=== PATIENT | male | born 1985 | race Caucasian/White ===

== ENCOUNTER 2024-05-16 11:41 | Outpatient (OUT) | payer MEDICAID, SELFPAY ==
[2024-05-16 12:18] LABS: Basophils Absolute Auto 0.1 10^3/uL (0.0-0.1); Basophils Percent Auto 1.1 % (0.2-2.0); Eosinophils Absolute Auto 0.3 10^3/uL (0.0-0.7); Eosinophils Percent Auto 4.7 % (0.9-7.0); Hematocrit 44.3 % (42.0-54.0); Immature Granulocytes Abs Auto 0.02 10^3/uL (0.00-0.03); Immature Granulocytes Pct Auto 0.4 % (0.0-0.5); Lymphocytes Absolute Auto 1.5 10^3/uL (1.2-3.8); Lymphocytes Percent Auto 28.5 % (20.5-60.0); Mean Corpuscular HGB Conc 33.9 g/dL (29.9-35.2); Mean Corpuscular Hemoglobin 31.4 pg (25.9-34.0); Mean Corpuscular Volume 92.9 fL (80.0-94.0); Mean Platelet Volume 10.1 fL (9.5-13.5); Monocytes Absolute Auto 0.6 10^3/uL (0.3-0.8); Monocytes Percent Auto 10.7 % (1.7-12.0); Neutrophils Absolute Auto 2.9 10^3/uL (1.4-6.5); Neutrophils Percent Auto 54.6 % (43.0-75.0); Platelet Count 230 10^3/uL (150-450); Red Blood Count 4.77 10^6/uL (4.70-6.10); Red Cell Distribution Width 12.6 % (11.0-15.0); White Blood Count 5.3 10^3/uL (4.0-11.0)
[2024-05-16 13:06] LABS: Alanine Aminotransferase 55 U/L (16-63); Albumin Globulin Ratio 1.1; Albumin Level 3.6 g/dL (3.4-5.0); Alkaline Phosphatase 95 U/L (46-116); Anion Gap 12.6; Aspartate Amino Transferase 19 U/L (15-37); BUN Creatinine Ratio 20.2; Bilirubin Total 0.3 mg/dL (0.2-1.0); Carbon Dioxide 26.8 mmol/L (21.0-32.0); Chloride 106 mmol/L (98-107); Cholesterol 201 mg/dL (<=200); Estimated GFR (African America >60 (>=60); Estimated GFR (Non-African Ame >60 (>=60); Globulin 3.2 g/dL; Glucose 107 mg/dL (74-106); HDL Cholesterol 50 mg/dL (40-60); Potassium 4.4 mmol/L (3.5-5.1); Sodium 141 mmol/L (136-145); Total Protein 6.8 g/dL (6.4-8.2); Triglycerides 104 mg/dL (<=150); VLDL CHOLESTEROL 20.8 mg/dL
== END 2024-05-16 11:42 | disposition home or self-care (01) ==
LOC: LAB 11:46
PROVIDERS: PCP Family Medicine; Visit Provider Family Medicine
DX: I10 Essential (primary) hypertension (principal)
CPT/HCPCS: 36415; 80053; 80061; 85025

== ENCOUNTER 2024-05-26 12:41 | Outpatient (OUT) | payer OTHER, SELFPAY ==
--- OUTSIDE RECORDS SUMMARY | 2024-05-26 12:48 | XMS_ITS | CCD ---
Author Organization [facility] Care Team Providers Care Tow Driver Name Role Phone COLEMAN LIU Admitting Unavailable COLEMAN LIU Attending Unavailable TISHA, DR IVY Oates Primary Care Unavailable COLEMAN LIU Consulting Unavailable AHDOOT, ANTHONY Consulting Unavailable TISHA, DR IVY Oates Primary Care Unavailable SCOTTY OLIVERA Admitting Unavailable SCOTTY OLIVERA Attending Unavailable JOAQUINA HOPE Consulting Unavailable AHDOOT, ANTHONY Consulting Unavailable TISHA, DR IVY Oates Primary Care Unavailable MARKER, DR VELARDE Admitting Unavailable MARKER, DR VELARDE Attending Unavailable JOAQUINA BONILLA Consulting Unavailable MAYIVAN WALKER Consulting Unavailable TISHA, DR IVY Oates Primary Care Unavailable YAROSH, OLGA Consulting Unavailable SCOTTY OLIVERA Admitting Unavailable SCOTTY OLIVERA Attending Unavailable GONZALEZCLIFTON Byers Consulting Unavailable Ivy Gomez Primary Care Provider [phone] IVY GOMEZ Primary Care Unavailable Luana Simons Unavailable DO Rory Moya Attending Provider [phone] MD Ivy Gomez Primary Care Provider Ivy Gomez Primary Care Unavailable Rory Moya Attending Unavailabl e Rory Moya Admitting Unavailabl e Allergies Allergy Classification Reported Allergen(s) Allergy Type Date of Onset Reaction(s) Facility (1 source) Amoxicillin / Clavulanate Drug Allergy [facility] Repository (1 source) Amoxicillin-Pot Clavulanate Propensity to adverse reactions to drug 2 [facility] (1 source) Amoxicillin / Clavulanate Drug Allergy throat swelling [place] Other (1 source) Unable to Assess Drug allergy (disorder) 2 [facility] Repository Medications Current Medications Medication Drug Class(es) Dates Sig (Normalized) Sig (Original) cephalexin 500 mg oral capsule (1 source) Cephalosporin Antibacterial Start: 09-01-2021 take 1 capsule by mouth every eight hours Cephalexin 500 MG 1 capsule Orally tid for 10 day(s) Aug, Active fluticasone (1 source) Corticosteroid Start: 09-01-2021 take 2 spray(s) nasal route once daily FLONASE 50 mcg 2 sprays nasally qd 2 sprays to each nostril daily until your symptoms improve Aug, Active hydrocortisone 10 mg/ml / neomycin 3.5 mg/ml / polymyxin b 23261 unt/ml otic suspension (1 source) Aminoglycoside Antibacterial, Polymyxin-class Antibacterial, Corticosteroid Start: 09-01-2021 Neomycin-Polymyx in-HC 3.5-39928-1 3 drops right ear Three times a day for 7 days Aug, Active lisinopril 10 mg oral tablet (2 sources) Angiotensin Converting Enzyme Inhibitor take 1 tablet by mouth once daily lisinopril (PRINIVIL;ZESTRI L) 10 MG tablet Take 10 mg by mouth daily 0 Active meclizine hydrochloride 25 mg oral tablet (1 source) Antiemetic take 1 tablet by mouth three times daily as needed for dizziness meclizine (ANTIVERT) 25 MG tablet Take 25 mg by mouth 3 times daily as needed for Dizziness 0 Active predniSONE 20 mg oral tablet (1 source) Start: 09-01-2021 take 1 tablet by mouth every twelve hours predniSONE 20 MG 1 tablet Orally bid for 5 day(s) Aug, Active Problems Active Problems Problem Classification Problem Date Documented Da te Episodic/Chronic Conditions associated with dizziness or vertigo (6 sources) Dizziness and giddiness; Translations: [Dizziness] Onset: 03-19-2022 Episodic Essential hypertension (1 source) Essential (primary) hypertension; Translations: [ESSENTIAL PRIMARY HYPERTENSION] Onset: 04-17-2022 Chronic Heart valve disorders (1 source) Nonrheumatic mitral (valve) prolapse; Translations: [NONRHEUMATIC MITRAL VALVE PROLAPSE] Onset: 09-16-2021 Chronic Nonspecific chest pain (6 sources) Chest pain, unspecified; Translations: [Other chest pain] Onset: 07-22-2021 Episodic Other aftercare (1 source) Other correction (current) drug therapy; 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] Onset: 04-17-2022 Episodic Other nervous system disorders (1 source) Ataxia, unspecified; Translations: [Ataxia, unspecified] Onset: 07-21-2022 Episodic Substance-related disorders (1 source) Nicotine dependence, cigarettes, uncomplicated; Translations: [NICOTINE DEPEND CIGARETTES UNCOMP] Onset: 09-16-2021 Chronic Unclassified (1 source) COUGH, UNSPECIFIED; Translations: [COUGH, UNSPECIFIED] Onset: 09-16-2021 Unclassified (1 source) PERSONAL HISTORY OF COVID-19; Translations: [PERSONAL HISTORY OF COVID-19] Onset: 07-22-2021 Past or Other Problems Problem Classification Problem Date Documented Da te Episodic/Chronic Other ear and sense organ disorders (1 source) Unspecified acute noninfective otitis externa, right ear Onset: 09-01-2021 Resolved: 09-01-2021 Episodic Other lower respiratory disease (1 source) Shortness of breath; Translations: [SHORTNESS OF BREATH] Onset: 09-16-2021 Episodic Other upper respiratory infections (1 source) Acute sinusitis, unspecified Onset: 09-01-2021 Resolved: 09-01-2021 Episodic Otitis media and related conditions (1 source) Otitis media, unspecified, right ear Onset: 09-01-2021 Resolved: 09-01-2021 Episodic Results Test Name Value Interpretation Reference Range Facility MR head/brain wo/w conon MR head/brain wo/w con [place] [address] MRI Report Signed Patient: Doroteo Sharif MR#: [id number] : 1985 Acct:[id number] Age/Sex: 37 / M ADM Date: 07/21/22 Loc: MR Room: Type: [facility] Attending Dr: Rory Moya DO Copies to: Hugh Moya DO Ordering Provider: Hugh Moya DO Date of Service: 07/21/22 MR/MR head/brain wo/w con: R27.0 MR head/brain wo/w con 07/21/2022 10:19 AM SIGN AND SYMPTOMS: Left-sided headaches, dizziness PROTOCOL: Multiplanar multisequence MR images of the brain were obtained with and without IV contrast CONTRAST: 17 mL of intravenous ProHance COMPARISON: None. FINDINGS: Extra axial spaces: Age appropriate. Hemorrhage: None. Ventricular system: Within normal limits. Basal cisterns: Within normal limits and not effaced. Cerebral parenchyma: Normal in signal. There is no abnormal postcontrast enhancement. Midline shift: None.. Cerebellum: Within normal limits. Brainstem: Within normal limits. OTHER: Calvarium: Normal marrow signal. Vascular system: Satisfactory flow voids within the anterior and posterior circulation. Visualized Paranasal sinuses: Within normal limits. Visualized Orbits: Within normal limits. Visualized upper cervical spine: Within normal limits. Sella and skull base: Within normal limits. MR/MR head/brain wo/w con IMPRESSION: No acute intracranial pathology. No abnormal postcontrast enhancement. Impression dictated by: Cornelius Bernal M.D.07/21/2022 1:58 PM Dictation Location: [place] [address] Transcribed By: [facility] 07/21/22 1358 Dictated By: Cornelius Bernal II, MD 07/21/22 1351 Signed By: 07/21/22 1358 [facility] Troponinon 04-19-2022 Troponin, High Sens <6 Normal 0-22 [facility] Comment on above: Result Comment: High Sensitivity Troponin values cannot be compared with other Troponin methodologies. Patients with high levels of Biotin oral intake (i.e >5mg/day) may have falsely decreased Troponin levels. Samples collected within 8 hours of biotin intake may require additional information for diagnosis. Performed By: #### T MICHELL #### [facility] [address] [place] [address] Coil Winder Strap: Bonilla Wilson MD Troponin, High Sensitivity <6 0 - 22 ng/L [facility] Comment on above: High Sensitivity Troponin values cannot be compared with other Troponin methodologies. Patients with high levels of Biotin oral intake (i.e >5mg/day) may have falsely decreased Troponin levels. Samples collected within 8 hours of biotin intake may require additional information for diagnosis. [facility] XR CHEST PORTABLEon 04-19-20 XR CHEST PORTABLE EXAMINATION: ONE XRAY VIEW OF THE CHEST 04/19/2022 4:25 pm COMPARISON: None. HISTORY: ORDERING SYSTEM PROVIDED HISTORY: Intermittent chest pain TECHNOLOGIST PROVIDED HISTORY: Intermittent chest pain FINDINGS: The lungs are without acute focal process. There is no effusion or pneumothorax. The cardiomediastinal silhouette is without acute process. The osseous structures are without acute process. IMPRESSION: No acute process. Interpreted by: Eduardo Mcclure MD Signed by: Eduardo Mcclure MD 04/19/[address] [facility] No acute process. [facility] EXAMINATION: ONE XRAY VIEW OF THE CHEST 04/19/2022 4:25 pm COMPARISON: None. HISTORY: ORDERING SYSTEM PROVIDED HISTORY: Intermittent chest pain TECHNOLOGIST PROVIDED HISTORY: Intermittent chest pain FINDINGS: The lungs are without acute focal process. There is no effusion or pneumothorax. The cardiomediastinal silhouette is without acute process. The osseous structures are without acute process. [facility] Eduardo Mcclure MD - 04/19/2022 EXAMINATION: ONE XRAY VIEW OF THE CHEST 04/19/2022 4:25 pm COMPARISON: None. HISTORY: ORDERING SYSTEM PROVIDED HISTORY: Intermittent chest pain TECHNOLOGIST PROVIDED HISTORY: Intermittent chest pain FINDINGS: The lungs are without acute focal process. There is no effusion or pneumothorax. The cardiomediastinal silhouette is without acute process. The osseous structures are without acute process. IMPRESSION: No acute process. [facility] Phone: Radiology Study observation (narrative) [facility] [employer] Phone: XR CHEST PORTABLEOrdered By: Eduardo Mcclure on 04-19-2022 [facility] [employer] [facility] Phone: CBC AUTO DIFFon 04-15-2022 BASO # 0.1 103/ul Normal 0.0-0.1 [facility] Comment on above: Performed By: #### C BC ####[facility] [address] [place], [place] [address]FgAlicia Agosto Basophils/100 WBC (Bld) 0.7 % Normal 0.2-2.0 [facility] Comment on above: Performed By: #### C BC ####[facility] [address] [place] [id number]. Chioma Agosto EO # 0.2 103/ul Normal 0.0-0.7 [facility] Comment on above: Performed By: #### C BC ####[facility] [address] [place] [id number]. Chioma Agosto Eosinophils/100 WBC (Bld) 1.8 % Normal 0.9-7.0 [facility] Comment on above: Performed By: #### C BC ####[facility] [address] [place], [place] [address]Dr. Chioma Agosto Erythrocyte distribution width (RBC) [Ratio] 13.0 % Normal 11.0-15.0 [facility] Comment on above: Performed By: #### C BC ####[facility] Ph[address] [place], [place] [address]Dr. Chioma Agosto Hematocrit (Bld) [Volume fraction] 44.9 % Normal 42.0-54.0 [facility] Comment on above: Performed By: #### C BC ####[facility] [address] [place], [place] [address]Dr. Chioma Agosto Hemoglobin (Bld) [Mass/Vol] 14.9 g/dL Normal 14.0-18.0 [facility] Comment on above: Performed By: #### C BC ####[facility] [address] [place], [place] [address]Dr. Chioma Agosto IG # 0.03 10e3/ul Normal 0.00-0.03 [facility] Comment on above: Performed By: #### C BC ####[facility] [address] [place], [place] [address]Dr. Chioma Agosto IG % 0.4 % Normal 0.0-0.5 [facility] Comment on above: Performed By: #### C BC ####[facility] [address] [place], [place] [address]Dr. Chioma Agosto LYMPH # 2.6 103/ul Normal 1.2-3.8 [facility] Comment on above: Performed By: #### C BC ####[facility] [address] [place] [id number]. Chioma Agosto Lymphocytes/100 WBC (Bld) 31.8 % Normal 20.5-60.0 [facility] Comment on above: Performed By: #### C BC ####[facility] [address]th[address] [place] [id number]. Chioma Agosto MANUAL DIFF REQ NO Normal [facility] Comment on above: Performed By: #### C BC ####[facility] [address] [place] [id number]. Chioma Agosto MCH (RBC) [Entitic mass] 31.8 pg Normal 25.9-34.0 [facility] Comment on above: Performed By: #### C BC ####[facility] [address] [place], [place] [id number]. Chioma Surendra MCHC (RBC) [Mass/Vol] 33.2 g/dL Normal 29.9-35.2 [facility] Comment on above: Performed By: #### C BC ####[facility] [address] [place] [id number]. Chioma Agosto MCV (RBC) [Entitic vol] 95.7 fL Critically high 80.0-94.0 [facility] Comment on above: Performed By: #### C BC ####[facility] [address] [place], [place] [address]Dr. Chioma Surendra MONO # 0.6 103/ul Normal 0.3-0.8 [facility] Comment on above: Performed By: #### C BC ####[facility] [address] [place], [place] [id number]. Chioma Surendra Monocytes/100 WBC (Bld) 7.3 % Normal 1.7-12.0 [facility] Comment on above: Performed By: #### C BC ####[facility] [address] [place], [place] [id number]. Chioma Agosto NEUT # 4.8 103/ul Normal 1.4-6.5 [facility] Comment on above: Performed By: #### C BC ####[facility] [address] [place] [id number]. Chioma Agosto Neutrophils/100 WBC (Bld) 58.0 % Normal 43.0-75.0 [facility] Comment on above: Performed By: #### C BC ####[facility] [address] [place] [id number]. Chioma Agosto Platelet mean volume (Bld) [Entitic vol] 10.7 fL Normal 9.5-13.5 [facility] Comment on above: Performed By: #### C BC ####[facility] [address] [place] [id number]. Chioma Agosto PLT 213 103/ul Normal 150-450 [facility] Comment on above: Performed By: #### C BC ####[facility] [address] [place] [address]Dr. Chioma Agosto RBC 4.69 106/ul Critically low 4.70-6.10 [facility] Comment on above: Performed By: #### C BC ####[facility] [address] [place] [id number]. Chioma Agosot WBC 8.2 103/ul Normal 4.0-11.0 [facility] Comment on above: Performed By: #### C BC ####[facility] [address] [place] [address]Dr. Chioma Agosto LIPASEon 04-15-2022 Lipase [Catalytic activity/Vol] 47.0 U/L Critically low 73.0-393.0 [facility] Comment on above: Performed By: #### C MP, HSTROPN, LIPA, MG #### [facility] [address] [place] [address] [address] Chioma Agosto MAGNESIUMon 04-15-2022 Magnesium [Mass/Vol] 2.0 mg/dL Normal 1.8-2.4 [facility] Comment on above: Performed By: #### C MP, HSTROPN, LIPA, MG #### [facility] [address] [place] [address] [address] Chioma Agosto PROF 14(COMP METB)on 022 Albumin [Mass/Vol] 4.2 g/dL Normal 3.4-5.0 [facility] Comment on above: Performed By: #### C MP, HSTROPN, LIPA, MG #### [facility] [address] [place] [address] Dr. Chioma Agosto Albumin/Globulin [Mass ratio] 1.4 {ratio} Normal [facility] Comment on above: Performed By: #### C MP, HSTROPN, LIPA, MG #### [facility] [address] [place] [address] Dr. Chioma Agosto ALP [Catalytic activity/Vol] 82 U/L Normal 46-116 [facility] Comment on above: Performed By: #### C MP, HSTROPN, LIPA, MG #### [facility] [address] [place] [address] Dr. Chioma Agosto ALT [Catalytic activity/Vol] 31 U/L Normal 16-63 [facility] Comment on above: Performed By: #### C MP, HSTROPN, LIPA, MG #### [facility] [address] [place] [address] Dr. Chioma Agosto Anion gap [Moles/Vol] 14.1 mmol/L Normal [facility] Comment on above: Performed By: #### C MP, HSTROPN, LIPA, MG #### [facility] [address] [place] [address] Dr. Chioma Agosto AST [Catalytic activity/Vol] 20 U/L Normal 15-37 [facility] Comment on above: Performed By: #### C MP, HSTROPN, LIPA, MG #### [facility] [address] [place] [address] Dr. Chioma Agosto Bilirubin [Mass/Vol] 0.6 mg/dL Normal 0.2-1.0 [facility] Comment on above: Performed By: #### C MP, HSTROPN, LIPA, MG #### [facility] [address] [place] [address] Dr. Chioma Agosto Calcium [Mass/Vol] 9.3 mg/dL Normal 8.5-10.1 [facility] Comment on above: Performed By: #### C MP, HSTROPN, LIPA, MG #### [facility] [address] [place] [address] [address] Chioma Agosto Chloride [Moles/Vol] 105 mmol/L Normal 98-107 [facility] Comment on above: Performed By: #### C MP, HSTROPN, LIPA, MG #### [facility] [address] [place] [address] [address] Chioma Agosto CO2 [Moles/Vol] 25.6 mmol/L Normal 21.0-32.0 [facility] Comment on above: Performed By: #### C MP, HSTROPN, LIPA, MG #### [facility] [address] [place] [address] [address] Chioma Agosto Creatinine [Mass/Vol] 0.87 mg/dL Normal 0.70-1.30 [facility] Comment on above: Performed By: #### C MP, HSTROPN, LIPA, MG #### [facility] [address] [place] [address] [address] Chioma Agosto EGFR-AF NIGERIEN >60 Normal >=60 [facility] Comment on above: Performed By: #### C MP, HSTROPN, LIPA, MG #### [facility] [address] [place] [address] Dr. Chioma Agosto EGFR-NON AF NIGERIEN >60 Normal >=60 [facility] Comment on above: Performed By: #### C MP, HSTROPN, LIPA, MG #### [facility] [address] [place] [address] [address] Chioma Agosto Globulin (S) [Mass/Vol] 2.9 g/dL Normal [facility] Comment on above: Performed By: #### C MP, HSTROPN, LIPA, MG #### [facility] [address] [place] [address] [address] Chioma Agosto Glucose [Mass/Vol] 123 mg/dL Critically high 74-106 [facility] Comment on above: Performed By: #### C MP, HSTROPN, LIPA, MG #### [facility] [address] [place] [address] Dr. Chioma Agosto Potassium [Moles/Vol] 3.7 mmol/L Normal 3.5-5.1 [facility] Comment on above: Performed By: #### C MP, HSTROPN, LIPA, MG #### [facility] [address] [place] [address] Dr. Chioma Agosto Protein [Mass/Vol] 7.1 g/dL Normal 6.4-8.2 [facility] Comment on above: Performed By: #### C MP, HSTROPN, LIPA, MG #### [facility] [address] [place] [address] Dr. Chioma Agosto Sodium [Moles/Vol] 141 mmol/L Normal 136-145 [facility] Comment on above: Performed By: #### C MP, HSTROPN, LIPA, MG #### [facility] [address] [place] [address] Dr. Chioma Agosto Urea nitrogen [Mass/Vol] 14.0 mg/dL Normal 7.0-18.0 [facility] Comment on above: Performed By: #### C MP, HSTROPN, LIPA, MG #### [facility] [address] [place] [address] Dr. Chioma Agosto Urea nitrogen/Creatinine [Mass ratio] 16.1 mg/mg Normal [facility] Comment on above: Performed By: #### C MP, HSTROPN, LIPA, MG #### [facility] [address] [place] [address] Dr. Chioma Agosto TROPONIN, HIGH SENSITIVITYon 04-15-2022 HSTROP 4.6 pg/mL Normal 4.0-76.1 [facility] Comment on above: Result Comment: CUT- OFF POINTS HAVE BEEN ESTABLISHED BASED ON THE FOURTH UNIVERSAL DEFINITIONS OF MYOCARDIAL INFARCTION. THE UPPER REFERENCE LIMIT (URL) OF TROPONIN, DEFINED THE 99TH PERCENTILE OF cTnI DISTRIBUTION IN A REFERENCE POPULATION, HAS BEEN CONFIRMED THE DECISION THRESHOLD FOR NE DIAGNOSIS. Performed By: #### H STROPN #### [facility] [address] [place] [address] [address] Chioma Agosto HSTROP 4.8 pg/mL Normal 4.0-76.1 [facility] Comment on above: Result Comment: CUT- OFF POINTS HAVE BEEN ESTABLISHED BASED ON THE FOURTH UNIVERSAL DEFINITIONS OF MYOCARDIAL INFARCTION. THE UPPER REFERENCE LIMIT (URL) OF TROPONIN, DEFINED THE 99TH PERCENTILE OF cTnI DISTRIBUTION IN A REFERENCE POPULATION, HAS BEEN CONFIRMED THE DECISION THRESHOLD FOR NE DIAGNOSIS. Performed By: #### C MP, HSTROPN, LIPA, MG #### [facility] [address] [place] [address] [address] Chioma Agosto XR CHEST 1 Von 04-15-2022 XR CHEST 1 V EXAM: XR CHEST 1 V HISTORY: CHEST PAIN, UNSPECIFIED EXAM: XR CHEST 1 V INDICATION: 37 years old Male CHEST PAIN, UNSPECIFIED COMPARISON: March 19, 2022 FINDINGS: The cardiac silhouette is normal. There is no pulmonary edema. The lungs are clear. There is no pneumonia. There is no pneumothorax. There is no abnormal foreign body. IMPRESSION: There is no acute abnormality. Electronically authenticated by: CLIFTON GONZALEZ Date: 2022-04-15 19:29 Normal [facility] CBC AUTO DIFFon 03-19-2022 BASO # 0.1 103/ul Normal 0.0-0.1 [facility] Comment on above: Performed By: #### C BC #### [facility] [address] [place] [address] [address] Chioma Agosto Basophils/100 WBC (Bld) 0.9 % Normal 0.2-2.0 [facility] Comment on above: Performed By: #### C BC #### [facility] [address] [place] [address] [address] Chioma Agosto EO # 0.2 103/ul Normal 0.0-0.7 [facility] Comment on above: Performed By: #### C BC #### [facility] [address] [place] [address] [address] Chioma Agosto Eosinophils/100 WBC (Bld) 4.1 % Normal 0.9-7.0 [facility] Comment on above: Performed By: #### C BC #### [facility] [address] [place] [address] Dr. Chioma Agosto Erythrocyte distribution width (RBC) [Ratio] 13.1 % Normal 11.0-15.0 [facility] Comment on above: Performed By: #### C BC #### [facility] [address] [place] [address] Dr. Chioma Agosto Hematocrit (Bld) [Volume fraction] 42.7 % Normal 42.0-54.0 [facility] Comment on above: Performed By: #### C BC #### [facility] [address] [place] [address] Dr. Chioma Agosto Hemoglobin (Bld) [Mass/Vol] 14.6 g/dL Normal 14.0-18.0 [facility] Comment on above: Performed By: #### C BC #### [facility] [address] [place] [address] Dr. Chioma Agosto IG # 0.01 10e3/ul Normal 0.00-0.03 [facility] Comment on above: Performed By: #### C BC #### [facility] [address] [place] [address] Dr. Chioma Agosto IG % 0.2 % Normal 0.0-0.5 [facility] Comment on above: Performed By: #### C BC #### [facility] [address] [place] [address] Dr. Chioma Agosto LYMPH # 2.0 103/ul Normal 1.2-3.8 [facility] Comment on above: Performed By: #### C BC #### [facility] [address] [place] [address] Dr. Chioma Agosto Lymphocytes/100 WBC (Bld) 34.5 % Normal 20.5-60.0 [facility] Comment on above: Performed By: #### C BC #### [facility] [facility] [address] [place] [address] Dr. Chioma Agosto MANUAL DIFF REQ NO Normal [facility] Comment on above: Performed By: #### C BC #### [facility] [address] [place] [address] Dr. Chioma Agosto MCH (RBC) [Entitic mass] 31.9 pg Normal 25.9-34.0 [facility] Comment on above: Performed By: #### C BC #### [facility] [address] [place] [address] Dr. Chioma Agosto MCHC (RBC) [Mass/Vol] 34.2 g/dL Normal 29.9-35.2 [facility] Comment on above: Performed By: #### C BC #### [facility] [address] [place] [address] Dr. Chioma Agosto MCV (RBC) [Entitic vol] 93.2 fL Normal 80.0-94.0 [facility] Comment on above: Performed By: #### C BC #### [facility] [address] [place] [address] Dr. Chioma Agosto MONO # 0.5 103/ul Normal 0.3-0.8 [facility] Comment on above: Performed By: #### C BC #### [facility] [address] [place] [address] Dr. Chioma Agosto Monocytes/100 WBC (Bld) 8.9 % Normal 1.7-12.0 [facility] Comment on above: Performed By: #### C BC #### [facility] [address] [place] [address] Dr. Chioma Agosto NEUT # 3.0 103/ul Normal 1.4-6.5 [facility] Comment on above: Performed By: #### C BC #### [facility] [address] [place] [address] Dr. Chioma Agosto Neutrophils/100 WBC (Bld) 51.4 % Normal 43.0-75.0 [facility] Comment on above: Performed By: #### C BC #### [facility] [address] [place] [address] Dr. Chioma Agosto Platelet mean volume (Bld) [Entitic vol] 10.2 fL Normal 9.5-13.5 [facility] Comment on above: Performed By: #### C BC #### [facility] [address] [address] [address] Chioma Agosto PLT 191 103/ul Normal 150-450 [facility] Comment on above: Performed By: #### C BC #### [facility] [address] [place], [place] [address] Dr. Chioma Agosto RBC 4.58 106/ul Critically low 4.70-6.10 [facility] Comment on above: Performed By: #### C BC #### [facility] [address] [address] [address] Chioma Agosto WBC 5.8 103/ul Normal 4.0-11.0 [facility] Comment on above: Performed By: #### C BC #### [facility] [address] [address] [address] Chioma Agosto PROF 14(COMP METB)on 022 Albumin [Mass/Vol] 3.9 g/dL Normal 3.4-5.0 [facility] Comment on above: Performed By: #### H ANNAMARIA, CMP ####[facility] [address] [address]DrAlicia Agosto Albumin/Globulin [Mass ratio] 1.3 {ratio} Normal [facility] Comment on above: Performed By: #### H ANNAMARIA, CMP ####[facility] [address] [address]Dr. Chioma Agosto ALP [Catalytic activity/Vol] 101 U/L Normal 46-116 [facility] Comment on above: Performed By: #### H FLORENTINOPN, CMP ####[facility] [address] [address]Dr. Chioma Agosto ALT [Catalytic activity/Vol] 38 U/L Normal 16-63 [facility] Comment on above: Performed By: #### H ANNAMARIA, CMP ####[facility] [address] [address]DrAlicia Agosto Anion gap [Moles/Vol] 11.4 mmol/L Normal [facility] Comment on above: Performed By: #### H FLORENTINOPN, CMP ####[facility] [address] [address]Dr. Chioma Agosto AST [Catalytic activity/Vol] 17 U/L Normal 15-37 [facility] Comment on above: Performed By: #### H STROPN, CMP ####[facility] [address] [address]Dr. Chioma Agosto Bilirubin [Mass/Vol] 0.2 mg/dL Normal 0.2-1.0 [facility] Comment on above: Performed By: #### H STROPN, CMP ####[facility] [address] [address]Dr. Chioma Agosto Calcium [Mass/Vol] 8.9 mg/dL Normal 8.5-10.1 [facility] Comment on above: Performed By: #### H STROPN, CMP ####[facility] [address] [place], [place] [address]Dr. Chioma Agosto Chloride [Moles/Vol] 108 mmol/L Critically high 98-107 [facility] Comment on above: Performed By: #### H STROPN, CMP ####[facility] Ir[address] [place], [place] [address]Dr. Chioma Agosto CO2 [Moles/Vol] 25.6 mmol/L Normal 21.0-32.0 [facility] Comment on above: Performed By: #### H STROPN, CMP ####[facility] [address] [place], [place] [address]Dr. Chioma Agosto Creatinine [Mass/Vol] 0.77 mg/dL Normal 0.70-1.30 [facility] Comment on above: Performed By: #### H STROPN, CMP ####[facility] [address] [address]Dr. Chioma Agosto EGFR-AF NIGERIEN >60 Normal >=60 [facility] Comment on above: Performed By: #### H STROPN, CMP ####[facility] [address] [place], [place] [address]Dr. Chioma Agosto EGFR-NON AF NIGERIEN >60 Normal >=60 [facility] Comment on above: Performed By: #### H STROPN, CMP ####[facility] [address] [address]Dr. Chioma Agosto Globulin (S) [Mass/Vol] 2.9 g/dL Normal [facility] Comment on above: Performed By: #### H STROPN, CMP ####[facility] [address] [address]Dr. Chioma Agosto Glucose [Mass/Vol] 98 mg/dL Normal 74-106 [facility] Comment on above: Performed By: #### H STROPN, CMP ####[facility] [address] [place], [place] [address]Dr. Chioma Agosto Potassium [Moles/Vol] 4.0 mmol/L Normal 3.5-5.1 [facility] Comment on above: Performed By: #### H STROPN, CMP ####[facility] Q[address]wtczq[address] [place], [place] [address]Dr. Chioma Agosto Protein [Mass/Vol] 6.8 g/dL Normal 6.4-8.2 [facility] Comment on above: Performed By: #### H STROPN, CMP ####[facility] [address] [place], [place] [address]Dr. Chioma Agosto Sodium [Moles/Vol] 141 mmol/L Normal 136-145 [facility] Comment on above: Performed By: #### H STROPN, CMP ####[facility] [address] [place], [place] [address]Dr. Chioma Agosto Urea nitrogen [Mass/Vol] 16.0 mg/dL Normal 7.0-18.0 [facility] Comment on above: Performed By: #### H STROPN, CMP ####[facility] [address] [place], [place] [address]Dr. Chioma Agosto Urea nitrogen/Creatinine [Mass ratio] 20.8 mg/mg Normal [facility] Comment on above: Performed By: #### H STROPN, CMP ####[facility] [address]rg[address] [place], [place] [address]Dr. Chioma Surendra TROPONIN, HIGH SENSITIVITYon 03-19-2022 HSTROP <4.0 Normal 4.0-76.1 [facility] Comment on above: Result Comment: CUT- OFF POINTS HAVE BEEN ESTABLISHED BASED ON THE FOURTH UNIVERSAL DEFINITIONS OF MYOCARDIAL INFARCTION. THE UPPER REFERENCE LIMIT (URL) OF TROPONIN, DEFINED THE 99TH PERCENTILE OF cTnI DISTRIBUTION IN A REFERENCE POPULATION, HAS BEEN CONFIRMED THE DECISION THRESHOLD FOR NE DIAGNOSIS. Performed By: #### H STROPN, CMP #### [facility] [address] [address] [address] Chioma Agosto XR CHEST 1 Von 03-19-2022 XR CHEST 1 V CXR HISTORY: Shortness of breath COMPARISON: 09/12/2021 TECHNIQUE: 1 view chest submitted for review. FINDINGS: The lungs are adequately expanded without evidence of acute infiltrate or effusion. The cardiac silhouette measures within normal. Pulmonary vascularity is unremarkable. Osseous structures are within normal limits for age. IMPRESSION: No plain film evidence for acute cardiopulmonary disease. Electronically authenticated by: IVAN MAY Date: 2022-03-19 21:07 Normal [facility] BNPon 09-12-2021 Natriuretic peptide B (Bld) [Mass/Vol] 10.0 pg/mL Normal <=450.0 [facility] Comment on above: Performed By: #### C MP, BNP, HSTROPN ####[facility] [address] [id number]. Chioma Agosto CBC AUTO DIFFon 09-12-2021 BASO # 0.1 103/ul Normal 0.0-0.1 [facility] Comment on above: Performed By: #### C BC ####[facility] [address] [address]DrAlicia Agosto Basophils/100 WBC (Bld) 0.7 % Normal 0.2-2.0 [facility] Comment on above: Performed By: #### C BC ####[facility] [address] [id number] Agosto EO # 0.3 103/ul Normal 0.0-0.7 [facility] Comment on above: Performed By: #### C BC ####[facility] [address] [address]Dr. Chioma Agosto Eosinophils/100 WBC (Bld) 3.4 % Normal 0.9-7.0 [facility] Comment on above: Performed By: #### C BC ####[facility] [address] [place], [place] [address]Dr. Chioma Agosto Erythrocyte distribution width (RBC) [Ratio] 13.7 % Normal 11.0-15.0 [facility] Comment on above: Performed By: #### C BC ####[facility] [address] [place], [place] [address]Dr. Chioma Agosto Hematocrit (Bld) [Volume fraction] 48.9 % Normal 42.0-54.0 [facility] Comment on above: Performed By: #### C BC ####[facility] [address] [place], [place] [address]Dr. Chioma Agosto Hemoglobin (Bld) [Mass/Vol] 16.1 g/dL Normal 14.0-18.0 [facility] Comment on above: Performed By: #### C BC ####[facility] [address] [place], [place] [address]Dr. Chioma Agosto IG # 0.02 10e3/ul Normal 0.00-0.03 [facility] Comment on above: Performed By: #### C BC ####[facility] [address] [place], [place] [address]Dr. Chioma Agosto IG % 0.2 % Normal 0.0-0.5 [facility] Comment on above: Performed By: #### C BC ####[facility] [address] [place], [place] [address]Dr. Chioma Agosto LYMPH # 2.6 103/ul Normal 1.2-3.8 [facility] Comment on above: Performed By: #### C BC ####[facility] [address] [place], [place] [address]Dr. Chioma Agosto Lymphocytes/100 WBC (Bld) 30.7 % Normal 20.5-60.0 [facility] Comment on above: Performed By: #### C BC ####[facility] [address] [id number]. Chioma Agosto MANUAL DIFF REQ NO Normal [facility] Comment on above: Performed By: #### C BC ####[facility] [address] [id number]. Chioma Agosto MCH (RBC) [Entitic mass] 31.8 pg Normal 25.9-34.0 [facility] Comment on above: Performed By: #### C BC ####[facility] [address] [address]Dr. Chioma Agosto MCHC (RBC) [Mass/Vol] 32.9 g/dL Normal 29.9-35.2 [facility] Comment on above: Performed By: #### C BC ####[facility] [address] [address]Dr. Chioma Surendra MCV (RBC) [Entitic vol] 96.4 fL Critically high 80.0-94.0 [facility] Comment on above: Performed By: #### C BC ####[facility] [address] [address]Dr. Chioma Surendra MONO # 1.0 103/ul Critically high 0.3-0.8 [facility] Comment on above: Performed By: #### C BC ####[facility] [address] [address]Dr. Chioma Agosto Monocytes/100 WBC (Bld) 11.2 % Normal 1.7-12.0 [facility] Comment on above: Performed By: #### C BC ####[facility] [address] [address]Dr. Jeaniejason Agosto NEUT # 4.6 103/ul Normal 1.4-6.5 [facility] Comment on above: Performed By: #### C BC ####[facility] [address] [address]Dr. Chioma Agosto Neutrophils/100 WBC (Bld) 53.8 % Normal 43.0-75.0 [facility] Comment on above: Performed By: #### C BC ####[facility] [address] [place], [place] [address]Ha. Chioma Agosto Platelet mean volume (Bld) [Entitic vol] 10.5 fL Normal 9.5-13.5 [facility] Comment on above: Performed By: #### C BC ####[facility] [address] [place], [place] [address]Oc. Chioma Agosto PLT 247 103/ul Normal 150-450 [facility] Comment on above: Performed By: #### C BC ####[facility] [address] [place], [place] [address]At. Chioma Agosto RBC 5.07 106/ul Normal 4.70-6.10 [facility] Comment on above: Performed By: #### C BC ####[facility] [address] [place], [place] [address]Am. Chioma Agosto WBC 8.6 103/ul Normal 4.0-11.0 [facility] Comment on above: Performed By: #### C BC ####[facility] [address] [id number]. Chioma Agosto D-DIMERon 09-12-2021 D-DIMER 0.28 mg/L FEU Normal 0.19-0.50 [facility] Comment on above: Performed By: #### D DIM ####[facility] [address] [place], [place] [address]Ua. Chioma Agosto D-DIMER COMMENTS SEE BELOW Normal [facility] Comment on above: Result Comment: Incr eases in D-Dimer concentration observed with thromboembolic events can be variable due to localization, size, and age of the thrombus. Therefore, a thromboembolic event cannot be diagnosed with certainty on the basis of the reference range. D-Dimers may also be elevated for a variety of disorders including: advanced age, , coronary disease, cancer, liver disease, infection, inflammation, hematoma, DIC, trauma, post-surgery, diabetes, thrombolytic or anticoagulant therapy, stress, and generalized hospitalization. Performed By: #### D DIM ####[facility] [address] [id number]. Chioma Agosto PROF 14(COMP METB)on 021 Albumin [Mass/Vol] 4.3 g/dL Normal 3.5-5.0 [facility] Comment on above: Performed By: #### C MP, BNP, HSTROPN ####[facility] [address] [address]Dr. Chioma Agosto Albumin/Globulin [Mass ratio] 1.2 {ratio} Normal [facility] Comment on above: Performed By: #### C MP, BNP, HSTROPN ####[facility] [address] [place], [place] [address]Dr. Chioma Agosto ALP [Catalytic activity/Vol] 118 U/L Normal 38-126 [facility] Comment on above: Performed By: #### C MP, BNP, HSTROPN ####[facility] [address] [place], [place] [address]Dr. Chioma Agosto ALT [Catalytic activity/Vol] 48 U/L Normal 21-72 [facility] Comment on above: Performed By: #### C MP, BNP, HSTROPN ####[facility] [address]cc[address] [place], [place] [address]Dr. Chioma Agosto Anion gap [Moles/Vol] 10.3 mmol/L Normal [facility] Comment on above: Performed By: #### C MP, BNP, HSTROPN ####[facility] [address]cas[address]htx[address] [place], [place] [address]Dr. Chioma Agosto AST [Catalytic activity/Vol] 17 U/L Normal 17-59 [facility] Comment on above: Performed By: #### C MP, BNP, HSTROPN ####[facility] [address]zjpcuk[address] [place], [place] [address]Dr. Chioma Agosto Bilirubin [Mass/Vol] 0.3 mg/dL Normal 0.2-1.3 [facility] Comment on above: Performed By: #### C MP, BNP, HSTROPN ####[facility] Dupyneqjac[address] [place], [place] [address]Dr. Chioma Agosto Calcium [Mass/Vol] 9.7 mg/dL Normal 8.4-10.2 [facility] Comment on above: Performed By: #### C MP, BNP, HSTROPN ####[facility] [address] [address]Dr. Chioma Agosto Chloride [Moles/Vol] 100 mmol/L Normal 98-107 [facility] Comment on above: Performed By: #### C MP, BNP, HSTROPN ####[facility] [address] [address]Dr. Chioma Agosto CO2 [Moles/Vol] 29.0 mmol/L Normal 22.0-30.0 [facility] Comment on above: Performed By: #### C MP, BNP, HSTROPN ####[facility] [address]xup[address] [place], [place] [address]Dr. Chioma Agosto Creatinine [Mass/Vol] 0.86 mg/dL Normal 0.66-1.25 [facility] Comment on above: Performed By: #### C MP, BNP, HSTROPN ####[facility] [address] [place], [place] [address]Dr. Chioma Agosto EGFR-AF NIGERIEN >60 Normal >=60 [facility] Comment on above: Performed By: #### C MP, BNP, HSTROPN ####[facility] [address] [place], [place] [address]Dr. Chioma Agosto EGFR-NON AF NIGERIEN >60 Normal >=60 [facility] Comment on above: Performed By: #### C MP, BNP, HSTROPN ####[facility] [address] [address]Dr. Chioma Agosto Globulin (S) [Mass/Vol] 3.6 g/dL Normal [facility] Comment on above: Performed By: #### C MP, BNP, HSTROPN ####[facility] [address] [address]Dr. Chioma Agosto Glucose [Mass/Vol] 79 mg/dL Normal 74-106 [facility] Comment on above: Performed By: #### C MP, BNP, HSTROPN ####[facility] [address] [address]Dr. Chioma Agosto Potassium [Moles/Vol] 4.3 mmol/L Normal 3.4-5.0 [facility] Comment on above: Performed By: #### C MP, BNP, HSTROPN ####[facility] [address] [address]Dr. Chioma Agosto Protein [Mass/Vol] 7.9 g/dL Normal 6.1-8.2 [facility] Comment on above: Performed By: #### C MP, BNP, HSTROPN ####[facility] [address] [place], [place] [address]Dr. Chioma Agosto Sodium [Moles/Vol] 135 mmol/L Critically low 137-145 [facility] Comment on above: Performed By: #### C MP, BNP, HSTROPN ####[facility] [address]aws[address] [place], [place] [address]Dr. Chioma Agosto Urea nitrogen [Mass/Vol] 21.0 mg/dL Critically high 9.0-20.0 [facility] Comment on above: Performed By: #### C MP, BNP, HSTROPN ####[facility] [address] [place], [place] [address]Dr. Chioma Agosto Urea nitrogen/Creatinine [Mass ratio] 24.4 mg/mg Normal [facility] Comment on above: Performed By: #### C MP, BNP, HSTROPN ####[facility] [address] [place], [place] [address]Dr. Chioma Surendra TROPONIN, HIGH SENSITIVITYon 09-12-2021 HSTROP 5.2 pg/mL Normal 4.0-42.2 [facility] Comment on above: Result Comment: CUT- OFF POINTS HAVE BEEN ESTABLISHED BASED ON THE FOURTH UNIVERSAL DEFINITIONS OF MYOCARDIAL INFARCTION. THE UPPER REFERENCE LIMIT (URL) OF TROPONIN, DEFINED THE 99TH PERCENTILE OF cTnI DISTRIBUTION IN A REFERENCE POPULATION, HAS BEEN CONFIRMED THE DECISION THRESHOLD FOR NE DIAGNOSIS. Performed By: #### C MP, BNP, HSTROPN ####[facility] [address] [place], [place] [address]Dr. Chioma Agosto XR CHEST 1 Von 09-12-2021 XR CHEST 1 V EXAMINATION: XR CHES T 1 V, , 09/12/2021 4:58 PM EST INDICATION: CHEST PAIN, UNSPECIFIED HISTORY: Ordering Provider Reason for Exam: Technologist Note: Additional: COMPARISON: Chest 07/18/2021. TECHNIQUE: Chest x-ray: One view. FINDINGS: No pneumothorax, pleural effusion or focal airspace consolidation. Heart is normal in size. Bony thorax is unremarkable. IMPRESSION: No acute cardiopulmonary process. Electronically authenticated by: ANTHONY SOMMER Date: 2021-09-12 17:53 Normal [facility] D-DIMERon 07-18-2021 D-DIMER 0.49 mg/L FEU Normal 0.19-0.50 [facility] Comment on above: Performed By: #### D DIM ####[facility] [address] [place], [place] [address]UpAlicia Chioma [facility] D-DIMER COMMENTS SEE BELOW Normal [facility] Comment on above: Result Comment: Incr eases in D-Dimer concentration observed with thromboembolic events can be variable due to localization, size, and age of the thrombus. Therefore, a thromboembolic event cannot be diagnosed with certainty on the basis of the reference range. D-Dimers may also be elevated for a variety of disorders including: advanced age, , coronary disease, cancer, liver disease, infection, inflammation, hematoma, DIC, trauma, post-surgery, diabetes, thrombolytic or anticoagulant therapy, stress, and generalized hospitalization. Performed By: #### D DIM ####[facility] [address] [place], [place] [address]Cu. Chioma Agosto XR CHEST 1 Von 07-18-2021 XR CHEST 1 V EXAM: XR CHEST 1 V CLINICAL HISTORY: 36 years old Male presenting with chest pain. TECHNIQUE: 1 view chest x-ray. COMPARISON: None. FINDINGS: No pneumothorax, pleural effusion or focal airspace consolidation. Heart is normal in size. Bony thorax is unremarkable. IMPRESSION: No acute cardiopulmonary process. Electronically authenticated by: ANTHONY SOMMER Date: 2021-07-18 19:13 Normal [facility] Vital Signs Date Time Vital Sign Value Performing Clinician Facility 07-21-2022 06:44-0400 Body height 175.26 cm DO Rory Moya Work Phone: [facility] 07-21-2022 06:44-0400 Body weight 86.18 kg DO Rory Moya Work Phone: [facility] 04-19-2022 16:44-0400 Diastolic blood pressure 81 mm[Hg] Ivy Gomez Work Phone: [employer] 04-19-2022 16:44-0400 Heart rate 88 /min Ivy Gomez Work Phone: [employer] 04-19-2022 16:44-0400 Respiratory rate 24 /min Ivy Goemz Work Phone: [employer] 04-19-2022 16:44-0400 SaO2% (BldA) [Mass fraction] 97 % Ivy Gomez Work Phone: [employer] 04-19-2022 16:44-0400 Systolic blood pressure 124 mm[Hg] Ivy Gomez Work Phone: [employer] 04-19-2022 15:58-0400 Body temperature 98.8 [degF] Ivy oGmez Work Phone: [employer] 09-01-2021 13:30-0400 Body height 175.26 cm Luana Simons Other [facility] Other 09-01-2021 13:30-0400 Body mass index (BMI) [Ratio] 27.32 kg/m2 Luana Simons Other [facility] Other 09-01-2021 13:30-0400 Body temperature 100.1 [degF] Luana Simons Other [facility] Other 09-01-2021 13:30-0400 Body weight 83.92 kg Luana Simons Other [facility] Other 09-01-2021 13:30-0400 Respiratory rate 18 /min Luana Simons Other [facility] Other 09-01-2021 13:30-0400 SaO2% (BldA) [Mass fraction] 97 % Luana Simons Other [facility] Other Encounters Encounter Date Encounter Type Care Provider Facility Start: 07-21-2022 End: 07-21-2022 ambulatory Ivy Gomez Facility:[facility] Start: 07-21-2022 End: 07-21-2022 Patient encounter procedure DO Rory Moya Work Phone: [facility] [place] Start: 04-19-2022 [facility] Start: 04-19-2022 End: 04-19-2022 Emergency department patient visit Ivyher Gomez Work Phone: [facility] ED Comment on above: Atypical chest pain (Primary Dx); Dizziness Start: 04-15-2022 End: 04-16-[address] IVY GOMEZ Facility:[facility] Start: 03-19-2022 End: 03-20-[address] IVY GOMEZ Facility:[facility] Start: 09-12-2021 End: 09-12-[address] IVY GOMEZ Facility:[facility] Start: 09-01-2021 End: 09-01-2021 ambulatory Luana Simons Other [facility] Start: 09-01-2021 Office outpatient ne w 20 minutes Luana Simons [facility] Start: 07-18-2021 End: 07-18-2021 ambulatory [facility] Facility:[facility]1 Procedures Date Procedure Procedure Detail Performing Clinician Start: 07-21-2022 MRI of head DO Esdras Moya Work Phone: Start: 04-19-2022 Radiologic exam ches t single view Erik Mora PA-C Work Phone: Start: 04-19-2022 Assay of troponin quantitative Erik Mora PA-C Work Phone: Start: 04-19-2022 Ecg routine ecg w/le ast 12 lds w/i&r Erik Mora PA-C Work Phone: Plan of Treatment Date Care Activity Detail Author Start: 07-03-2022 Influenza vaccination Flu vacc ine (Season Ended) [facility] Start: 2002 DTaP/Tdap/Td vaccine (1 - Tdap) DTaP/Tdap/Td vaccine (1 - Tdap) [facility] Start: 2001 Hepatitis C screening Hepatitis C sc reen [facility] Start: 1998 HIV screening HIV screen [facility] Start: 1995 Depression Screen Depression Screen [facility] Start: 1989 Pneumococcal 0-64 ye ars Vaccine (1 - PCV) Pneumococcal 0-64 years Vaccine (1 - PCV) [facility] Start: 1988 COVID-19 Vaccine (1) COVID-19 Vaccin e (1) [facility] Start: 1984 Varicella vaccine (1 of 2 - 2-dose childhood series) Varicella vaccine (1 of 2 - 2-dose childhood series) [facility] EKG 12 Lead EKG 12 Lead ECG Routine 04/19/2022 4:18 PM EDT [facility] Work Phone: Payers Date Payer Category Payer Self-pay 1985 Unknown [id number] 1983 Unknown [id number] 1983 Unknown [id number] 2.16.84 [id number] 1983 Unknown [id number] [id number] [id number] 1983 Unknown [id number] 2.16.8 [id number] 1959 Unknown [id number] Unknown [id number] 2.16.8 [id number] Social History Date Type Detail Facility Start: 04-19-2022 [facility] History of tobacco use Cigarette Smoker [employer] Phone: Start: 04-19-2022 Cigarettes smoked current (pack per day) - Reported 1 [employer] Phone: Start: 04-19-2022 Tobacco use and exposure Smokeless tobacco non-user [employer] Phone: Start: 04-19-2022 Alcohol intake Ex-drinker (finding) [employer] Phone: Start: 1985 Sex Assigned At Not on file [employer] Phone: Start: 04-09-2022 End: 04-19-2022 Exposure to SARS-CoV-2 (event) Not sure [employer] Phone: Sex Assigned At Sex Assigned At Bir th [facility] Start: 1985 Sex Assigned At Male F [facility] Discharge instructions 04-19-2022 InstructionsAttachments Note Date & Type Note Facility 04-19-2022 Hospital Discharg e instructions Erik Mora PA-C - 04/19/2022 Follow-up with primary care doctor 3 days for reevaluation. Continue home medications as prescribed. Avoid known causes that provoke your symptoms. Promptly return to emergency department for new, changing, worsening of symptoms or other concerns. The following attachments cannot be sent through Care Everywhere.Dizziness (Kenyan)Lightheadedness or Faintness ([place]yan)documented in this encounter [employer] Phone: Evaluation note 09-01-2021 Note Date & Type Note Facility 09-01-2021 Evaluation note Encounter Date Diagnosis Assessment Notes Aug, Acute non-recurrent sinusitis, unspecified location (ICD-10 - J01.90) Aug, Right otitis media, unspecified otitis media type (ICD-10 - H66.91) Aug, Acute otitis externa of right ear, unspecified type (ICD-10 - H60.501) [facility] Other Evaluation note Note Date & Type Note Facility Evaluation note Diagnosis Atypical chest pain- Primary Other chest pain Dizziness Dizziness and giddiness documented in this encounter [employer] Phone: Evaluation note Note Date & Type Note Facility Evaluation note No assessment information availa [facility] Work Phone: History general Narrative - Reported Note Date & Type Note Facility History general Narrative - Reported Type Medical History HTN (hypertension) Surgical History fracture repair right arm [facility] Other Summary Purpose Family History No Family History Records FoundNo Family History Records FoundNo Family History Records Found Advance Directives No Advanced Directives Records Found Advance Directive Response Recorded Date/ Time Advance Directives No July 10:26am Chief Complaint and Reason for Visit Chief Complaint r27.0 Additional Source Comments (unrecognized sect ion and content) No Status Records FoundNo Status Records FoundNo Status Records Found INFORMATION SOURCE (unrecogn ized section and content) DATE CREATED AUTHOR 04/18/2022 [facility] DATE CREATED AUTHOR AUTHOR'S ORGANIZ ATION [facility] DATE CREATED AUTHOR AUTHOR'S ORGANIZ ATION 08/02/2022 [facility] Reason for Visit (unrecogniz ed section and content) Reason Comments Dizziness started yesterday Chest Pain at times Shortness of Breath off and on Care Teams (unrecognized sec tion and content) Tow Driver Relationship Specialty Start Date End Date Ivy Gomez [address] [place] [id number] PCP - General Family Medicine 04/19/22 Team Status: Inactive Member Role Status Dates Rory Moya DO Attending Provider Active Ivy Gomez MD Primary Care Provider Active Team Status: Active Member Role Status Dates Ivy Gomez MD Primary Care Provider Active Goals (unrecognized section and content) Goals may be documented in a n alternate section FOR RECORDS PERTAINING TO PATIENTS WHO ARE OR HAVE BEEN ENROLLED IN A CHEMICAL DEPENDENCY/SUBSTANCEABUSE PROGRAM, SOME INFORMATION MAY BE OMITTED. This clinical summary was aggregated from multiple sources. Caution should be exercised in using it in the provision of clinical care. This summary normalizes information from multiple sources, and as a consequence, information in this document may materially change the coding, format and clinical context of patient data. In addition, data may be omitted in some cases. CLINICAL DECISIONS SHOULD BE BASED ON THE PRIMARY CLINICAL RECORDS. [facility] [employer] [facility]. provides no warranty or guarantee of the accuracy or completeness of information in this document.
[2024-05-26] MEDS: ALBUTEROL SULFATE 2.5 MG/3 ML VIAL NEB IH (13:31)
== END 2024-05-26 12:42 | disposition home or self-care (01) ==
LOC: CARD 12:42
PROVIDERS: PCP Family Medicine; Visit Provider Family Medicine
DX: R05.3 Chronic cough (principal)
CPT/HCPCS: 94060

== ENCOUNTER 2024-06-19 16:44 | Emergency (ER) | payer MEDICAID, SELFPAY ==
[2024-06-19] VITALS (10 sets, daily range): BP systolic 135–140; BP diastolic 93–94; PULSE 90; TEMP 36.8; O2SAT 96–98; BMI 34.0
--- OUTSIDE RECORDS SUMMARY | 2024-06-19 16:53 | XMS_ITS | CCD ---
Author Organization [facility] Inform ion Partnership [facility] Care Team Providers Care Panel Lay Up Worker Name Role Phone COLEMAN LIU Admitting Unavailable COLEMAN LIU Attending Unavailable TISHA, DR IVY Oates Primary Care Unavailable COLMEAN LIU Consulting Unavailable AHDOOT, ANTHONY Consulting Unavailable [...] Consulting Unavailable Ivy Gomez Primary Care Provider IVY GOMEZ Primary Care Unavailable Luana Simons Unavailable DO Rory Moya Attending Provider MD Ivy Gomez Primary Care Provider Ivy Gomez Primary Care Unavailable Rory Moya Attending UnavailRory Greenfield Admitting UnavailKRISTY Blanca Attending Unavailable Allergies Allergy Classification Reported Allergen(s) Allergy Type Date of Onset Reaction(s) Facility (1 source) Amoxicillin / Clavulanate Drug Allergy [facility] Repository (1 source) Amoxicillin-Pot Clavulanate Propensity to adverse reactions to drug 2 [facility]aphylaxis [facility] (1 source) Amoxicillin / Clavulanate Drug Allergy throat swelling [employer] Other (1 source) Unable to Assess Drug allergy (disorder) 2 [facility] Repository Medications Current Medications Medication Drug Class(es) [...] / neomycin 3.5 mg/ml / polymyxin b 60868 unt/ml otic suspension (1 source) Aminoglycoside Antibacterial, Polymyxin-class Antibacterial, Corticosteroid Start: 09-01-2021 Neomycin-Polymyx in-HC [id number] 3 drops right ear Three times a [...] 07-22-2021 Episodic Other aftercare (1 source) Other senior living (current) drug therapy; Translations: [[employer] CURRENT DRUG THERAPY] Onset: 04-17-2022 Episodic Other [...] head/brain wo/w conon MR head/brain wo/w con [facility] [place] [address] MRI Report Signed Patient: Doroteo Sharif MR#: [id number] : 1985 Acct:[id number] Age/Sex: 37 / M ADM Date: 07/21/22 Loc: MR Room: Type: [facility] Attending Dr: Rory Moya DO Copies to: [...] Cornelius Bernal M.D.07/21/2022 1:58 PM Dictation Location: [place] [address] Transcribed By: [facility] 07/21/22 1358 Dictated By: Cornelius Bernal II, MD 07/21/22 1351 Signed By: 07/21/22 1358 [facility] Troponinon 04-19-2022 Troponin, High Sens <6 Normal 0-22 [facility] Comment on above: Result Comment: High Sensitivity Troponin values cannot be compared with other Troponin methodologies. Patients with high levels of Biotin oral intake (i.e >5mg/day) may have falsely decreased Troponin levels. Samples collected within 8 hours of biotin intake may require additional information for diagnosis. Performed By: #### T MICHELL #### [facility] [address] [place] [address] Supervisor [employer]: Bonilla Wilson MD Troponin, High Sensitivity <6 0 - 22 ng/L [facility] Comment on above: High Sensitivity Troponin values cannot be compared with other Troponin methodologies. Patients with high levels of Biotin oral intake (i.e >5mg/day) may have falsely decreased Troponin levels. Samples collected within 8 hours of biotin intake may require additional information for diagnosis. [facility] XR CHEST PORTABLEon 04-19-20 XR CHEST [...] Eduardo Mcclure MD 04/19/22 Final result Normal [facility] No acute process. [facility] EXAMINATION: ONE XRAY VIEW OF THE CHEST 04/19/2022 4:25 pm COMPARISON: None. HISTORY: ORDERING SYSTEM PROVIDED HISTORY: Intermittent chest pain TECHNOLOGIST PROVIDED HISTORY: Intermittent chest pain FINDINGS: The lungs are without acute focal process. There is no effusion or pneumothorax. The cardiomediastinal silhouette is without acute process. The osseous structures are without acute process. [facility] Eduardo Mcclure MD - 04/19/2022 EXAMINATION: [...] without acute process. IMPRESSION: No acute process. [facility] Phone: Radiology Study observation (narrative) [facility] Phone: XR CHEST PORTABLEOrdered By: Eduardo Mcclure on 04-19-2022 [facility] jslyhl Phone: CBC AUTO DIFFon 04-15-2022 BASO # 0.1 103/ul Normal 0.0-0.1 [facility] Comment on above: Performed By: #### C BC ####[facility] [address] [place], [place] [address]UhAlicia Chioma Agosto Basophils/100 WBC (Bld) 0.7 % Normal 0.2-2.0 [facility] Comment on above: Performed By: #### C BC ####[facility] [address] [place] [address]Dr. Chioma Agosto EO # 0.2 103/ul Normal 0.0-0.7 [facility] Comment on above: Performed By: #### C BC ####[facility] [address] [place], [place] [address]Dr. Chioma Agosto Eosinophils/100 WBC (Bld) 1.8 % Normal 0.9-7.0 [facility] Comment on above: Performed By: #### C BC ####[facility] [address] [place], [place] [address]Dr. Chioma Agosto Erythrocyte distribution width (RBC) [Ratio] 13.0 % Normal 11.0-15.0 [facility] Comment on above: Performed By: #### C BC ####[facility] [address] [place], [place] [address]Dr. Chioma Agosto Hematocrit (Bld) [Volume fraction] 44.9 % Normal 42.0-54.0 [facility] Comment on above: Performed By: #### C BC ####[facility] [address] [place], [place] [address]Dr. Chioma Agosto Hemoglobin (Bld) [Mass/Vol] 14.9 g/dL Normal 14.0-18.0 [facility] Comment on above: Performed By: #### C BC ####[facility] [address] [place], [place] [address]Dr. Chioma Agosto IG # 0.03 10e3/ul Normal 0.00-0.03 [facility] Comment on above: Performed By: #### C BC ####[facility] [address] [place], [place] [address]Dr. Chioma Agosto IG % 0.4 % Normal 0.0-0.5 [facility] Comment on above: Performed By: #### C BC ####[facility] [address] [place], [place] [address]Dr. Jeaniejason Agosto LYMPH # 2.6 103/ul Normal 1.2-3.8 [facility] Comment on above: Performed By: #### C BC ####[facility] [address] [place] [address]Dr. Chioma Surendra Lymphocytes/100 WBC (Bld) 31.8 % Normal 20.5-60.0 [facility] Comment on above: Performed By: #### C BC ####[facility] [address] [place] [address]Dr. Chioma Agosto MANUAL DIFF REQ NO Normal [facility] Comment on above: Performed By: #### C BC ####[facility] [address] [place] [address]Dr. Jeaniejason Agosto MCH (RBC) [Entitic mass] 31.8 pg Normal 25.9-34.0 [facility] Comment on above: Performed By: #### C BC ####[facility] [address] [place] [address]Dr. Chioma Agosto MCHC (RBC) [Mass/Vol] 33.2 g/dL Normal 29.9-35.2 [facility] Comment on above: Performed By: #### C BC ####[facility] [address] [place] [address]Dr. Jeaniejason Agosto MCV (RBC) [Entitic vol] 95.7 fL Critically high 80.0-94.0 [facility] Comment on above: Performed By: #### C BC ####[facility] [address] [place], [place] [address]Dr. Chioma Agosto MONO # 0.6 103/ul Normal 0.3-0.8 [facility] Comment on above: Performed By: #### C BC ####[facility] [address] [place] [address]Dr. Chioma Agosto Monocytes/100 WBC (Bld) 7.3 % Normal 1.7-12.0 [facility] Comment on above: Performed By: #### C BC ####[facility] [address] [place], [place] [address]Dr. Chioma Agosto NEUT # 4.8 103/ul Normal 1.4-6.5 [facility] Comment on above: Performed By: #### C BC ####[facility] [address] [place] [address]Dr. Chioma Agosto Neutrophils/100 WBC (Bld) 58.0 % Normal 43.0-75.0 [facility] Comment on above: Performed By: #### C BC ####[facility] [address] [place] [address]Dr. Chioma Agosto Platelet mean volume (Bld) [Entitic vol] 10.7 fL Normal 9.5-13.5 [facility] Comment on above: Performed By: #### C BC ####[facility] [address] [place] [address]Dr. Chioma Agosto PLT 213 103/ul Normal 150-450 [facility] Comment on above: Performed By: #### C BC ####[facility] [address] [place] [address]Dr. Chioma Agosto RBC 4.69 106/ul Critically low 4.70-6.10 [facility] Comment on above: Performed By: #### C BC ####[facility] [address] [place] [address]Dr. Chioma Agosto WBC 8.2 103/ul Normal 4.0-11.0 [facility] Comment on above: Performed By: #### C BC ####[facility] [address] [place] [address]DrAlicia Agosto LIPASEon 04-15-2022 Lipase [Catalytic activity/Vol] 47.0 U/L Critically low 73.0-393.0 [facility] Comment on above: Performed By: #### C MP, HSTROPN, LIPA, MG #### [facility] [address] [place] [address] [address] Chioma Agosto MAGNESIUMon 04-15-2022 Magnesium [Mass/Vol] 2.0 mg/dL Normal 1.8-2.4 [facility] Comment on above: Performed By: #### C MP, HSTROPN, LIPA, MG #### [facility] [address] [place] [address] [address] Chioma Agosto PROF 14(COMP METB)on 022 Albumin [Mass/Vol] 4.2 g/dL Normal 3.4-5.0 [facility] Comment on above: Performed By: #### C MP, HSTROPN, LIPA, MG #### [facility] [address] [place] [address] Dr. Chioma Agosto Albumin/Globulin [Mass ratio] 1.4 {ratio} Normal [facility] Comment on above: Performed By: #### C MP, HSTROPN, LIPA, MG #### [facility] [address] [place] [address] Dr. Chioma Agosto ALP [Catalytic activity/Vol] 82 U/L Normal 46-116 [facility] Comment on above: Performed By: #### C MP, HSTROPN, LIPA, MG #### [facility] [address] [place] [address] Dr. Chioma Agosto ALT [Catalytic activity/Vol] 31 U/L Normal 16-63 [facility] Comment on above: Performed By: #### C MP, HSTROPN, LIPA, MG #### [facility] [address] [place] [address] Dr. Chioma Agosto Anion gap [Moles/Vol] 14.1 mmol/L Normal [facility] Comment on above: Performed By: #### C MP, HSTROPN, LIPA, MG #### [facility] [address] [place] [address] Dr. Chioma Agosto AST [Catalytic activity/Vol] 20 U/L Normal 15-37 [facility] Comment on above: Performed By: #### C MP, HSTROPN, LIPA, MG #### [facility] [address] [place] [address] Dr. Chioma Agosto Bilirubin [Mass/Vol] 0.6 mg/dL Normal 0.2-1.0 [facility] Comment on above: Performed By: #### C MP, HSTROPN, LIPA, MG #### [facility] [address] [place] [address] Dr. Chioma Agosto Calcium [Mass/Vol] 9.3 mg/dL Normal 8.5-10.1 [facility] Comment on above: Performed By: #### C MP, HSTROPN, LIPA, MG #### [facility] [address] [place] [address] [address] Chioma Agosto Chloride [Moles/Vol] 105 mmol/L Normal 98-107 [facility] Comment on above: Performed By: #### C MP, HSTROPN, LIPA, MG #### [facility] [address] [place] [address] [address] Chioma Agosto CO2 [Moles/Vol] 25.6 mmol/L Normal 21.0-32.0 [facility] Comment on above: Performed By: #### C MP, HSTROPN, LIPA, MG #### [facility] [address] [place] [address] Dr. Chioma Agosto Creatinine [Mass/Vol] 0.87 mg/dL Normal 0.70-1.30 [facility] Comment on above: Performed By: #### C MP, HSTROPN, LIPA, MG #### [facility] [address] [place] [address] [address] Chioma Agosto EGFR-AF CAMBODIAN >60 Normal >=60 [facility] Comment on above: Performed By: #### C MP, HSTROPN, LIPA, MG #### [facility] [address] [place] [address] [address] Chioma Agosto EGFR-NON AF CAMBODIAN >60 Normal >=60 [facility] Comment on above: Performed By: #### C MP, HSTROPN, LIPA, MG #### [facility] [address] [place] [address] [address] Chioma Agosto Globulin (S) [Mass/Vol] 2.9 g/dL Normal [facility] Comment on above: Performed By: #### C MP, HSTROPN, LIPA, MG #### [facility] [address] [place] [address] [address] Chioma Agosto Glucose [Mass/Vol] 123 mg/dL Critically high 74-106 [facility] Comment on above: Performed By: #### C MP, HSTROPN, LIPA, MG #### [facility] [address] [place] [address] Dr. Chioma Agosto Potassium [Moles/Vol] 3.7 mmol/L Normal 3.5-5.1 [facility] Comment on above: Performed By: #### C MP, HSTROPN, LIPA, MG #### [facility] [address] [place] [address] [address] Chioma Agosto Protein [Mass/Vol] 7.1 g/dL Normal 6.4-8.2 [facility] Comment on above: Performed By: #### C MP, HSTROPN, LIPA, MG #### [facility] [address] [place] [address] Dr. Chioma Agosto Sodium [Moles/Vol] 141 mmol/L Normal 136-145 [facility] Comment on above: Performed By: #### C MP, HSTROPN, LIPA, MG #### [facility] [address] [place] [address] [address] Chioma Agosto Urea nitrogen [Mass/Vol] 14.0 mg/dL Normal 7.0-18.0 [facility] Comment on above: Performed By: #### C MP, HSTROPN, LIPA, MG #### [facility] [address] [place] [address] Dr. Chioma Agosto Urea nitrogen/Creatinine [Mass ratio] 16.1 mg/mg Normal [facility] Comment on above: Performed By: #### C MP, HSTROPN, LIPA, MG #### [facility] [address] [place] [address] Dr. Chioma Agosto TROPONIN, HIGH SENSITIVITYon 04-15-2022 HSTROP 4.6 pg/mL Normal 4.0-76.1 [facility] Comment on above: Result Comment: CUT- OFF POINTS HAVE BEEN ESTABLISHED BASED ON THE FOURTH UNIVERSAL DEFINITIONS OF MYOCARDIAL INFARCTION. THE UPPER REFERENCE LIMIT (URL) OF TROPONIN, DEFINED THE 99TH PERCENTILE OF cTnI DISTRIBUTION IN A REFERENCE POPULATION, HAS BEEN CONFIRMED THE DECISION THRESHOLD FOR [place] DIAGNOSIS. Performed By: #### H STROPN #### [facility] [address] [place] [address] [address] Chioma Agosto HSTROP 4.8 pg/mL Normal 4.0-76.1 [facility] Comment on above: Result Comment: CUT- OFF POINTS HAVE BEEN ESTABLISHED BASED ON THE FOURTH UNIVERSAL DEFINITIONS OF MYOCARDIAL INFARCTION. THE UPPER REFERENCE LIMIT (URL) OF TROPONIN, DEFINED THE 99TH PERCENTILE OF cTnI DISTRIBUTION IN A REFERENCE POPULATION, HAS BEEN CONFIRMED THE DECISION THRESHOLD FOR [place] DIAGNOSIS. Performed By: #### C MP, HSTROPN, LIPA, MG #### [facility] [address] [place] [address] [address] Chioma Agosto XR CHEST 1 Von [...] CLIFTON GONZALEZ Date: 2022-04-15 19:29 Normal [facility] CBC AUTO DIFFon 03-19-2022 BASO # 0.1 103/ul Normal 0.0-0.1 [facility] Comment on above: Performed By: #### C BC #### [facility] [address] [place] [address] Dr. Chioma Agosto Basophils/100 WBC (Bld) 0.9 % Normal 0.2-2.0 [facility] Comment on above: Performed By: #### C BC #### [facility] [address] [place] [address] [address] Chioma Agosto EO # 0.2 103/ul Normal 0.0-0.7 [facility] Comment on above: Performed By: #### C BC #### [facility] [address] [place] [address] [address] Chioma Agosto Eosinophils/100 WBC (Bld) 4.1 % Normal 0.9-7.0 [facility] Comment on above: Performed By: #### C BC #### [facility] [address] [place] [address] Dr. Chioma Agosto Erythrocyte distribution width (RBC) [Ratio] 13.1 % Normal 11.0-15.0 [facility] Comment on above: Performed By: #### C BC #### [facility] [address] [place] [address] Dr. Chioma Agosto Hematocrit (Bld) [Volume fraction] 42.7 % Normal 42.0-54.0 [facility] Comment on above: Performed By: #### C BC #### [facility] [address] [place] [address] Dr. Chioma Agosto Hemoglobin (Bld) [Mass/Vol] 14.6 g/dL Normal 14.0-18.0 [facility] Comment on above: Performed By: #### C BC #### [facility] [address] [place] [address] Dr. Chioma Agosto IG # 0.01 10e3/ul Normal 0.00-0.03 [facility] Comment on above: Performed By: #### C BC #### [facility] [address] [place] [address] Dr. Chioma Agosto IG % 0.2 % Normal 0.0-0.5 [facility] Comment on above: Performed By: #### C BC #### [facility] [address] [place] [address] Dr. Chioma Agosto LYMPH # 2.0 103/ul Normal 1.2-3.8 [facility] Comment on above: Performed By: #### C BC #### [facility] [address] [place] [address] Dr. Chioma Agosto Lymphocytes/100 WBC (Bld) 34.5 % Normal 20.5-60.0 [facility] Comment on above: Performed By: #### C BC #### [facility] [address] [place] [address] Dr. Chioma Agosto MANUAL DIFF REQ NO Normal [facility] Comment on above: Performed By: #### C BC #### [facility] [address] [place] [address] [address] Chioma Agosto MCH (RBC) [Entitic mass] 31.9 pg Normal 25.9-34.0 [facility] Comment on above: Performed By: #### C BC #### [facility] [address] [place] [address] Dr. Chioma Agosto MCHC (RBC) [Mass/Vol] 34.2 g/dL Normal 29.9-35.2 [facility] Comment on above: Performed By: #### C BC #### [facility] [address] [place] [address] Dr. Chioma Agosto MCV (RBC) [Entitic vol] 93.2 fL Normal 80.0-94.0 [facility] Comment on above: Performed By: #### C BC #### [facility] [address] [place] [address] Dr. Chioma Agosto MONO # 0.5 103/ul Normal 0.3-0.8 [facility] Comment on above: Performed By: #### C BC #### [facility] [address] [place] [address] Dr. Chioma Agosto Monocytes/100 WBC (Bld) 8.9 % Normal 1.7-12.0 [facility] Comment on above: Performed By: #### C BC #### [facility] [address] [place] [address] Dr. Chioma Agosto NEUT # 3.0 103/ul Normal 1.4-6.5 [facility] Comment on above: Performed By: #### C BC #### [facility] [address] [place] [address] Dr. Chioma Agosto Neutrophils/100 WBC (Bld) 51.4 % Normal 43.0-75.0 [facility] Comment on above: Performed By: #### C BC #### [facility] [address] [place] [address] Dr. Chioma Agosto Platelet mean volume (Bld) [Entitic vol] 10.2 fL Normal 9.5-13.5 [facility] Comment on above: Performed By: #### C BC #### [facility] [address] [place] [address] [address] Chioma Agosto PLT 191 103/ul Normal 150-450 [facility] Comment on above: Performed By: #### C BC #### [facility] [address] [place] [address] [address] Chioma Agosto RBC 4.58 106/ul Critically low 4.70-6.10 [facility] Comment on above: Performed By: #### C BC #### [facility] [address] [place] [address] [address] Chioma Agosto WBC 5.8 103/ul Normal 4.0-11.0 [facility] Comment on above: Performed By: #### C BC #### [facility] [address] [place] [address] [address] Chioma Agosto PROF 14(COMP METB)on 022 Albumin [Mass/Vol] 3.9 g/dL Normal 3.4-5.0 [facility] Comment on above: Performed By: #### H ANNAMARIA, CMP ####[facility] [address] [place] [address]DrAlicia Agosto Albumin/Globulin [Mass ratio] 1.3 {ratio} [facility] Comment on above: Performed By: #### H FLORENTINOPN, CMP ####[facility] [address] [place] [address]DrAlicia Agosto ALP [Catalytic activity/Vol] 101 U/L Normal 46-116 [facility] Comment on above: Performed By: #### H FLORENTINOPN, CMP ####[facility] [address] [place] [address]DrAlicia Agosto ALT [Catalytic activity/Vol] 38 U/L Normal 16-63 [facility] Comment on above: Performed By: #### H STROPN, CMP ####[facility] [address] [place] [address]DrAlicia Agosto Anion gap [Moles/Vol] 11.4 mmol/L Normal [facility] Comment on above: Performed By: #### H STROPN, CMP ####[facility] [address] [place] [address]Dr. Chioma Agosto AST [Catalytic activity/Vol] 17 U/L Normal 15-37 [facility] Comment on above: Performed By: #### H STROPN, CMP ####[facility] [address] [place] [address]Dr. Chioma Agosto Bilirubin [Mass/Vol] 0.2 mg/dL Normal 0.2-1.0 [facility] Comment on above: Performed By: #### H STROPN, CMP ####[facility] [address] [place], [place] [address]Dr. Chioma Agosto Calcium [Mass/Vol] 8.9 mg/dL Normal 8.5-10.1 [facility] Comment on above: Performed By: #### H STROPN, CMP ####[facility] [address] [place], [place] [address]Dr. Chioma Agosto Chloride [Moles/Vol] 108 mmol/L Critically high 98-107 [facility] Comment on above: Performed By: #### H STROPN, CMP ####[facility] [address] [place], [place] [address]Dr. Chioma Agosto CO2 [Moles/Vol] 25.6 mmol/L Normal 21.0-32.[address] [facility] Comment on above: Performed By: #### H STROPN, CMP ####[facility] [address] [place], [place] [address]Dr. Chioma Agosto Creatinine [Mass/Vol] 0.77 mg/dL Normal 0.70-1.30 [facility] Comment on above: Performed By: #### H STROPN, CMP ####[facility] [address] [place], [place] [address]Dr. Chioma Agosto EGFR-AF CAMBODIAN >60 Normal >=[address] [facility] [facility] Comment on above: Performed By: #### H STROPN, CMP ####[facility] Dnqog[address] [place], [place] [address]Dr. Chioma Agosto EGFR-NON AF CAMBODIAN >60 Normal >=60 [facility] Comment on above: Performed By: #### H STROPN, CMP ####[facility] [address] [address]Dr. Chioma Agosto Globulin (S) [Mass/Vol] 2.9 g/dL Normal [facility] Comment on above: Performed By: #### H STROPN, CMP ####[facility] [address] [address]Dr. Chioma Agosto Glucose [Mass/Vol] 98 mg/dL Normal 74-106 [facility] Comment on above: Performed By: #### H STROPN, CMP ####[facility] [address] [address]Dr. Chioma Agosto Potassium [Moles/Vol] 4.0 mmol/L Normal 3.5-5.1 [facility] Comment on above: Performed By: #### H ANNAMARIA, CMP ####[facility] B[address] [place], [place] [address]Dr. Chioma Agosto Protein [Mass/Vol] 6.8 g/dL Normal 6.4-8.2 [facility] Comment on above: Performed By: #### H STROVISH, CMP ####[facility] V[address] [place], [place] [address]Dr. Chioma Agosto Sodium [Moles/Vol] 141 mmol/L Normal 136-145 [facility] Comment on above: Performed By: #### H STROPN, CMP ####[facility] [address] [place], [place] [address]Dr. Chioma Agosto Urea nitrogen [Mass/Vol] 16.0 mg/dL Normal 7.0-18.0 [facility] Comment on above: Performed By: #### H STROPN, CMP ####[facility] [address] [place], [place] [address]Dr. Chioma Agosto Urea nitrogen/Creatinine [Mass ratio] 20.8 mg/mg Normal [facility] Comment on above: Performed By: #### H STROPN, CMP ####[facility] Bl[address] [place], [place] [address]DrAlicia Agosto TROPONIN, HIGH SENSITIVITYon 03-19-2022 HSTROP <4.0 Normal 4.0-76.1 [facility] Comment on above: Result Comment: CUT- OFF POINTS HAVE BEEN ESTABLISHED BASED ON THE FOURTH UNIVERSAL DEFINITIONS OF MYOCARDIAL INFARCTION. THE UPPER REFERENCE LIMIT (URL) OF TROPONIN, DEFINED THE 99TH PERCENTILE OF cTnI DISTRIBUTION IN A REFERENCE POPULATION, HAS BEEN CONFIRMED THE DECISION THRESHOLD FOR [place] DIAGNOSIS. Performed By: #### H STROPN, CMP #### [facility] [address] [address] [address] Chioma Agosto XR CHEST 1 Von [...] IVAN MAY Date: 2022-03-19 21:07 Normal [facility] BNPon 09-12-2021 Natriuretic peptide B (Bld) [Mass/Vol] 10.0 pg/mL Normal <=450.0 [facility] Comment on above: Performed By: #### C MP, BNP, HSTROPN ####[facility] [address] [address]Dr. Chioma Agosto CBC AUTO DIFFon 09-12-2021 BASO # 0.1 103/ul Normal 0.0-0.1 [facility] Comment on above: Performed By: #### C BC ####[facility] [address] [address]DrAlicia Agosto Basophils/100 WBC (Bld) 0.7 % Normal 0.2-2.0 [facility] Comment on above: Performed By: #### C BC ####[facility] [address] [address]DrAlicia Agosto EO # 0.3 103/ul Normal 0.0-0.7 [facility] Comment on above: Performed By: #### C BC ####[facility] [address] [address]Dr. Chioma Agosto Eosinophils/100 WBC (Bld) 3.4 % Normal 0.9-7.0 [facility] Comment on above: Performed By: #### C BC ####[facility] [address] [address]Dr. Chioma Agosto Erythrocyte distribution width (RBC) [Ratio] 13.7 % Normal 11.0-15.0 [facility] Comment on above: Performed By: #### C BC ####[facility] L[address] [place], [place] [address]Dr. Chioma Agosto Hematocrit (Bld) [Volume fraction] 48.9 % Normal 42.0-54.0 [facility] Comment on above: Performed By: #### C BC ####[facility] [address] [place], [place] [address]Dr. Chioma Agosto Hemoglobin (Bld) [Mass/Vol] 16.1 g/dL Normal 14.0-18.0 [facility] Comment on above: Performed By: #### C BC ####[facility] [address] [place], [place] [address]Dr. Chioma Agosto IG # 0.02 10e3/ul Normal 0.00-0.03 [facility] Comment on above: Performed By: #### C BC ####[facility] L[address] [place], [place] [address]Dr. Chioma Agosto IG % 0.2 % Normal 0.0-0.5 [facility] Comment on above: Performed By: #### C BC ####[facility] Alff[address] [place], [place] [address]Dr. Chioma Agosto LYMPH # 2.6 103/ul Normal 1.2-3.8 [facility] Comment on above: Performed By: #### C BC ####[facility] Xs[address] [place], [place] [address]Dr. Chioma Agosto Lymphocytes/100 WBC (Bld) 30.7 % Normal 20.5-60.0 [facility] Comment on above: Performed By: #### C BC ####[facility] [address] [address]Dr. Jeaniejason Agosto MANUAL DIFF REQ NO Normal [facility] Comment on above: Performed By: #### C BC ####[facility] [address] [address]Dr. Chioma Agosto MCH (RBC) [Entitic mass] 31.8 pg Normal 25.9-34.0 [facility] Comment on above: Performed By: #### C BC ####[facility] N[address] [place], [place] [address]Dr. Chioma Agosto MCHC (RBC) [Mass/Vol] 32.9 g/dL Normal 29.9-35.2 [facility] Comment on above: Performed By: #### C BC ####[facility] O[address]ejt[address] [place], [place] [address]Dr. Chioma Agosto MCV (RBC) [Entitic vol] 96.4 fL Critically high 80.0-94.0 [facility] Comment on above: Performed By: #### C BC ####[facility] [address] [place], [place] [address]Dr. Chioma Agosto MONO # 1.0 103/ul Critically high 0.3-0.8 [facility] Comment on above: Performed By: #### C BC ####[facility] V[address] [place], [place] [address]Dr. Chioma Agosto Monocytes/100 WBC (Bld) 11.2 % Normal 1.7-12.0 [facility] Comment on above: Performed By: #### C BC ####[facility] [address] [place], [place] [address]Dr. Chioma Agosto NEUT # 4.6 103/ul Normal 1.4-6.5 [facility] Comment on above: Performed By: #### C BC ####[facility] Webhq[address]js[address] [place], [place] [address]Dr. Chioma Agosto Neutrophils/100 WBC (Bld) 53.8 % Normal 43.0-75.0 [facility] Comment on above: Performed By: #### C BC ####[facility] [address] [place] [address]Dr. Chioma Agosto Platelet mean volume (Bld) [Entitic vol] 10.5 fL Normal 9.5-13.5 [facility] Comment on above: Performed By: #### C BC ####[facility] [address] [address]Dr. Chioma Agosto PLT 247 103/ul Normal 150-450 [facility] Comment on above: Performed By: #### C BC ####[facility] [address] [address]Dr. Chioma Agosto RBC 5.07 106/ul Normal 4.70-6.10 [facility] Comment on above: Performed By: #### C BC ####[facility] [address] [place] [address]Dr. Chioma Agosto WBC 8.6 103/ul Normal 4.0-11.0 [facility] Comment on above: Performed By: #### C BC ####[facility] [address] [place] [address]Dr. Chioma Agosto D-DIMERon 09-12-2021 D-DIMER 0.28 mg/L FEU Normal 0.19-0.50 The [facility] Comment on above: Performed By: #### D DIM ####[facility] [address] [address]Dr. Chioma Agosto D-DIMER COMMENTS SEE BELOW Normal The [facility] Comment on above: Result Comment: Incr [...] generalized hospitalization. Performed By: #### D DIM ####[facility] [address] [address]Dr. Chioma Agosto PROF 14(COMP METB)on 021 Albumin [Mass/Vol] 4.3 g/dL Normal 3.5-5.0 [facility] Comment on above: Performed By: #### C MP, BNP, HSTROPN ####[facility] [address] [address]Dr. Chioma Agosto Albumin/Globulin [Mass ratio] 1.2 {ratio} Normal [facility] Comment on above: Performed By: #### C MP, BNP, HSTROPN ####[facility] [address]fw[address] [place] [address]Dr. Chioma Agosto ALP [Catalytic activity/Vol] 118 U/L Normal 38-126 [facility] Comment on above: Performed By: #### C MP, BNP, HSTROPN ####[facility] [address] [place], [place] [address]Dr. Chioma Agosto ALT [Catalytic activity/Vol] 48 U/L Normal 21-72 [facility] Comment on above: Performed By: #### C MP, BNP, HSTROPN ####[facility] [address] [address]Dr. Chioma Agosto Anion gap [Moles/Vol] 10.3 mmol/L Normal [facility] Comment on above: Performed By: #### C MP, BNP, HSTROPN ####[facility] [address] [place], [place] [address]Dr. Chioma Agosto AST [Catalytic activity/Vol] 17 U/L Normal 17-59 [facility] Comment on above: Performed By: #### C MP, BNP, HSTROPN ####[facility] [address] [address]Dr. Chioma Agosto Bilirubin [Mass/Vol] 0.3 mg/dL Normal 0.2-1.3 [facility] Comment on above: Performed By: #### C MP, BNP, HSTROPN ####[facility] X[address] [place], [place] [address]Dr. Chioma Agosto Calcium [Mass/Vol] 9.7 mg/dL Normal 8.4-10.2 [facility] Comment on above: Performed By: #### C MP, BNP, HSTROPN ####[facility] [address] [place] [address]Dr. Chioma Agosto Chloride [Moles/Vol] 100 mmol/L Normal 98-107 [facility] Comment on above: Performed By: #### C MP, BNP, HSTROPN ####[facility] [address] [place], [place] [address]Dr. Chioma Agosto CO2 [Moles/Vol] 29.0 mmol/L Normal 22.0-30.[address] [facility] Comment on above: Performed By: #### C MP, BNP, HSTROPN ####[facility] I[address]esfe[address] [place], [place] [address]Dr. Chioma Agosto Creatinine [Mass/Vol] 0.86 mg/dL Normal 0.66-1.25 [facility] Comment on above: Performed By: #### C MP, BNP, HSTROPN ####[facility] [address] [place], [place] [address]Dr. Chioma Agosto EGFR-AF CAMBODIAN >60 Normal >=[address] [facility] Comment on above: Performed By: #### C MP, BNP, HSTROPN ####[facility] [address] [place], [place] [address]Dr. Chioma Agosto EGFR-NON AF CAMBODIAN >60 Normal >=60 [facility] Comment on above: Performed By: #### C MP, BNP, HSTROPN ####[facility] [address] [address]Dr. Chioma Agosto Globulin (S) [Mass/Vol] 3.6 g/dL Normal [facility] Comment on above: Performed By: #### C MP, BNP, HSTROPN ####[facility] [address]oxidir[address] [place] [address]Dr. Chioma Agosto Glucose [Mass/Vol] 79 mg/dL Normal 74-106 [facility] Comment on above: Performed By: #### C MP, BNP, HSTROPN ####[facility] [address] [place] [address]Dr. Chioma Agosto Potassium [Moles/Vol] 4.3 mmol/L Normal 3.4-5.0 [facility] Comment on above: Performed By: #### C MP, BNP, HSTROPN ####[facility] [address] [place] [address]Dr. Chioma Agosto Protein [Mass/Vol] 7.9 g/dL Normal 6.1-8.2 [facility] Comment on above: Performed By: #### C MP, BNP, HSTROPN ####[facility] [address] [place] [address]Dr. Chioma Agosto Sodium [Moles/Vol] 135 mmol/L Critically low 137-145 [facility] Comment on above: Performed By: #### C MP, BNP, HSTROPN ####[facility] [address] [place] [address]Dr. Chioma Agosto Urea nitrogen [Mass/Vol] 21.0 mg/dL Critically high 9.0-20.0 [facility] Comment on above: Performed By: #### C MP, BNP, HSTROPN ####[facility] [address] [place], [place] [address]Dr. Chioma Agosto Urea nitrogen/Creatinine [Mass ratio] 24.4 mg/mg Normal [facility] Comment on above: Performed By: #### C MP, BNP, HSTROPN ####[facility] [address] [place], [place] [address]Dr. Chioma Agosto TROPONIN, HIGH SENSITIVITYon 09-12-2021 HSTROP 5.2 pg/mL Normal 4.0-42.2 [facility] Comment on above: Result Comment: CUT- OFF POINTS HAVE BEEN ESTABLISHED BASED ON THE FOURTH UNIVERSAL DEFINITIONS OF MYOCARDIAL INFARCTION. THE UPPER REFERENCE LIMIT (URL) OF TROPONIN, DEFINED THE 99TH PERCENTILE OF cTnI DISTRIBUTION IN A REFERENCE POPULATION, HAS BEEN CONFIRMED THE DECISION THRESHOLD FOR [place] DIAGNOSIS. Performed By: #### C MP, BNP, HSTROPN ####[facility] [address] [place], [place] [address]Dr. Chioma Agosto XR CHEST 1 Von 09-12-2021 [...] by: ANTHONY SOMMER Date: 2021-09-12 17:53 Normal [facility] D-DIMERon 07-18-2021 D-DIMER 0.49 mg/L FEU Normal 0.19-0.50 [facility] Comment on above: Performed By: #### D DIM ####[facility] [address] [place], [place] [address]Gj. Chioma [facility] D-DIMER COMMENTS SEE BELOW Normal The [facility] Comment on above: Result Comment: Incr [...] generalized hospitalization. Performed By: #### D DIM ####[facility] [address] [place], [place] [address]Zm. Chioma Agosto XR CHEST 1 Von 07-18-2021 [...] by: ANTHONY SOMMER Date: 2021-07-18 19:13 Normal [facility] Vital Signs Date Time Vital Sign Value Performing Clinician Facility 07-21-2022 06:44-0400 Body height 175.26 cm DO Rory Moya Work Phone: [facility] 07-21-2022 06:44-0400 Body weight 86.18 kg DO Rory Moya Work Phone: [facility] 04-19-2022 16:44-0400 Diastolic blood pressure 81 mm[Hg] Ivy Gomez Work Phone: [facility] 04-19-2022 16:44-0400 Heart rate 88 /min Ivy Gomez Work Phone: [facility] 04-19-2022 16:44-0400 Respiratory rate 24 /min Ivy Gomez Work Phone: [facility] 04-19-2022 16:44-0400 SaO2% (BldA) [Mass fraction] 97 % Ivy Gomez Work Phone: [facility] 04-19-2022 16:44-0400 Systolic blood pressure 124 mm[Hg] Ivy Gomez Work Phone: [facility] 04-19-2022 15:58-0400 Body temperature 98.8 [degF] Ivy Gomez Work Phone: [facility] 09-01-2021 13:30-0400 Body height 175.26 cm Luana Simons Other [employer] Other 09-01-2021 13:30-0400 Body mass index (BMI) [Ratio] 27.32 kg/m2 Luana Simons Other [employer] Other 09-01-2021 13:30-0400 Body temperature 100.1 [degF] Luana Simons Other [employer] Other 09-01-2021 13:30-0400 Body weight 83.92 kg Luana Simons Other [employer] Other 09-01-2021 13:30-0400 Respiratory rate 18 /min Luana Simons Other [employer] Other 09-01-2021 13:30-0400 SaO2% (BldA) [Mass fraction] 97 % Luana Simons Other [employer] Other Encounters Encounter Date Encounter Type Care Provider Facility Start: 06-16-2024 End: 06-16-2024 ambulatory KRISTY CHAUNCEY Not Available Start: 07-21-2022 End: 07-21-2022 ambulatory Ivy Gomez Facility:[facility] Start: 07-21-2022 End: 07-21-2022 Patient encounter procedure DO Rory Moya Work Phone: [facility] [place] Start: 04-19-2022 Emergency department patient visit IVY Oates [facility] Start: 04-19-2022 End: 04-19-2022 Emergency department patient visit Ivy Gomez Work Phone: [facility] ED Comment on above: Atypical chest pain (Primary Dx); Dizziness Start: 04-15-2022 End: 04-16-[address] IVY GOMEZ Facility:[facility] Start: 03-19-2022 End: 03-20-[address] IVY GOMEZ Facility:[facility] Start: 09-12-2021 End: 09-12-[address] IVY GOMEZ Facility:[facility] Start: 09-01-2021 End: 09-01-2021 ambulatory Luana Simons Other [employer] Other Start: 09-01-2021 Office outpatient ne w [...] Influenza vaccination Flu vacc ine (Season Ended) [facility] Start: 2002 DTaP/Tdap/Td vaccine (1 - Tdap) DTaP/Tdap/Td vaccine (1 - Tdap) [facility] Start: 2001 Hepatitis C screening Hepatitis C sc reen [facility] Start: 1998 HIV screening HIV screen [facility] Start: 1995 Depression Screen Depression Screen [facility] Start: 1989 Pneumococcal 0-64 ye ars Vaccine (1 - PCV) Pneumococcal 0-64 years Vaccine (1 - PCV) [facility] Start: 1988 COVID-19 Vaccine (1) COVID-19 Vaccin e (1) [facility] Start: 1984 Varicella vaccine (1 of 2 - 2-dose childhood series) Varicella vaccine (1 of 2 - 2-dose childhood series) [facility] EKG 12 Lead EKG 12 Lead ECG Routine 04/19/2022 4:18 PM EDT [facility] Work Phone: Payers Date Payer Category Payer Medicaid [id number] 2022 Self-pay 1985 Unknown [id number] .16.84 [id number] 1983 Unknown [id number] .16.84 [id number] 1983 Unknown [id number] 2.16.84 [id number] 1983 Unknown [id number] 2.16.84 [id number] 1983 Unknown [id number] 2.16.8 [id number] 1983 Unknown [id number] 2.16.84 [id number] 1959 Unknown [id number] Unknown [id number] 2.16.8 [id number] Social History Date Type Detail Facility Start: 04-19-2022 [facility] [employer] Other History of tobacco use Cigarette Smoker B ON [employer] Phone: Start: 04-19-2022 Cigarettes smoked current (pack per day) - Reported 1 [employer] Phone: Start: 04-19-2022 Tobacco use and exposure Smokeless tobacco non-user [employer] Phone: Start: 04-19-2022 Alcohol intake Ex-drinker (finding) [employer] Phone: Start: 1985 Sex Assigned At Not on file B ON [employer] Phone: Start: 04-09-2022 End: 04-19-2022 Exposure to SARS-CoV-2 (event) Not sure [employer] Phone: Sex Assigned At Sex Assigned At Bir th [employer] Other Start: 1985 Sex Assigned At Male F [facility] Hospital Discharge instructions 04-19-2022 InstructionsAttachments Note Date [...] attachments cannot be sent through Care Everywhere.Dizziness (Croatian)Lightheadedness or Faintness (Croatian)documented in this encounter [employer] Phone: Evaluation note 09-01-2021 Note Date & Type Note Facility 09-01-2021 Evaluation note Encounter Date Diagnosis Assessment Notes Aug, Acute non-recurrent sinusitis, unspecified location (ICD-10 - J01.90) Aug, Right otitis media, unspecified otitis media type (ICD-10 - H66.91) Aug, Acute otitis externa of right ear, unspecified type (ICD-10 - H60.501) [employer] Other Evaluation note Note Date & Type Note Facility Evaluation note Diagnosis Atypical chest pain- Primary Other chest pain Dizziness Dizziness and giddiness documented in this encounter [employer] Phone: Evaluation note Note Date & Type Note Facility Evaluation note [facility]: History general Narrative - Reported Note Date & Type Note Facility History general Narrative - Reported Type Medical History HTN (hypertension) Surgical History fracture repair right arm [employer] Other Summary Purpose Family History No Family [...] Records FoundNo Status Records FoundNo Status Records FoundNo Status Records Found INFORMATION SOURCE (unrecogn ized section and content) DATE CREATED AUTHOR 04/18/2022 [facility] DATE CREATED AUTHOR AUTHOR'S ORGANIZ ATION [facility]/20[facility]2022 [facility] [employer] [facility] DATE CREATED AUTHOR AUTHOR'S ORGANIZ ATION 08/02/2022 [facility] DATE CREATED AUTHOR AUTHOR'S ORGANIZ ATION 06/18/2024 [facility] EPIC Reason for Visit (unrecogniz ed section and content) Reason Comments Dizziness started yesterday Chest Pain at times Shortness of Breath off and on Care Teams (unrecognized sec tion and content) Panel Lay Up Worker Relationship Specialty Start Date End Date Ivy Gomez [address] [place] [address] PCP - General Family Medicine 04/19/22 Team [...] BE BASED ON THE PRIMARY CLINICAL RECORDS. [employer] provides no warranty or guarantee of the accuracy or completeness of information in this document.
--- NOTE | 2024-06-19 17:07 | ED.GENADUL1 ---
HPI HPI - General Adult General Chief complaint: Abdominal Pain Stated complaint: FLANK PAIN Time Seen by Provider: 06/19/24 16:48 Source: patient Mode of arrival: walk-in Limitations: no limitations History of Present Illness HPI narrative: Patient is a 39-year-old male presents to the ER with concerns of left lower quadrant abdominal pain. Patient reports known history of diverticulitis that happens approximately twice a year, typically resolves with Cipro and Flagyl. He has had no prior surgery. Patient states symptoms started yesterday at 8 PM. No fever nausea or vomiting. Patient reported feeling constipated and took a laxative. He has had a few drops of bright red blood with excessive pushing. He denies any black tarry stools or mucus. He appears in no distress and drove himself to the ER. Patient does not believe he has ever had a colonoscopy. States he typically sees his family doctor in the office with symptoms but not not want to wait through the weekend. I usually watch my diet pretty close and do well. Onset (ago): day(s) (1) Radiation: Reports abdomen Severity: mild Quality: Denies burning Pain Consistency: Reports constant Relieving factors: Reports none Exacerbating factors: Reports none Treatments prior to arrival: Reports none (laxitive) Related Data Home Medications ?Medication ?Instructions ?Recorded ?Confirmed escitalopram oxalate 5 mg tablet 5 mg PO DAILY 06/19/24 06/19/24 (Lexapro) lisinopril 10 mg tablet 10 mg PO DAILY 06/19/24 06/19/24 Previous Rx's ?Medication ?Instructions ?Recorded ciprofloxacin HCl 500 mg tablet 500 mg PO BID 10 days #20 tabs 06/19/24 (Cipro) metronidazole 500 mg tablet 500 mg PO TID 10 days #30 tabs 06/19/24 ondansetron HCl 4 mg tablet 4 mg PO Q6H PRN nausea and 06/19/24 vomiting #12 tabs Allergies Allergy/AdvReac Type Severity Reaction Status Date / Time amoxicillin [From Augmentin] AdvReac Unknown Unknown Verified 06/19/24 16:47 clavulanic acid AdvReac Unknown Unknown Verified 06/19/24 16:47 [From Augmentin] Opioid HPI Opioid Management Most Recent Opioid Data: Last Pain Scale 2 06/19/24 17:42 Last ED Pain Assessment 06/19/24 17:42 Last MAR Pain Assessment 06/19/24 17:15 Review of Systems ROS Constitutional Denies: fever, chills or change in weight Ears, nose, mouth, and throat Denies: throat pain or neck pain Cardiovascular Denies: chest pain Respiratory Denies: shortness of breath or cough Gastrointestinal Reports: abdominal pain and constipation; Denies: nausea, vomiting, coffee grounds in vomit or diarrhea Genitourinary Denies: painful urination Musculoskeletal Denies: back pain, neck pain or extremity pain Integumentary/Breast Denies: rash or itching Neurological Denies: headache Psychiatric Denies: anxiety or mood swings Hematologic/Lymphatic Denies: easy bruising Exam Narrative Exam Narrative: Nurses notes and vital signs reviewed and patient is not hypoxic. General: The patient appears well and in no apparent distress. Patient is resting comfortably on cart. Skin: Warm, dry, no pallor noted. Of rash Head: Normocephalic, atraumatic Neck: Supple, trachea mid-line, no tenderness, no lymphadenopathy Eye: Pupils are equal, round and reactive to light, EOMI Ears, Nose, Mouth, and Throat: TM are clear, normal light reflex, oral mucosa is moist, no posterior oropharynx erythema or hypertrophy, uvula is mid-line Cardiovascular: Regular Rate and Rhythm Respiratory: Patient is in no distress, no accessory muscle use, lungs are clear to auscultation, no wheezing, rales or rhonchi. Chest Wall: no tenderness Back: non-tender, no CVA tenderness Musculoskeletal: normal ROM, no tenderness, no swelling GI: Normal bowel sounds, localized tenderness left lower quadrant, no masses appreciated. No rebound, guarding, or rigidity noted. Neurological: A&O x4 Psychiatric: Cooperative Constitutional Vital Signs, click to edit/add: Last Vital Signs Temp 98.3 F 06/19/24 16:48 Pulse 90 06/19/24 16:48 Resp 18 06/19/24 16:48 BP 140/93 H 06/19/24 16:48 Pulse Ox 97 06/19/24 16:48 O2 Del Method Room Air 06/19/24 16:48 Course Vital Signs Vital signs: Vital Signs Temperature 98.3 F 06/19/24 16:48 Pulse Rate 90 06/19/24 16:48 Respiratory Rate 18 06/19/24 16:48 Blood Pressure 140/93 H 06/19/24 16:48 Pulse Oximetry 97 06/19/24 16:48 Oxygen Delivery Method Room Air 06/19/24 16:48 Temperature 98.3 F 06/19/24 16:48 Pulse Rate 90 06/19/24 16:48 Respiratory Rate 18 06/19/24 16:48 Blood Pressure 140/93 H 06/19/24 16:48 Pulse Oximetry 97 06/19/24 16:48 Oxygen Delivery Method Room Air 06/19/24 16:48 Medical Decision Making MDM Narrative Medical decision making narrative: Patient denies testicle pain, reports GI upset with Augmentin. He does not drink alcohol. Agreeable to Cipro and Flagyl dose pending labs. We discussed possible imaging if labs are abnormal given patient's pain. Patient reevaluated, reports pain went from a 4 out of 10 down to a 2 out of 10. Improved with Toradol. He denies any nausea. Tolerated antibiotics well. We discussed his laboratory studies, no evidence of leukocytosis he is without fever and vital signs are stable. There is no prominent mid abdomen pulsations and patient's tenderness is in the left lower quadrant without guarding or rebound. We discussed the utility of a CT scan. Patient had a risks and benefits discussed at bedside regarding further testing and either admission or outpatient treatment with observation. Patient verbalized understanding and is agreeable to tx symptoms as PCP does not the office with medication. Pt verbalized that without the CT scan we cannot rule out a abscess formation, and potential complications including need for colostomy/abdominal surgery or if symptoms worsen . Patient agreeable to trying antibiotics as he has done in the past and if symptoms persist or worsen especially fever or worsening pain he will return to the ER for reevaluation and CT scan at that time. Patient acknowledges that he has an ongoing history of recurrent diverticulitis and typically improves with diet modification and antibiotics. The patient is to followup with primary care physician in next 2 days or to return to the emergency department should any of the signs or symptoms worsen or new symptoms develop. Patient had questions answered. The patient agrees with the following Diagnosis and Treatment plan and the patient will be discharged home. Lab Data Lab results reviewed: Yes I reviewed the patient's lab results Labs: Lab Results 06/19/24 06/19/24 Range/Units 16:53 16:56 WBC 9.7 (4.0-11.0) 10^3/uL RBC 4.91 (4.70-6.10) 10^6/uL Hgb 15.2 (14.0-18.0) g/dL Hct 44.5 (42.0-54.0) % MCV 90.6 (80.0-94.0) fL MCH 31.0 (25.9-34.0) pg MCHC 34.2 (29.9-35.2) g/dL RDW 12.3 (11.0-15.0) % Plt Count 240 (150-450) 10^3/uL MPV 10.5 (9.5-13.5) fL Neut % (Auto) 68.6 (43.0-75.0) % Lymph % (Auto) 18.3 L (20.5-60.0) % [place] % (Auto) 10.2 (1.7-12.0) % Eos % (Auto) 2.0 (0.9-7.0) % Baso % (Auto) 0.6 (0.2-2.0) % Neut # (Auto) 6.6 H (1.4-6.5) 10^3/uL Lymph # (Auto) 1.8 (1.2-3.8) 10^3/uL [place] # (Auto) 1.0 H (0.3-0.8) 10^3/uL Eos # (Auto) 0.2 (0.0-0.7) 10^3/uL Baso # (Auto) 0.1 (0.0-0.1) 10^3/uL Abs Immat Gran (auto) 0.03 (0.00-0.03) 10^3/uL Imm/Tot Granulo (auto) 0.3 (0.0-0.5) % Sodium 136 (136-145) mmol/L Potassium 3.6 (3.5-5.1) mmol/L Chloride 100 (98-107) mmol/L Carbon Dioxide 31.4 (21.0-32.0) mmol/L Anion Gap 8.2 BUN 14.0 (7.0-18.0) mg/dL Creatinine 0.93 (0.70-1.30) mg/dL Est GFR ( Amer) >60 (>=60) Est GFR (Non-Af Amer) >60 (>=60) BUN/Creatinine Ratio 15.1 Glucose 93 (74-106) mg/dL Lactate 1.1 (0.4-2.0) mmol/L Calcium 8.9 (8.5-10.1) mg/dL Total Bilirubin 0.6 (0.2-1.0) mg/dL AST 22 (15-37) U/L ALT 56 (16-63) U/L Alkaline Phosphatase 104 (46-116) U/L Total Protein 7.3 (6.4-8.2) g/dL Albumin 3.9 (3.4-5.0) g/dL Globulin 3.4 g/dL Albumin/Globulin Ratio 1.1 Lipase 26.0 (16.0-77.0) U/L Urine Color Lt. yellow (YELLOW) Urine Clarity Clear (CLEAR) Urine pH 6.0 (5.0-9.0) Ur Specific [place] 1.025 (1.005-1.025) Urine Protein Negative (NEG/TRACE) mg/dL Urine Glucose (UA) Negative (NEGATIVE) mg/dL Urine Ketones Negative (NEGATIVE) mg/dL Urine Occult Blood Negative (NEGATIVE) Urine Nitrite Negative (NEGATIVE) Urine Bilirubin Negative (NEGATIVE) Urine Urobilinogen 0.2 (0.2-1.0) EU/dL Ur Leukocyte Esterase Trace A (NEGATIVE) Discharge Plan Discharge Stand Alone Forms: Portal Instructions Chief Complaint: Abdominal Pain Clinical Impression: Diverticulitis, Abdominal pain Patient Disposition: Home, Self-Care Time of Disposition Decision: 18:00 Condition: Good Prescriptions / Home Meds: New ciprofloxacin HCl [Cipro] 500 mg tablet 500 mg PO BID 10 Days Qty: 20 0RF metronidazole 500 mg tablet 500 mg PO TID 10 Days Qty: 30 0RF ondansetron HCl 4 mg tablet 4 mg PO Q6H PRN (Reason: nausea and vomiting) Qty: 12 0RF No Action lisinopril 10 mg tablet 10 mg PO DAILY escitalopram oxalate [Lexapro] 5 mg tablet 5 mg PO DAILY Print Language: Yoruba Instructions: Diverticulitis (ED), Diverticulitis Diet (ED) Referrals: IVY GILES [Primary Care Provider] - As soon as possible Jag Tompkins MD [Physician] - As needed
[2024-06-19] MEDS: CIPROFLOXACIN HCL 500 MG TABLET PO (17:14)
[2024-06-19] MEDS: 0.9 % SODIUM CHLORIDE 1,000 ML 999 ML IV (17:14)
[2024-06-19] MEDS: KETOROLAC TROMETHAMINE 30 MG/ML VIAL IVP (17:15)
[2024-06-19] MEDS: METRONIDAZOLE/SODIUM CHLORIDE 500 MG/100 ML PREMIX 100 MG IV (17:16)
[2024-06-19 17:23] LABS: Basophils Absolute Auto 0.1 10^3/uL (0.0-0.1); Basophils Percent Auto 0.6 % (0.2-2.0); Eosinophils Absolute Auto 0.2 10^3/uL (0.0-0.7); Hematocrit 44.5 % (42.0-54.0); Hemoglobin 15.2 g/dL (14.0-18.0); Immature Granulocytes Abs Auto 0.03 10^3/uL (0.00-0.03); Immature Granulocytes Pct Auto 0.3 % (0.0-0.5); Lymphocytes Absolute Auto 1.8 10^3/uL (1.2-3.8); Lymphocytes Percent Auto 18.3 % (20.5-60.0); Mean Corpuscular HGB Conc 34.2 g/dL (29.9-35.2); Mean Corpuscular Volume 90.6 fL (80.0-94.0); Mean Platelet Volume 10.5 fL (9.5-13.5); Monocytes Percent Auto 10.2 % (1.7-12.0); Neutrophils Absolute Auto 6.6 10^3/uL (1.4-6.5); Neutrophils Percent Auto 68.6 % (43.0-75.0); Platelet Count 240 10^3/uL (150-450); Red Blood Count 4.91 10^6/uL (4.70-6.10); Red Cell Distribution Width 12.3 % (11.0-15.0); White Blood Count 9.7 10^3/uL (4.0-11.0)
[2024-06-19 17:25] LABS: Bilirubin Urine NEGATIVE (NEGATIVE); Blood Urine NEGATIVE (NEGATIVE); Clarity Urine CLEAR (CLEAR); Color Urine LT. YELLOW (YELLOW); Glucose Urine UA NEGATIVE (NEGATIVE); Ketones Urine NEGATIVE (NEGATIVE); Leukocyte Esterase Urine TRACE (NEGATIVE); Nitrite Urine NEGATIVE (NEGATIVE); Protein Urine NEGATIVE (NEG/TRACE); Specific Gravity Urine 1.025 (1.005-1.025); Urobilinogen Urine 0.2 EU/dL (0.2-1.0)
[2024-06-19 17:39] LABS: Alanine Aminotransferase 56 U/L (16-63); Albumin Globulin Ratio 1.1; Albumin Level 3.9 g/dL (3.4-5.0); Alkaline Phosphatase 104 U/L (46-116); Anion Gap 8.2; Aspartate Amino Transferase 22 U/L (15-37); BUN Creatinine Ratio 15.1; Bilirubin Total 0.6 mg/dL (0.2-1.0); Calcium 8.9 mg/dL (8.5-10.1); Carbon Dioxide 31.4 mmol/L (21.0-32.0); Chloride 100 mmol/L (98-107); Estimated GFR (African America >60 (>=60); Estimated GFR (Non-African Ame >60 (>=60); Globulin 3.4 g/dL; Glucose 93 mg/dL (74-106); Potassium 3.6 mmol/L (3.5-5.1); Sodium 136 mmol/L (136-145); Total Protein 7.3 g/dL (6.4-8.2)
[2024-06-19 17:41] LABS: Urine Microscopic Indicated YES
[2024-06-19 17:42] LABS: Lactate/Lactic Acid 1.1 mmol/L (0.4-2.0)
[2024-06-19 17:57] LABS: Bacteria Urine NONE SEEN #/HPF (NONE SEEN); Cast Seen? NONE SEEN #/LPF (NONE SEEN); Crystals Seen? None Seen #/HPF (None Seen); Mucus Urine NONE SEEN (NONE SEEN); RBC Urine 0-2 #/HPF (0-2); Squamous Epithelial Cell Urine NONE SEEN #/LPF (NONE/RARE); WBC Urine 0-2 #/HPF (NONE SEEN)
[2024-06-19 17:58] LABS: Urine Culture Indicated NO
== END 2024-06-19 18:21 | disposition home or self-care (01) ==
PROVIDERS: Personal Emergency Response Attendant; Emergency Provider Student in an Organized Health Care Education/Training Program; PCP Family Medicine
DX: K57.92 Diverticulitis of intestine, part unspecified, without perforation or abscess without bleeding (principal); R10.9 Unspecified abdominal pain
CPT/HCPCS: 36415; 80053; 81001; 83605; 83690; 85025; 96365; 96375; 99284; J1836; J1885

== ENCOUNTER 2024-07-18 09:08 | Outpatient (OUT) | payer MEDICAID, SELFPAY ==
--- NOTE | 2024-07-18 09:12 | CT_ITS ---
The [address] [address] Patient Name: REANNA HOOKS MRN: [id number] date: 1985 Sex: M Assigned Patient Location: CT Current Patient Location: Accession/Order Number: [id number] Exam Date: 07/18/2024 10:22 Report Date: 07/19/2024 09:56 At the request of: RAÚL ELMORE Procedure: CT abdomen pelvis w con PROCEDURE: CT abdomen pelvis w con CLINICAL INDICATION: 39 years Male Left Lower Quadrant Pain COMPARISONS: None available. TECHNIQUE: CT imaging of the abdomen and pelvis was performed following oral and intravenous contrast administration. Coronal and sagittal reformations were created. Individualized dose optimization technique was used for the procedure performed. FINDINGS: Limited visualization of lung bases is unremarkable. There is no pleural or pericardial effusion. There is fatty infiltration of the liver. Gallbladder, spleen, pancreas, adrenal glands and kidneys are normal. Bowel loops are normal in course and caliber, there is no obstruction or free air. Appendix is normal. There is moderate diverticulosis of the descending and sigmoid colon. There is no ascites or adenopathy. There is a fat-containing left inguinal hernia. Visualized osseous structures are unremarkable. CT/CT abdomen pelvis w con IMPRESSION: 1. No acute abnormality within the upper abdomen and pelvis. 2. Moderate diverticulosis of the descending and sigmoid colon. 3. Fatty liver. Electronically authenticated by: MEGAN PATTON Date: 07/19/2024 09:56
--- OUTSIDE RECORDS SUMMARY | 2024-07-18 09:30 | XMS_ITS | CCD ---
Author Organization [facility] Inform ion Partnership [facility] Care Team Providers Care Service Correspondent Name Role Phone COLEMAN LIU Admitting Unavailable [...] VELARDE Attending Unavailable JOAQUINA BONILLA Consulting Unavailable IVAN MAY Consulting Unavailable TISHA, DR IVY Oates Primary Care Unavailable YAROSOLGA Gee Consulting Unavailable SCOTTY OLIVERA Admitting Unavailable SCOTTY OLIVERA Attending Unavailable CLIFTON GONZALEZ Consulting Unavailable Ivy Gomez Primary Care Provider [phone] IVY GOMEZ Primary Care Unavailable Luana Simons Unavailable DO Rory Moya Attending Provider MD Ivy Gomez Primary Care Provider KRISTY GROSSMAN Attending Unavailable SLAVA Grossman-FOOD PRODUCT INSPECTOR-Holley Santizo Attending Provider DO Travis Junior Primary Care Provider Kristy Grossman Admitting Unavailable Kristy Grossman Attending Unavailable Travis Junior Primary Care Unavailable Allergies Allergy Classification Reported Allergen(s) Allergy Type Date of Onset Reaction(s) Facility (1 source) Amoxicillin / Clavulanate Drug Allergy [facility] Repository (1 source) Amoxicillin-Pot Clavulanate Propensity to adverse reactions to drug 2 Anaphylaxis [facility] (1 source) Amoxicillin / Clavulanate Drug Allergy throat swelling [facility] Other (1 source) Amoxicillin Drug Allergy 1 [facility] Repository (1 source) Clavulanate Drug Allergy 1 [facility] Repository (1 source) Unable to Assess Drug allergy (disorder) 2 [facility] Repository Medications Current Medications Medication Drug Class(es) [...] / neomycin 3.5 mg/ml / polymyxin b 35942 unt/ml otic suspension (1 source) Aminoglycoside Antibacterial, Polymyxin-class Antibacterial, Corticosteroid Start: 09-01-2021 Neomycin-Polymyx in-HC 3.5-96519-0 3 drops right ear Three times a [...] 07-22-2021 Episodic Other aftercare (1 source) Other local company intermodal truck driver (current) drug therapy; Translations: [OTH [facility] CURRENT DRUG THERAPY] Onset: 04-17-2022 Episodic Substance-related disorders (1 source) Nicotine dependence, [...] Name Value Interpretation Reference Range Facility MR angio MR brain wo/w conon 07-14-2024 MR angio MR brain wo/w con [facility] [place] [address] MRI Report Signed Patient: Doroteo Sharif MR#: [id number] : 1985 Acct:[id number] Age/Sex: 39 / M ADM Date: 07/14/24 Loc: MR Room: Type: [facility] Attending Dr: Kristy LYONS Copies to: ELOY Reich Ordering Provider: FIDELINA ReichFOOD PRODUCT INSPECTOR-C Date of Service: 07/14/24 MR/MR angio MR brain wo/w con: R47.01 MR angio MR brain wo/w con 07/14/2024 2:13 PM SIGN OF SYMPTOMS: Migraine headaches PROTOCOL: Multiplanar multisequence MR images of the brain were obtained with and without IV contrast. Images include noncontrast 3-D jeve-ho-bgassq MRA with 3-D reconstructions CONTRAST: 20 mL of intravenous ProHance COMPARISON: 07/21/2022 FINDINGS: MRI BRAIN WITHOUT CONTRAST: Extra axial spaces: Age appropriate. Hemorrhage: None. Ventricular system: Within normal limits. Basal cisterns: Within normal limits and not effaced. Cerebral parenchyma: Focal encephalomalacia is noted in the left frontal lobe with accompanying hemosiderin staining suggesting a previous hemorrhage. This is of uncertain etiology but is new compared to the prior MRI. Midline shift: None.. Cerebellum: Within normal limits. Brainstem: Within normal limits. OTHER: Calvarium: Normal marrow signal. Vascular system: Satisfactory flow voids within the anterior and posterior circulation. Visualized Paranasal sinuses: Within normal limits. Visualized Orbits: Within normal limits. Visualized upper cervical spine: Within normal limits. Sella and skull base: Within normal limits. MRA BRAIN: The superior cerebellar arteries, posterior inferior cerebellar arteries, and the basilar artery are within normal limits. The posterior cerebral arteries are unremarkable. The intracranial segments of the internal carotid arteries are within normal limits. There are normal anterior and middle cerebral arteries. Anterior communicating artery is patent. Posterior communicating arteries are present. The deep venous system and dural venous systems appear to be patent. MR/MR angio MR brain wo/w con IMPRESSION: No focal stenosis, occlusion, or aneurysmal dilatation. Focal encephalomalacia is noted in the left frontal lobe with accompanying hemosiderin staining suggesting a previous hemorrhage. This is of uncertain etiology but is new compared to the prior MRI. No mass or abnormal postcontrast enhancement. Impression dictated by: Cornelius Bernal M.D.07/14/2024 5:22 PM Dictation Location: [place] [address] Transcribed By: VIRIDIANA 07/14/24 1722 Dictated By: Cornelius Bernal II, MD 07/14/24 1716 Signed By: 07/14/24 1722 Normal [facility] MR angio neck wo conon 07-14 MR angio neck wo con [facility] [place] [address] [place], [place] [id number] MRI Report Signed Patient: Doroteo Sharif MR#: [id number] : 1985 Acct:[id number] Age/Sex: 39 / M ADM Date: 07/14/24 Loc: MR Room: Type: [facility] Attending Dr: Kristy LYONS Copies to: ELOY Reich Ordering Provider: ELOY Reich Date of Service: 07/14/24 MR/MR angio neck wo con: R47.01 MR angio neck wo con 07/14/2024 2:13 PM SIGNS AND SYMPTOMS: Migraine headaches PROTOCOL: Axial 3-D ywgs-by-cbhwmy MRA of the neck without contrast. 3-D reconstructions were performed. COMPARISON: None FINDINGS: The vertebral arteries are normal in course and caliber up to the skull base. The common and internal carotid arteries are normal in course and caliber up to the skull base. The accompanying soft tissues show no obvious abnormality. MR/MR angio neck wo con IMPRESSION: No evidence of significant stenosis, occlusion, or aneurysm dilatation. Impression dictated by: Cornelius Bernal M.D.07/14/2024 5:07 PM Dictation Location: [place] [address] Transcribed By: [facility] 07/14/24 170 Dictated By: Cornelius Bernal II, MD 07/14/24 170 Signed By: 07/14/24 170 Normal [facility] Troponinon 04-19-2022 Troponin, High Sens <6 Normal 0-22 [facility] Comment on above: Result Comment: High Sensitivity Troponin values cannot be compared with other Troponin methodologies. Patients with high levels of Biotin oral intake (i.e >5mg/day) may have falsely decreased Troponin levels. Samples collected within 8 hours of biotin intake may require additional information for diagnosis. Performed By: #### T MICHELL #### Lab [address] [place] [address] Enterprise Solutions Architect: Bonilla Wilson MD Troponin, High Sensitivity <6 0 - 22 ng/L [facility] [employer] Comment on above: High Sensitivity Troponin values cannot be compared with other Troponin methodologies. Patients with high levels of Biotin oral intake (i.e >5mg/day) may have falsely decreased Troponin levels. Samples collected within 8 hours of biotin intake may require additional information for diagnosis. [facility] [employer] XR CHEST PORTABLEon 04-19-20 XR CHEST PORTABLE [...] Eduardo Mcclure MD 04/19/22 Final result Normal [facility] No acute process. [facility] EXAMINATION: ONE XRAY VIEW OF THE CHEST 04/19/2022 4:25 pm COMPARISON: None. HISTORY: ORDERING SYSTEM PROVIDED HISTORY: Intermittent chest pain TECHNOLOGIST PROVIDED HISTORY: Intermittent chest pain FINDINGS: The lungs are without acute focal process. There is no effusion or pneumothorax. The cardiomediastinal silhouette is without acute process. The osseous structures are without acute process. [facility] Eduardo Mcclure MD - 04/19/2022 [...] without acute process. IMPRESSION: No acute process. [facility] [employer] Work Phone: Radiology Study observation (narrative) [facility] [employer] Work Phone: XR CHEST PORTABLEOrdered By: Eduardo Mcclure on 04-19-2022 [facility] [employer] Work Phone: CBC AUTO DIFFon 04-15-2022 BASO # 0.1 103/ul Normal 0.0-0.1 [facility] Comment on above: Performed By: #### C BC ####[facility] [address] [place] [address]Dr. Chioma Surendra Basophils/100 WBC (Bld) 0.7 % Normal 0.2-2.0 [facility] Comment on above: Performed By: #### C BC ####[facility] [address] [place], [place] [address]Dr. Chioma Surendra EO # 0.2 103/ul Normal 0.0-0.7 [facility] [place] [facility] Comment on above: Performed By: #### C BC ####[facility] [address] [place], [place] [address]Dr. Chioma Agosto Eosinophils/100 WBC (Bld) 1.8 % Normal 0.9-7.0 [facility] [place] [facility] Comment on above: Performed By: #### C BC ####[facility] [address] [place], [place] [address]Dr. Jeaniejason Agosto Erythrocyte distribution width (RBC) [Ratio] 13.0 % Normal 11.0-15.0 [facility] [place] [facility] Comment on above: Performed By: #### C BC ####[facility] [address] [place], [place] [id number]. Chioma Agosto Hematocrit (Bld) [Volume fraction] 44.9 % Normal 42.0-54.0 [facility] Comment on above: Performed By: #### C BC ####[facility] [address] [place], [place] [address]Dr. Chioma Agosto Hemoglobin (Bld) [Mass/Vol] 14.9 g/dL Normal 14.0-18.0 [facility] [place] [facility] Comment on above: Performed By: #### C BC ####[facility] [address] [place], [place] [address]Dr. Chioma Agosto IG # 0.03 10e3/ul Normal 0.00-0.03 [facility] [place] [facility] Comment on above: Performed By: #### C BC ####[facility] [address] [place] [address]Dr. Chioma Agosto IG % 0.4 % Normal 0.0-0.5 [facility] [place] [facility] Comment on above: Performed By: #### C BC ####[facility] [address] [place] [address]Dr. Chioma Agosto LYMPH # 2.6 103/ul Normal 1.2-3.8 [facility] [place] [facility] Comment on above: Performed By: #### C BC ####[facility] [address] [place] [address]Dr. Chioam Surendra Lymphocytes/100 WBC (Bld) 31.8 % Normal 20.5-60.0 [facility] [place] [facility] Comment on above: Performed By: #### C BC ####[facility] [address] [place] [address]Dr. Chioma Surendra MANUAL DIFF REQ NO Normal [facility] Comment on above: Performed By: #### C BC ####[facility] [address] [place] [address]Dr. Chioma Agosto MCH (RBC) [Entitic mass] 31.8 pg Normal 25.9-34.0 [facility] [place] [facility] Comment on above: Performed By: #### C BC ####[facility] [address] [place] [address]Dr. Chioma Agosto MCHC (RBC) [Mass/Vol] 33.2 g/dL Normal 29.9-35.2 [facility] [place] [facility] Comment on above: Performed By: #### C BC ####[facility] [address] [place] [address]Dr. Chioma Agosto MCV (RBC) [Entitic vol] 95.7 fL Critically high 80.0-94.0 [facility] [place] [facility] Comment on above: Performed By: #### C BC ####[facility] [address] [place], [place] [address]Dr. Chioma Surendra MONO # 0.6 103/ul Normal 0.3-0.8 [facility] [place] [facility] Comment on above: Performed By: #### C BC ####[facility] [address] [place] [address]Dr. Chioma Agosto Monocytes/100 WBC (Bld) 7.3 % Normal 1.7-12.0 [facility] [place] [facility] Comment on above: Performed By: #### C BC ####[facility] [address] [place] [address]Dr. Chioma Agosto NEUT # 4.8 103/ul Normal 1.4-6.5 [facility] [place] [facility] Comment on above: Performed By: #### C BC ####[facility] [address] [place] [address]Dr. Chioma Agosto Neutrophils/100 WBC (Bld) 58.0 % Normal 43.0-75.0 [facility] [place] [facility] Comment on above: Performed By: #### C BC ####[facility] [address] [place] [address]Dr. Chioma Agosto Platelet mean volume (Bld) [Entitic vol] 10.7 fL Normal 9.5-13.5 [facility] [place] [facility] Comment on above: Performed By: #### C BC ####[facility] [address] [place] [address]Dr. Chioma Agosto PLT 213 103/ul Normal 150-450 [facility] [place] [facility] Comment on above: Performed By: #### C BC ####[facility] [address] [place] [address]Dr. Chioma Agosto RBC 4.69 106/ul Critically low 4.70-6.10 [facility] Comment on above: Performed By: #### C BC ####[facility] [address] [place] [address]Dr. Chioma Agosto WBC 8.2 103/ul Normal 4.0-11.0 [facility] [place] [facility] Comment on above: Performed By: #### C BC ####[facility] [address] [place] [address]Dr. Chioma Agosto LIPASEon 04-15-2022 Lipase [Catalytic activity/Vol] 47.0 U/L Critically low 73.0-393.0 [facility] [place] [facility] Comment on above: Performed By: #### C MP, HSTROPN, LIPA, MG #### [facility] [address] [place] [address] Dr. Chioma Agosto MAGNESIUMon 04-15-2022 Magnesium [Mass/Vol] 2.0 mg/dL Normal 1.8-2.4 [facility] Comment on above: Performed By: #### C MP, HSTROPN, LIPA, MG #### [facility] [address] [place] [address] Dr. Chioma Agosto PROF 14(COMP METB)on 022 Albumin [Mass/Vol] 4.2 g/dL Normal 3.4-5.0 [facility] Comment on above: Performed By: #### C MP, HSTROPN, LIPA, MG #### [facility] [address] [place] [address] Dr. Chioma Agosto Albumin/Globulin [Mass ratio] 1.4 {ratio} Normal [facility] Comment on above: Performed By: #### C MP, HSTROPN, LIPA, MG #### [facility] [address] [place] [address] Dr. Chioma Agosto ALP [Catalytic activity/Vol] 82 U/L Normal 46-116 [facility] Comment on above: Performed By: #### C MP, HSTROPN, LIPA, MG #### [facility] [address] [place] [address] Dr. Chioma Agosto ALT [Catalytic activity/Vol] 31 U/L Normal 16-63 [facility] Comment on above: Performed By: #### C MP, HSTROPN, LIPA, MG #### [facility] [address] [place] [address] Dr. Chioma Agosto Anion gap [Moles/Vol] 14.1 mmol/L Normal [facility] Comment on above: Performed By: #### C MP, HSTROPN, LIPA, MG #### [facility] [address] [place] [address] Dr. Chioma Agosto AST [Catalytic activity/Vol] 20 U/L Normal 15-37 [facility] Comment on above: Performed By: #### C MP, HSTROPN, LIPA, MG #### [facility] [address] [place] [address] [address] Chioma Agosto Bilirubin [Mass/Vol] 0.6 mg/dL Normal 0.2-1.0 [facility] Comment on above: Performed By: #### C MP, HSTROPN, LIPA, MG #### [facility] [address] [place] [address] [address] Chioma Agosto Calcium [Mass/Vol] 9.3 mg/dL Normal 8.5-10.1 [facility] Comment on above: Performed By: #### C MP, HSTROPN, LIPA, MG #### [facility] [address] [place] [address] Dr. Chioma Agosto Chloride [Moles/Vol] 105 mmol/L Normal 98-107 [facility] Comment on above: Performed By: #### C MP, HSTROPN, LIPA, MG #### [facility] [address] [place] [address] [address] Chioma Agosto CO2 [Moles/Vol] 25.6 mmol/L Normal 21.0-32.0 [facility] Comment on above: Performed By: #### C MP, HSTROPN, LIPA, MG #### [facility] [address] [place] [address] Dr. Chioma Agosto Creatinine [Mass/Vol] 0.87 mg/dL Normal 0.70-1.30 [facility] Comment on above: Performed By: #### C MP, HSTROPN, LIPA, MG #### [facility] [address] [place] [address] Dr. Chioma Agosto EGFR-AF MONEGASQUE >60 Normal >=60 [facility] Comment on above: Performed By: #### C MP, HSTROPN, LIPA, MG #### [facility] [address] [place] [address] Dr. Chioma Agosto EGFR-NON AF MONEGASQUE >60 Normal >=60 [facility] Comment on above: Performed By: #### C MP, HSTROPN, LIPA, MG #### [facility] [address] [place] [address] Dr. Chioma Agosto Globulin (S) [Mass/Vol] 2.9 g/dL Normal [facility] Comment on above: Performed By: #### C MP, HSTROPN, LIPA, MG #### [facility] [address] [place] [address] Dr. Chioma Agosto Glucose [Mass/Vol] 123 mg/dL Critically high 74-106 [facility] Comment on above: Performed By: #### C MP, HSTROPN, LIPA, MG #### [facility] [address] [place] [address] Dr. Chioma Agosto Potassium [Moles/Vol] 3.7 mmol/L Normal 3.5-5.1 [facility] Comment on above: Performed By: #### C MP, HSTROPN, LIPA, MG #### [facility] [address] [place] [address] Dr. Chioma Agosto Protein [Mass/Vol] 7.1 g/dL Normal 6.4-8.2 [facility] Comment on above: Performed By: #### C MP, HSTROPN, LIPA, MG #### [facility] [address] [place] [address] Dr. Chioma Agosto Sodium [Moles/Vol] 141 mmol/L Normal 136-145 [facility] Comment on above: Performed By: #### C MP, HSTROPN, LIPA, MG #### [facility] [address] [place] [address] Dr. Chioma Agosto Urea nitrogen [Mass/Vol] 14.0 mg/dL Normal 7.0-18.0 [facility] Comment on above: Performed By: #### C MP, HSTROPN, LIPA, MG #### [facility] [address] [place] [address] Dr. Chioma Agosto Urea nitrogen/Creatinine [Mass ratio] 16.1 mg/mg Normal [facility] Comment on above: Performed By: #### C MP, HSTROPN, LIPA, MG #### [facility] [address] [place] [address] [address] Chioma Agosto TROPONIN, HIGH SENSITIVITYon 04-15-2022 HSTROP 4.6 pg/mL Normal 4.0-76.1 [facility] Comment on above: Result Comment: CUT- OFF POINTS HAVE BEEN ESTABLISHED BASED ON THE FOURTH UNIVERSAL DEFINITIONS OF MYOCARDIAL INFARCTION. THE UPPER REFERENCE LIMIT (URL) OF TROPONIN, DEFINED THE 99TH PERCENTILE OF cTnI DISTRIBUTION IN A REFERENCE POPULATION, HAS BEEN CONFIRMED THE DECISION THRESHOLD FOR LA DIAGNOSIS. Performed By: #### H STROPN #### [facility] [address] [place] [address] [address] Chioma Agosto HSTROP 4.8 pg/mL Normal 4.0-76.1 [facility] Comment on above: Result Comment: CUT- OFF POINTS HAVE BEEN ESTABLISHED BASED ON THE FOURTH UNIVERSAL DEFINITIONS OF MYOCARDIAL INFARCTION. THE UPPER REFERENCE LIMIT (URL) OF TROPONIN, DEFINED THE 99TH PERCENTILE OF cTnI DISTRIBUTION IN A REFERENCE POPULATION, HAS BEEN CONFIRMED THE DECISION THRESHOLD FOR LA DIAGNOSIS. Performed By: #### C MP, HSTROPN, LIPA, MG #### [facility] [address] [place] [address] Dr. Chioma Agosto XR CHEST 1 Von [...] CLIFTON GONZALEZ Date: 2022-04-15 19:29 Normal [facility] CBC AUTO DIFFon 03-19-2022 BASO # 0.1 103/ul Normal 0.0-0.1 [facility] Comment on above: Performed By: #### C BC #### [facility] [address] [place] [address] [address] Chioma Agosto Basophils/100 WBC (Bld) 0.9 % Normal 0.2-2.0 [facility] Comment on above: Performed By: #### C BC #### [facility] [address] [place] [address] Dr. Chioma Agosto EO # 0.2 103/ul Normal 0.0-0.7 [facility] Comment on above: Performed By: #### C BC #### [facility] [address] [place] [address] Dr. Chioma Aogsto Eosinophils/100 WBC (Bld) 4.1 % Normal 0.9-7.0 [facility] Comment on above: Performed By: #### C BC #### [facility] [address] [place] [address] Dr. Chioma Agosto Erythrocyte distribution width (RBC) [Ratio] 13.1 % Normal 11.0-15.0 [facility] Comment on above: Performed By: #### C BC #### [facility] [address] [place] [address] Dr. Chioma Agosto Hematocrit (Bld) [Volume fraction] 42.7 % Normal 42.0-54.0 [facility] Comment on above: Performed By: #### C BC #### [facility] [address] [place] [address] Dr. Chioma Agosto Hemoglobin (Bld) [Mass/Vol] 14.6 g/dL Normal 14.0-18.0 [facility] Comment on above: Performed By: #### C BC #### [facility] [address] [place] [address] Dr. Chioma Agosto IG # 0.01 10e3/ul Normal 0.00-0.03 [facility] Comment on above: Performed By: #### C BC #### [facility] [address] [place] [address] Dr. Chioma Agosto IG % 0.2 % Normal 0.0-0.5 [facility] Comment on above: Performed By: #### C BC #### [facility] [address] [place] [address] Dr. Chioma Agosto LYMPH # 2.0 103/ul Normal 1.2-3.8 [facility] Comment on above: Performed By: #### C BC #### [facility] [address] [place] [address] Dr. Chioma Agosto Lymphocytes/100 WBC (Bld) 34.5 % Normal 20.5-60.0 [facility] Comment on above: Performed By: #### C BC #### [facility] [address] [place] [address] Dr. Chioma Agosto MANUAL DIFF REQ NO Normal [facility] Comment on above: Performed By: #### C BC #### [facility] [address] [place] [address] Dr. Chioma Agosto MCH (RBC) [Entitic mass] 31.9 pg Normal 25.9-34.0 [facility] Comment on above: Performed By: #### C BC #### [facility] [address] [place] [address] Dr. Chioma Agosto MCHC (RBC) [Mass/Vol] 34.2 g/dL Normal 29.9-35.2 [facility] Comment on above: Performed By: #### C BC #### [facility] [address] [place] [address] Dr. Chioma Agosto MCV (RBC) [Entitic vol] 93.2 fL Normal 80.0-94.0 [facility] Comment on above: Performed By: #### C BC #### [facility] [address] [place] [address] Dr. Chioma Agosto MONO # 0.5 103/ul Normal 0.3-0.8 [facility] Comment on above: Performed By: #### C BC #### [facility] [address] [place] [address] Dr. Chioma Agosto Monocytes/100 WBC (Bld) 8.9 % Normal 1.7-12.0 [facility] Comment on above: Performed By: #### C BC #### [facility] [address] [place] [address] Dr. Chioma Agosto NEUT # 3.0 103/ul Normal 1.4-6.5 [facility] Comment on above: Performed By: #### C BC #### [facility] [address] [place] [address] [address] Chioma Agosto Neutrophils/100 WBC (Bld) 51.4 % Normal 43.0-75.0 [facility] [facility] Comment on above: Performed By: #### C BC #### [facility] [address] [address] [address] Chioma Agosto Platelet mean volume (Bld) [Entitic vol] 10.2 fL Normal 9.5-13.5 [facility] Comment on above: Performed By: #### C BC #### [facility] [address] [address] [address] Chioma Agosto PLT 191 103/ul Normal 150-450 [facility] Comment on above: Performed By: #### C BC #### [facility] [address] [address] [address] Chioma Agosto RBC 4.58 106/ul Critically low 4.70-6.10 [facility] Comment on above: Performed By: #### C BC #### [facility] [address] [address] [address] Chioma Agosto WBC 5.8 103/ul Normal 4.0-11.0 [facility] Comment on above: Performed By: #### C BC #### [facility] [address] [address] [address] Chioma Agosto PROF 14(COMP METB)on 022 Albumin [Mass/Vol] 3.9 g/dL Normal 3.4-5.0 [facility] Comment on above: Performed By: #### H ANNAMARIA, CMP ####[facility] [address] [id number]. Chioma Agosto Albumin/Globulin [Mass ratio] 1.3 {ratio} Normal [facility] Comment on above: Performed By: #### H ANNAMARIA, CMP ####[facility] [address] [address]Dr. Chioma Agosto ALP [Catalytic activity/Vol] 101 U/L Normal 46-116 [facility] Comment on above: Performed By: #### H ANNAMARIA, CMP ####[facility] [address] [address]Dr. Chioma Agosto ALT [Catalytic activity/Vol] 38 U/L Normal 16-63 [facility] Comment on above: Performed By: #### H ANNAMARIA, CMP ####[facility] Ve[address] [place], [place] [address]Dr. Chioma Agosto Anion gap [Moles/Vol] 11.4 mmol/L Normal [facility] Comment on above: Performed By: #### H ANNAMARIA, CMP ####[facility] Ty[address] [place], [place] [address]Dr. Chioma Agosto AST [Catalytic activity/Vol] 17 U/L Normal 15-37 [facility] Comment on above: Performed By: #### H ANNAMARIA, CMP ####[facility] X[address] [place], [place] [address]Dr. Chioma Agosto Bilirubin [Mass/Vol] 0.2 mg/dL Normal 0.2-1.0 [facility] Comment on above: Performed By: #### Marlen YIN, CMP ####[facility] [address] [place], [place] [address]Dr. Chioma Agosto Calcium [Mass/Vol] 8.9 mg/dL Normal 8.5-10.1 [facility] Comment on above: Performed By: #### H ANNAMARIA, CMP ####[facility] [address] [place], [place] [address]Dr. Chioma Agosto Chloride [Moles/Vol] 108 mmol/L Critically high 98-107 [facility] [place] [facility] Comment on above: Performed By: #### H ANNAMARIA, CMP ####[facility] [address] [place], [place] [address]Dr. Chioma Agosto CO2 [Moles/Vol] 25.6 mmol/L Normal 21.0-32.0 The [facility] Comment on above: Performed By: #### H ANNAMARIA, CMP ####[facility] E[address] [place], [place] [address]Dr. Chioma Agosto Creatinine [Mass/Vol] 0.77 mg/dL Normal 0.70-1.30 [facility] Comment on above: Performed By: #### H STROPN, CMP ####[facility] [address] [address]Dr. Chioma Agosto EGFR-AF MONEGASQUE >60 Normal >=60 The [facility] Comment on above: Performed By: #### H STROPN, CMP ####[facility] [address] [address]Dr. Chioma Agosto EGFR-NON AF MONEGASQUE >60 Normal >=60 [facility] Comment on above: Performed By: #### H STROPN, CMP ####[facility] [address] [address]Dr. Chioma Agosto Globulin (S) [Mass/Vol] 2.9 g/dL Normal [facility] Comment on above: Performed By: #### H STROPN, CMP ####[facility] [address] [address]Dr. Chioma Agosto Glucose [Mass/Vol] 98 mg/dL Normal 74-106 [facility] Comment on above: Performed By: #### H STROPN, CMP ####[facility] L[address] [place], [place] [address]Dr. Chioma Agosto Potassium [Moles/Vol] 4.0 mmol/L Normal 3.5-5.1 [facility] [place] [facility] Comment on above: Performed By: #### H STROPN, CMP ####[facility] [address] [place], [place] [address]Dr. Chioma Agosto Protein [Mass/Vol] 6.8 g/dL Normal 6.4-8.2 The [facility] Comment on above: Performed By: #### H STROPN, CMP ####[facility] [address] [address]Dr. Chioma Agosto Sodium [Moles/Vol] 141 mmol/L Normal 136-145 The [facility] Comment on above: Performed By: #### H STROPN, CMP ####[facility] [address] [address]Dr. Chioma Agosto Urea nitrogen [Mass/Vol] 16.0 mg/dL Normal 7.0-18.0 [facility] [place] [facility] Comment on above: Performed By: #### H ANNAMARIA, CMP ####[facility] [address] [address]Dr. Chioma Agosto Urea nitrogen/Creatinine [Mass ratio] 20.8 mg/mg Normal [facility] Comment on above: Performed By: #### H ANNAMARIA, CMP ####[facility] [address] [address]Dr. Chioma Agosto TROPONIN, HIGH SENSITIVITYon 03-19-2022 HSTROP <4.0 Normal 4.0-76.1 [facility] [place] [facility] Comment on above: Result Comment: CUT- OFF POINTS HAVE BEEN ESTABLISHED BASED ON THE FOURTH UNIVERSAL DEFINITIONS OF MYOCARDIAL INFARCTION. THE UPPER REFERENCE LIMIT (URL) OF TROPONIN, DEFINED THE 99TH PERCENTILE OF cTnI DISTRIBUTION IN A REFERENCE POPULATION, HAS BEEN CONFIRMED THE DECISION THRESHOLD FOR LA DIAGNOSIS. Performed By: #### H WYATT YIN #### [facility] [address] [address] [address] Chioma Agosto XR CHEST 1 Von [...] IVAN MAY Date: 2022-03-19 21:07 Normal [facility] BNPon 09-12-2021 Natriuretic peptide B (Bld) [Mass/Vol] 10.0 pg/mL Normal <=450.0 [facility] [place] [facility] Comment on above: Performed By: #### C MP, BNP, HSTROPN ####[facility] [address] [address]Dr. Chioma Agosto CBC AUTO DIFFon 09-12-2021 BASO # 0.1 103/ul Normal 0.0-0.1 [facility] Comment on above: Performed By: #### C BC ####[facility] [address] [address]Dr. Chioma Agosto Basophils/100 WBC (Bld) 0.7 % Normal 0.2-2.0 [facility] Comment on above: Performed By: #### C BC ####[facility] Tud[address] [place], [place] [address]Dr. Chioma Agosto EO # 0.3 103/ul Normal 0.0-0.7 [facility] [place] [facility] Comment on above: Performed By: #### C BC ####[facility] B[address] [place], [place] [address]Dr. Chioma Agosto Eosinophils/100 WBC (Bld) 3.4 % Normal 0.9-7.0 [facility] [place] [facility] Comment on above: Performed By: #### C BC ####[facility] E[address] [place], [place] [address]Dr. Chioma Agosto Erythrocyte distribution width (RBC) [Ratio] 13.7 % Normal 11.0-15.0 [facility] [place] [facility] Comment on above: Performed By: #### C BC ####[facility] [address] [place], [place] [address]Dr. Chioma Agosto Hematocrit (Bld) [Volume fraction] 48.9 % Normal 42.0-54.0 [facility] [place] [facility] Comment on above: Performed By: #### C BC ####[facility] [address] [place], [place] [address]Dr. Chioma Agosto Hemoglobin (Bld) [Mass/Vol] 16.1 g/dL Normal 14.0-18.0 [facility] [place] [facility] Comment on above: Performed By: #### C BC ####[facility] Li[address] [place], [place] [address]Dr. Chioma Agosto IG # 0.02 10e3/ul Normal 0.00-0.03 [facility] [place] [facility] Comment on above: Performed By: #### C BC ####[facility] Ges[address] [place], [place] [address]Dr. Chioma Agosto IG % 0.2 % Normal 0.0-0.5 [facility] [place] [facility] Comment on above: Performed By: #### C BC ####[facility] [address] [place], [place] [address]Dr. Chioma Surendra LYMPH # 2.6 103/ul Normal 1.2-3.8 [facility] [place] [facility] Comment on above: Performed By: #### C BC ####[facility] [address] [address]Dr. Jeaniejason Agosto Lymphocytes/100 WBC (Bld) 30.7 % Normal 20.5-60.0 [facility] [place] [facility] Comment on above: Performed By: #### C BC ####[facility] [address] [address]Dr. Chioma Agosto MANUAL DIFF REQ NO Normal [facility] Comment on above: Performed By: #### C BC ####[facility] [address] [address]Dr. Chioma Surendra MCH (RBC) [Entitic mass] 31.8 pg Normal 25.9-34.0 [facility] [place] [facility] Comment on above: Performed By: #### C BC ####[facility] [address] [address]Dr. Chioma Surendra MCHC (RBC) [Mass/Vol] 32.9 g/dL Normal 29.9-35.2 [facility] [place] [facility] Comment on above: Performed By: #### C BC ####[facility] [address] [address]Dr. Chioma Agosto MCV (RBC) [Entitic vol] 96.4 fL Critically high 80.0-94.0 [facility] [place] [facility] Comment on above: Performed By: #### C BC ####[facility] [address] [address]Dr. Chioma Agosto MONO # 1.0 103/ul Critically high 0.3-0.8 [facility] Comment on above: Performed By: #### C BC ####[facility] [address] [address]Dr. Chioma Agosto Monocytes/100 WBC (Bld) 11.2 % Normal 1.7-12.0 [facility] [place] [facility] Comment on above: Performed By: #### C BC ####[facility] [address] [address]Dr. Chioma Agosto NEUT # 4.6 103/ul Normal 1.4-6.5 [facility] [place] [facility] Comment on above: Performed By: #### C BC ####[facility] [address] [address]Dr. Chioma Agosto Neutrophils/100 WBC (Bld) 53.8 % Normal 43.0-75.0 [facility] [place] [facility] Comment on above: Performed By: #### C BC ####[facility] [address] [address]Dr. Chioma Agosto Platelet mean volume (Bld) [Entitic vol] 10.5 fL Normal 9.5-13.5 [facility] [place] [facility] Comment on above: Performed By: #### C BC ####[facility] [address] [address]Dr. Chioma Agosto PLT 247 103/ul Normal 150-450 [facility] [place] [facility] Comment on above: Performed By: #### C BC ####[facility] [address] [address]Dr. Chioma Agosto RBC 5.07 106/ul Normal 4.70-6.10 [facility] [place] [facility] Comment on above: Performed By: #### C BC ####[facility] [address] [address]Dr. Chioma Agosto WBC 8.6 103/ul Normal 4.0-11.0 [facility] [place] [facility] Comment on above: Performed By: #### C BC ####[facility] [address] [address]Dr. Chioma Agosto D-DIMERon 09-12-2021 D-DIMER 0.28 mg/L FEU Normal 0.19-0.50 The [facility] Comment on above: Performed By: #### D DIM ####[facility] [address] [address]Dr. Chioma Agosto D-DIMER COMMENTS SEE BELOW Normal The [facility] Comment on above: Result Comment: Incr eases [...] generalized hospitalization. Performed By: #### D DIM ####[facility] [address] [address]Dr. Chioma Agosto PROF 14(COMP METB)on 021 Albumin [Mass/Vol] 4.3 g/dL Normal 3.5-5.0 [facility] Comment on above: Performed By: #### C MP, BNP, HSTROPN ####[facility] [address] [address]Dr. Chioma Agosto Albumin/Globulin [Mass ratio] 1.2 {ratio} Normal [facility] Comment on above: Performed By: #### C MP, BNP, HSTROPN ####[facility] [address] [place], [place] [address]Dr. Chioma Agosto ALP [Catalytic activity/Vol] 118 U/L Normal 38-126 [facility] Comment on above: Performed By: #### C MP, BNP, HSTROPN ####[facility] N[address] [place], [place] [address]Dr. Chioma Agosto ALT [Catalytic activity/Vol] 48 U/L Normal 21-72 [facility] Comment on above: Performed By: #### C MP, BNP, HSTROPN ####[facility] [address] [address]Dr. Chioma Agosto Anion gap [Moles/Vol] 10.3 mmol/L Normal [facility] Comment on above: Performed By: #### C MP, BNP, HSTROPN ####[facility] [address] [address]Dr. Chioma Agosto AST [Catalytic activity/Vol] 17 U/L Normal 17-59 [facility] Comment on above: Performed By: #### C MP, BNP, HSTROPN ####[facility] [address] [address]Dr. Chioma Agosto Bilirubin [Mass/Vol] 0.3 mg/dL Normal 0.2-1.3 [facility] [place] [facility] Comment on above: Performed By: #### C MP, BNP, HSTROPN ####[facility] [address] [address]Dr. Chioma Agosto Calcium [Mass/Vol] 9.7 mg/dL Normal 8.4-10.2 The [facility] Comment on above: Performed By: #### C MP, BNP, HSTROPN ####[facility] E[address]vjl[address] [place], [place] [address]Dr. Chioma Agosto Chloride [Moles/Vol] 100 mmol/L Normal 98-107 [facility] [place] [facility] Comment on above: Performed By: #### C MP, BNP, HSTROPN ####[facility] [address]wo[address] [place], [place] [address]Dr. Chioma Agosto CO2 [Moles/Vol] 29.0 mmol/L Normal 22.0-30.0 The [facility] Comment on above: Performed By: #### C MP, BNP, HSTROPN ####[facility] [address] [place], [place] [address]Dr. Chioma Agosto Creatinine [Mass/Vol] 0.86 mg/dL Normal 0.66-1.25 [facility] [place] [facility] Comment on above: Performed By: #### C MP, BNP, HSTROPN ####[facility] H[address] [place], [place] [address]Dr. Chioma Agosto EGFR-AF MONEGASQUE >60 Normal >=60 The [facility] Comment on above: Performed By: #### C MP, BNP, HSTROPN ####[facility] [facility] Xvc[address] [place], [place] [address]Dr. Chioma Agosto EGFR-NON AF MONEGASQUE >60 Normal >=60 [facility] [place] [facility] Comment on above: Performed By: #### C MP, BNP, HSTROPN ####[facility] [address] [place], [place] [address]Dr. Chioma Agosto Globulin (S) [Mass/Vol] 3.6 g/dL Normal [facility] Comment on above: Performed By: #### C MP, BNP, HSTROPN ####[facility] [address] [address]Dr. Chioma Agosto Glucose [Mass/Vol] 79 mg/dL Normal 74-106 The [facility] Comment on above: Performed By: #### C MP, BNP, HSTROPN ####[facility] [address] [place], [place] [address]Dr. Chioma Agosto Potassium [Moles/Vol] 4.3 mmol/L Normal 3.4-5.0 [facility] [place] [facility] Comment on above: Performed By: #### C MP, BNP, HSTROPN ####[facility] [address]sfyjr[address] [place], [place] [address]Dr. Chioma Agosto Protein [Mass/Vol] 7.9 g/dL Normal 6.1-8.2 The [facility] Comment on above: Performed By: #### C MP, BNP, HSTROPN ####[facility] [address] [place], [place] [address]Dr. Chioma Agosto Sodium [Moles/Vol] 135 mmol/L Critically low 137-145 [facility] Comment on above: Performed By: #### C MP, BNP, HSTROPN ####[facility] [address] [place], [place] [address]Dr. Chioma Agosto Urea nitrogen [Mass/Vol] 21.0 mg/dL Critically high 9.0-20.0 [facility] Comment on above: Performed By: #### C MP, BNP, HSTROPN ####[facility] [facility] [address] [place], [place] [address]Dr. Chioma Agosto Urea nitrogen/Creatinine [Mass ratio] 24.4 mg/mg Normal [facility] [place] [facility] Comment on above: Performed By: #### C MP, BNP, HSTROPN ####[facility] [address] [place], [place] [address]Dr. Chioma Agosto TROPONIN, HIGH SENSITIVITYon 09-12-2021 HSTROP 5.2 pg/mL Normal 4.0-42.2 [facility] [place] [facility] Comment on above: Result Comment: CUT- OFF POINTS HAVE BEEN ESTABLISHED BASED ON THE FOURTH UNIVERSAL DEFINITIONS OF MYOCARDIAL INFARCTION. THE UPPER REFERENCE LIMIT (URL) OF TROPONIN, DEFINED THE 99TH PERCENTILE OF cTnI DISTRIBUTION IN A REFERENCE POPULATION, HAS BEEN CONFIRMED THE DECISION THRESHOLD FOR LA DIAGNOSIS. Performed By: #### C MP, BNP, HSTROPN ####[facility] [address] [place], [place] [address]Aw. Chioma Agosto XR CHEST 1 Von 09-12-2021 [...] ANTHONY SOMMER Date: 2021-09-12 17:53 Normal [facility] [place] [facility] D-DIMERon 07-18-2021 D-DIMER 0.49 mg/L FEU Normal 0.19-0.50 The [facility] Comment on above: Performed By: #### D DIM ####[facility] [address] [address]Dr. Chioma Agosto D-DIMER COMMENTS SEE BELOW Normal The [facility] Comment on above: Result Comment: Incr eases [...] generalized hospitalization. Performed By: #### D DIM ####[facility] [address] [place], [place] [address]Fw. Chioma Agosto XR CHEST 1 Von 07-18-2021 [...] ANTHONY SOMMER Date: 2021-07-18 19:13 Normal [facility] Vital Signs Date Time Vital Sign Value Performing Clinician Facility 07-14-2024 14:31-0400 Body height 175.26 cm DO Travis Junior Work Phone: [facility] 07-14-2024 14:31-0400 Body weight 104.32 kg DO Travis Junior Work Phone: [facility] 07-21-2022 06:44-0400 Body height 175.26 cm DO Rory Moya Work Phone: [facility] 07-21-2022 06:44-0400 Body weight 86.18 kg DO Rory Moya Work Phone: [facility] 04-19-2022 16:44-0400 Diastolic blood pressure 81 mm[Hg] Ivy Gomez Work Phone: [facility] [employer] 04-19-2022 16:44-0400 Heart rate 88 /min Ivy Gomez Work Phone: [facility] [employer] 04-19-2022 16:44-0400 Respiratory rate 24 /min Ivy Gomez Work Phone: [facility] [employer] 04-19-2022 16:44-0400 SaO2% (BldA) [Mass fraction] 97 % Ivy Gomez Work Phone: [facility] [employer] 04-19-2022 16:44-0400 Systolic blood pressure 124 mm[Hg] Ivy Gomez Work Phone: [facility] [employer] 04-19-2022 15:58-0400 Body temperature 98.8 [degF] Ivy Gomez Work Phone: [facility] 09-01-2021 13:30-0400 Body height 175.26 cm Luana Simons Other [facility] Other 09-01-2021 13:30-0400 Body mass index (BMI) [Ratio] 27.32 kg/m2 Luana Simons Other [facility] [facility] Other 09-01-2021 13:30-0400 Body temperature 100.1 [degF] Luana Simons Other [facility] Other 09-01-2021 13:30-0400 Body weight 83.92 kg Luana Simons Other [facility] [facility] Other 09-01-2021 13:30-0400 Respiratory rate 18 /min Luana Simons Other [employer] [facility] Other 09-01-2021 13:30-0400 SaO2% (BldA) [Mass fraction] 97 % Luana Simons Other [employer] Other Encounters Encounter Date Encounter Type Care Provider Facility Start: 07-14-2024 End: 07-14-2024 Patient encounter procedure DO Travis Junior Work Phone: [facility] [place] Work Phone: Start: 07-14-2024 End: 07-14-2024 ambulatory DO Travis Junior Work Phone: [facility] Work Phone: Start: 06-16-2024 End: 06-16-2024 ambulatory KRISTY CHAUNCEY Not Available Start: 07-21-2022 End: 07-21-2022 Patient encounter procedure DO Rory Moya Work Phone: [facility] [place] Start: 04-19-2022 Emergency department patient visit IVY Oates GOMEZ [facility] Start: 04-19-2022 End: 04-19-2022 Emergency department patient visit Ivy Gomez Work Phone: [facility] ED Comment on above: Atypical chest pain (Primary Dx); Dizziness Start: 04-15-2022 End: 04-16-[address] IVY GOMEZ Facility:[facility] Start: 03-19-2022 End: 03-20-[address] IVY GOMEZ Facility:[facility] Start: 09-12-2021 End: 09-12-[address] IVY GOMEZ Facility:[facility] Start: 09-01-2021 End: 09-01-2021 ambulatory Luana Simons Other [facility] [facility] Other Start: 09-01-2021 Office outpatient ne w 20 minutes Luana Simons [facility] Start: 07-18-2021 End: 07-18-2021 ambulatory COLEMAN LIU Facility:[facility] Procedures Date Procedure Procedure Detail Performing Clinician Start: 07-14-2024 MR angiography of he ad with contrast DO Travis Junior Work Phone: Start: 07-21-2022 MRI of head DO Esdras Moya Work Phone: Start: 04-19-2022 Radiologic exam ches t single view Erik Mora PA-C Work Phone: Start: 04-19-2022 Assay of troponin quantitative Erik Mora PA-C Work Phone: Start: 04-19-2022 Ecg routine ecg w/le ast 12 lds w/i&r Erik Mora PA-C Work Phone: Plan of Treatment Date Care Activity Detail Author Start: 07-14-2024 Magnetic resonance angiography of neck without contrast MR angio neck wo con [facility] Start: 07-03-2022 Influenza vaccination Flu vaccine (Season Ended) [facility] Start: 2002 DTaP/Tdap/Td vaccine (1 - Tdap) DTaP/Tdap/Td vaccine (1 - Tdap) [facility] Start: 2001 Hepatitis C screening Hepatitis C screen [facility] [employer] Start: 1998 HIV screening HIV screen [facility] Start: 1995 Depression Screen Depression Screen [facility] Start: 1989 Pneumococcal 0-64 years Vaccine (1 - PCV) Pneumococcal 0-64 years Vaccine (1 - PCV) [facility] Start: 1988 COVID-19 Vaccine (1) COVID-19 Vaccine (1) [facility] Start: 1984 Varicella vaccine (1 of 2 - 2-dose childhood series) Varicella vaccine (1 of 2 - 2-dose childhood series) [facility] [employer] EKG 12 Lead EKG 12 Lead ECG Routine 04/19/2022 4:18 PM EDT [facility] Work Phone: Payers Date Payer Category Payer Self-pay 2024 Medicaid [id number] 1985 Unknown [id number] 2.16.84 [id number] 1983 Unknown [id number] 2.16.84 [id number] 1983 Unknown [id number] 2.16.84 [id number] 1983 Unknown [id number] 2.16.84 [id number] 1983 Unknown [id number] 2.16.8 [id number] 1983 Unknown [id number] 2.16.84 [id number] 1959 Unknown [id number] Unknown [id number] 2.16.8 [id number] Social History Date Type Detail Facility Start: 04-19-2022 [facility] [employer] Other History of tobacco use Cigarette Smoker B ON [employer] Phone: Start: 04-19-2022 Cigarettes smoked current (pack per day) - Reported 1 [employer] Phone: Start: 04-19-2022 Tobacco use and exposure Smokeless tobacco non-user [facility] [employer] Phone: Start: 04-19-2022 Alcohol intake Ex-drinker (finding) [employer] Phone: Start: 1985 Sex Assigned At Not on file B ON [employer] Phone: Start: 04-09-2022 End: 04-19-2022 Exposure to SARS-CoV-2 (event) Not sure [employer] Phone: Sex Assigned At Sex Assigned At Bir th [facility] Other Start: 1985 Sex Assigned At Male F [facility] Discharge instructions 04-19-2022 InstructionsAttachments Note Date [...] attachments cannot be sent through Care Everywhere.Dizziness (Luxembourgish)Lightheadedness or Faintness (Luxembourgish)documented in this encounter [employer] Phone: Evaluation note 09-01-2021 Note Date & Type Note Facility 09-01-2021 Evaluation note Encounter Date Diagnosis Assessment Notes Aug, Acute non-recurrent sinusitis, unspecified location (ICD-10 - J01.90) Aug, Right otitis media, unspecified otitis media type (ICD-10 - H66.91) Aug, Acute otitis externa of right ear, unspecified type (ICD-10 - H60.501) [facility] Other Evaluation note Note Date & Type Note Facility Evaluation note Diagnosis Atypical chest pain- Primary Other chest pain Dizziness Dizziness and giddiness documented in this encounter [facility] Work Phone: Evaluation note Note Date & Type Note Facility Evaluation note No assessment information availa [facility] Work Phone: History general Narrative - Reported Note Date & Type Note Facility History general Narrative - Reported Type Medical History HTN (hypertension) Surgical History fracture repair right arm [facility] Other Summary Purpose Family History No Family History Records Found Relationship Condition Age at Onset Recorded Date/T ernie mother Hypertension Unknown Advance Directives No Advanced Directives Records Found Advance Directive Response Recorded Date/ Time Advance Directives No July 10:26am Chief Complaint and Reason for Visit Chief Complaint r27.0 Chief Complaint r47.01 g43.909 Additional Source Comments (unrecognized sect ion and content) No Status Records FoundNo Status Records FoundNo Status Records FoundNo Status Records Found INFORMATION SOURCE (unrecogn ized section and content) DATE CREATED AUTHOR 04/18/2022 [facility] DATE CREATED AUTHOR AUTHOR'S ORGANIZ ATION 04/20/2022 [facility] DATE CREATED AUTHOR AUTHOR'S ORGANIZ ATION 06/18/2024 [facility] EPIC DATE CREATED AUTHOR AUTHOR'S ORGANIZ ATION 07/16/2024 [facility] Reason for Visit (unrecogniz ed section and content) Reason Comments Dizziness started yesterday Chest Pain at times Shortness of Breath off and on Care Teams (unrecognized sec tion and content) Service Correspondent Relationship Specialty Start Date End Date Ivy Gomez [facility] [place] [address] PCP - General Family Medicine 04/19/22 Team Status: Inactive Member Role Status Dates Rory Moya DO Attending Provider Active Ivy Gomez MD Primary Care Provider Active Team Status: Active Member Role Status Dates Ivy Gomez MD Primary Care Provider Active Team Status: Active Member Role Status Dates Travis Junior DO Primary Care Provider Active Team Status: Inactive Member Role Status Dates Kristy Grossman APRN-[employer]OD PRODUCT INSPECTOR-C Attending Provider Active Start: July 14, 2024 End: July 14, 2024 Travis Junior DO Primary Care Provider Active Start: July 14, 2024 End: July 14, 2024 Goals (unrecognized section and content) Goals may [...] BE BASED ON THE PRIMARY CLINICAL RECORDS. [employer] provides no warranty or guarantee of the accuracy or completeness of information in this document.
== END 2024-07-18 09:09 | disposition home or self-care (01) ==
LOC: CT 09:08
PROVIDERS: PCP Family Medicine; Visit Provider Family Medicine
DX: R10.32 Left lower quadrant pain (principal); K57.90 Diverticulosis of intestine, part unspecified, without perforation or abscess without bleeding
CPT/HCPCS: 74177; Q9967

== ENCOUNTER 2025-06-29 11:01 | Emergency (ER) | payer MEDICAID, SELFPAY ==
[2025-06-29 11:06] VITALS: BP 128/106; PULSE 89; TEMP 37; O2SAT 99; BMI 38.0
--- NOTE | 2025-06-29 11:15 | CT_ITS ---
The [address] [address] Patient Name: REANNA HOOKS MRN: [id number] date: 1985 Sex: M Assigned Patient Location: ER Current Patient Location: ER Accession/Order Number: [id number] Exam Date: 06/29/2025 11:58 Report Date: 06/29/2025 12:26 At the request of: TOREY PEARL MD Procedure: CT abdomen pelvis wo con CT ABDOMEN AND PELVIS WITHOUT CONTRAST COMPARISON: 07/18/2024 CLINICAL DATA: Right lower quadrant pain. History of diverticular disease. Spiral images were obtained through the abdomen and pelvis without contrast. This CT exam was performed using one or more following dose reduction techniques: Automated exposure control, adjustment of the mA and/or kV according to patient size, or use of iterative reconstruction technique. Limited imaging through the lung bases shows minimal scarring or atelectasis on the left. Evaluation of the intra-abdominal organs is slightly limited by the absence of contrast. Fatty infiltration of liver is suspected. No calcified gallstones are seen. The spleen and pancreas are unremarkable. There is still minimal nodular thickening at the julius of the left adrenal gland. There are no renal calculi or hydronephrosis. No ureteral dilatation or stones are seen. The abdominal aorta is normal caliber. There are few tiny lymph nodes. No ascites is identified. The small bowel loops are not distended. There is mild stool within the ascending and minimal at the descending colon. The transverse colon is decompressed. Left-sided colonic diverticula are noted. Slight levoscoliotic curvature is present. Images through the pelvis show normal caliber small bowel loops. There is mild distal colonic stool. There are additional descending and sigmoid diverticula, without associated active inflammation. The appendix is slightly prominent measuring roughly a centimeter in diameter. There is also minor adjacent stranding raising concern for acute appendicitis. There are no abnormal fluid collections or evidence of perforation. The urinary bladder shows no CT abnormalities. There are mildly patulous inguinal rings containing fat, larger on the left. No ascites is seen. CT/CT abdomen pelvis wo con IMPRESSION: MILDLY PROMINENT APPENDIX WITH MINOR PERIAPPENDICEAL STRANDING. FINDINGS ARE SUSPICIOUS FOR ACUTE APPENDICITIS. CORRELATION AND FOLLOW-UP ARE RECOMMENDED. SUSPECTED FATTY LIVER. DIVERTICULOSIS. Preliminary report was provided to the emergency department physician at 1226 hours Impression dictated by: Heidi Gould M.D. 06/29/2025 12:26 PM Dictation Location: [place] [address] Electronically authenticated by: [id number] Y Date: 06/29/2025 12:26
--- OUTSIDE RECORDS SUMMARY | 2025-06-29 11:16 | XMS_ITS | CCD ---
Author Organization [facility] Care Team Providers Care Senior Java Web Developer Name Role Phone COLEMAN LIU Admitting Unavailable COLEMAN LIU Attending Unavailable TISHA, DR IVY Oates Primary Care Unavailable COLEMAN LIU Consulting Unavailable AHNAVNEET, ANTHONY Consulting Unavailable TISHA, DR IVY Oates Primary Care Unavailable SCOTTY OLIVERA Admitting Unavailable SCOTTY OLIVERA Attending Unavailable JOAQUINA HOPE Consulting Unavailable AHNAVNEET, ANTHONY Consulting Unavailable TISHA, DR IVY Oates Primary Care Unavailable MARKER, DR VELARDE Admitting Unavailable MARKER, DR VELARDE Attending Unavailable JOAQUINA BONILLA Consulting Unavailable IVAN MAY Consulting Unavailable TISHA, DR IVY Oates Primary Care Unavailable OLGA DICK Consulting Unavailable SCOTTY OLIVERA Admitting Unavailable JOSELIN, SCOTTY Attending Unavailable CLIFTON GONZALEZ Consulting Unavailable Ivy Gomez Primary Care Provider IVY GOMEZ Primary Care Unavailable Luana Simons Unavailable DO Rory Moya Attending Provider MD Ivy Gomez Primary Care Provider ELOY Grossman Attending Provider DO Travis Elmore Primary Care Provider Travis Elmore Primary Care Unavailable Kristy Grossman Attending Unavailable Kristy Grossman Admitting Unavailable Ivy Gomez MD Primary Care Provider [phone] OLGA CHILEL Attending Unavailable IVY GOMEZ Referring Unavailable TRAVIS ELMORE Primary Care Unavailable IVY GOMEZ Referring Unavailable IVY GOMEZ Primary Care Unavailable Travis Elmore DO Primary Care Provider [phone] Travis Elmore DO Primary Care Provider Chauncey AUTOMATIC MACHINES SUPERVISOR, Kristy Unavailable KRISTY GROSSMAN Attending Unavailable CHAUNCEY, KRISTY Attending Unavailable CHAUNCEY, KRISTY Attending Unavailable CHAUNCEY, KRISTY Attending Unavailable CHAUNCEY, KRISTY Attending Unavailable Allergies Allergy Classification Reported Allergen(s) Allergy Type Date of Onset Reaction(s) Facility (1 source) Amoxicillin / Clavulanate Drug Allergy [facility] Repository (15 sources) Amoxicillin-Pot Clavulanate; Translations: [AMOXICILLIN-PO T CLAVULANATE] Propensity to adverse reactions to drug 1 Anaphylaxis, Nausea And Vomiting, Swelling [facility] (1 source) Amoxicillin / Clavulanate Drug Allergy throat swelling [employer] Other (1 source) Amoxicillin Drug Allergy 1 [facility] Repository (1 source) Clavulanate Drug Allergy 1 [facility] Repository (1 source) Unable to Assess Drug allergy (disorder) 2 [facility] Repository Medications Current Medications Medication Drug Class(es) Dates Sig (Normalized) Sig (Original) [id number] 200 actuat albuterol 0.09 mg/actuat metered dose inhaler (9 sources) beta2-Adrenergic Agonist Start: 06-13-2024 take 2 puff(s) by inhalation every six hours albuterol HFA 90 mcg/act inhaler Inhale 2 puffs every 6 (six) hours if needed 06/13/2024 Active take 2 puff(s) by in halation once daily as needed albuterol (PROVENTIL HFA;VENTOLIN HFA) 9 0 mcg/actuation inhaler Inhale 2 puffs daily as needed. Active cephalexin 500 mg oral capsule (1 source) Cephalosporin Antibacterial Start: 09-01-2021 take 1 capsule by mouth every eight hours Cephalexin 500 MG 1 capsule Orally tid for 10 day(s) Aug, Active escitalopram 5 mg oral tablet (13 sources) Serotonin Reuptake Inhibitor take 1 tablet by mouth once daily escitalopram (Lexapro) 5 MG tablet Take 5 mg by mouth Daily Active fluticasone (1 source) Corticosteroid Start: 09-01-2021 take 2 spray(s) nasal route once daily FLONASE 50 mcg 2 sprays nasally qd 2 sprays to each nostril daily until your symptoms improve Aug, Active hydrocortisone 10 mg/ml / neomycin 3.5 mg/ml / polymyxin b 02537 unt/ml otic suspension (1 source) Aminoglycoside Antibacterial, Polymyxin-class Antibacterial, Corticosteroid Start: 09-01-2021 Neomycin-Polymyxi n-HC 3.5-15280-9 3 drops right ear Three times a day for 7 days Aug, Active lisinopril 10 mg oral tablet (15 sources) Angiotensin Converting Enzyme Inhibitor take 1 tablet by mouth once daily lisinopril 10 MG tablet Take 10 mg by mouth Daily Active meclizine hydrochloride 12.5 mg oral tablet (7 sources) Antiemetic Start: 03-30-2025 End: 04-09-2025 take 1 tablet by mouth three times daily as needed for dizziness meclizine (Antivert) 12.5 MG tablet Indications: Dizziness Take 1 tablet (12.5 mg) by mouth 3 (three) times a day as needed for dizziness for up to 10 days 30 tablet 03/30/2025 04/09/2025 Active Start: 03-20-2022 take 1 tablet by shannon th every eight hours as needed meclizine (ANTIVERT) 25 mg tablet Take 1 tablet (25 mg total) by mouth every 8 (eight) hours as needed. 03/20/2022 Active End: 03-30-2025 take 1 tablet by mouth three times daily as needed for dizziness meclizine (Antivert) 25 MG tablet Take 25 mg by mouth 3 (three) times a day as needed for dizziness 03/30/2025 Discontinued (Therapy completed) predniSONE 20 mg oral tablet (1 source) Start: 09-01-2021 take 1 tablet by mouth every twelve hours predniSONE 20 MG 1 tablet Orally bid for 5 day(s) Aug, Active rimegepant 75 mg disintegrating oral tablet (4 sources) Start: 03-30-2025 Rimegepant Sul fate (Nurtec) 75 MG tablet dispersible Indications: Episodic migraine (CMS/HCC) Take 1 tablet by mouth as needed at the onset of migraine. Place on tongue and allow to dissolve. Take no more than 1 dose in 24 hours. 8 tablet 11 03/30/2025 Active Start: 03-30-2025 Rimegepant Sul fate (Nurtec) 75 MG tablet dispersible Indications: Episodic migraine (CMS/HCC) Take 1 tablet by mouth as needed at the onset of migraine. Place on tongue and allow to dissolve. Take no more than 1 dose in 24 hours. 8 tablet 11 03/30/2025 Active Start: 10-13-2024 Rimegepant Sul fate (Nurtec) 75 MG tablet dispersible Indications: Episodic migraine (CMS/HCC) Take 1 tablet by mouth as needed at the onset of migraine. Place on tongue and allow to dissolve. Take no more than 1 dose in 24 hours. 8 tablet 5 10/13/2024 Active rizatriptan 5 mg oral tablet (7 sources) Serotonin-1b and Serotonin-1d Receptor Agonist Start: 08-17-2024 End: 10-13-2024 take 1 tablet by mouth once as needed rizatriptan (MAXALT) 5 mg tablet Take 1 tablet (5 mg total) by mouth once as needed. 08/17/2024 Active tiotropium 0.018 mg inhalation powder (2 sources) Anticholinergic take 1 capsule by inhalation in the morning tiotropium (Spiriva) [address] 1 capsule into inhaler and inhale in the morning. Active topiramate 25 mg oral tablet (2 sources) Start: 03-30-2025 End: 06-28-2025 take 1 tablet by mouth at bedtime topiramate (Topamax) 25 MG tablet Indications: Episodic migraine (CMS/HCC) Take 1 tablet (25 mg) by mouth at bedtime 90 tablet 03/30/2025 06/28/2025 Active ubrogepant 100 mg oral tablet (2 sources) Start: 01-23-2025 End: 03-30-2025 Ubrogepant (Ubrelvy) 100 MG tablet Indications: Episodic migraine (CMS/HCC) Take 1 tablet by mouth as needed at the onset of migraine. May repeat dose (1 tablet) once after 2 hours if migraine persists. Take no more than 2 doses in 24 hours. 8 tablet 5 01/23/2025 03/30/2025 Discontinued (Other) 30 actuat umeclidinium 0.0625 mg/actuat / vilanterol 0.025 mg/actuat dry powder inhaler (6 sources) Anticholinergic, beta2-Adrenergic Agonist Start: 08-25-2024 take 1 puff(s) by inhalation in the morning ANORO ELLIPTA 62.5-25 mcg/actuation blister with device Inhale 1 puff in the morning. 08/25/2024 Active Anoro Ellipta 62 .5-25 MCG/ACT aerosol powder Active take 1 puff(s) by inhalation onc e daily Anoro Ellipta 62.5-25 MCG/ACT aerosol powder INHALE 1 PUFF INTO THE LUNGS EVERY DAY FOR 30 DAYS Active verapamil hydrochloride 120 mg extended release oral tablet (17 sources) Calcium Channel Dilcia Start: 02-28-2025 End: 09-26-2025 take 1 tablet by mouth at bedtime verapamil SR (Calan SR) 120 MG ER tablet Indications: Episodic migraine (CMS/HCC) Take 1 tablet (120 mg) by mouth at bedtime Do not crush or chew. 90 tablet 1 03/30/2025 09/26/2025 Active Start: 02-20-2025 End: 03-30-2025 take 1 tablet by mouth at bedtime verapamil SR (Calan SR) 180 MG ER tablet Indications: Episodic migraine (CMS/HCC) TAKE 1 TABLET BY MOUTH AT BEDTIME DO NOT CRUSH OR CHEW. 90 tablet 1 02/20/2025 03/30/2025 Discontinued (Dose adjustment) Start: 06-22-2024 End: 10-18-2024 take 1 tablet by mouth once daily verapamil SR (CALAN-SR) 120 mg CR tablet Take 1 tablet (120 mg total) by mouth nightly. 07/20/2024 10/18/2024 Active Completed/Discontinued Medications Medication Drug Class(es) Dates Sig (Normalized) Sig (Original) peg 3350-sod sulf,xuhb-fpw-lmx 178.7-7.3-0.5 gram recon soln (2 sources) Start: 08-31-2024 End: 08-31-2024 peg 3350-sod sulf,dvml-qhq-hrm 178.7-7.3-0.5 gram recon soln Indications: Abnormal CT of the abdomen , Diverticular disease , Left lower quadrant abdominal pain Take 1 kit by mouth in the morning for 1 dose. Please see instructional sheet given by Physicians office. 1 each 08/31/2024 08/31/2024 Discontinued Start: 08-31-2024 End: 09-01-2024 peg 3350-sod sulf,chlr-pot-m ag 178.7-7.3-0.5 gram recon soln Indications: Abnormal CT of the abdomen , Diverticular disease , Left lower quadrant abdominal pain Take 1 kit by mouth in the morning for 1 dose. Please see instructional sheet given by Physicians office. 1 each 08/31/2024 09/01/2024 SUMAtriptan 50 mg oral tablet (6 sources) Serotonin-1b and Serotonin-1d Receptor Agonist End: 08-17-2024 SUMAtriptan (Imitrex) 50 MG tablet Take 50 mg by mouth 1 (one) time if needed for migraine May repeat dose once in 2 hours if no relief. Do not exceed 2 doses in 24 hours. 08/17/2024 Discontinued (Side effects) Problems Active Problems Problem Classification Problem Date Documented Da te Episodic/Chronic Acute cerebrovascular disease (6 sources) Intracranial hemorrhage; Translations: [Nontraumatic intracranial hemorrhage, unspecified] 08-17-2024 Chronic Conditions associated with dizziness or vertigo (20 sources) Dizziness and giddiness; Translations: [Dizziness] Onset: 03-19-2022 Episodic Diverticulosis and diverticulitis (3 sources) Diverticulosis of intestine, part unspecified, without perforation or abscess without bleeding; Translations: [Diverticular disease] Onset: 08-31-2024 09-02-2024 Chronic Essential hypertension (3 sources) Essential (primary) hypertension; Translations: [Essential hypertension] Onset: 04-17-2022 04-21-2022 Chronic Headache; including migraine (20 sources) Migraine, unspecified, not intractable, without status migrainosus; Translations: [Migraine, unspecified, without mention of intractable migraine without mention of status migrainosus] Onset: 06-12-2024 06-12-2024 Chronic Heart valve disorders (1 source) Nonrheumatic mitral (valve) prolapse; Translations: [NONRHEUMATIC MITRAL VALVE PROLAPSE] Onset: 09-16-2021 Chronic Other aftercare (1 source) Other oysterman (current) drug therapy; Translations: [OTH CERAMIC PRODUCTS SALES ENGINEER CURRENT DRUG THERAPY] Onset: 04-17-2022 Episodic Other nervous system disorders (1 source) Aphasia; Translations: [Aphasia] Onset: 07-14-2024 Chronic Other nervous system disorders (8 sources) Expressive dysphasia; Translations: [Aphasia] 08-17-2024 Chronic Other nutritional; endocrine; and metabolic disorders (1 source) Drug-induced obesity; Translations: [Drug-induced obesity] Onset: 08-31-2024 Chronic Other nutritional; endocrine; and metabolic disorders (1 source) Body mass index (BMI) 34.0-34.9, adult; Translations: [Body mass index (BMI) 34.0-34.9, adult] Onset: 08-31-2024 Chronic Other nutritional; endocrine; and metabolic disorders (1 source) Drug-induced obesity; Translations: [Class 1 drug-induced obesity with serious comorbidity and body mass index (BMI) of 34.0 to 34.9 in adult] 08-31-2024 Chronic Residual codes; unclassified (1 source) Pain, unspecified; Translations: [Pain, unspecified] Onset: 09-01-2024 Episodic Substance-related disorders (1 source) Nicotine dependence, cigarettes, uncomplicated; Translations: [NICOTINE DEPEND CIGARETTES UNCOMP] Onset: 09-16-2021 Chronic Unclassified (1 source) COUGH, UNSPECIFIED; Translations: [COUGH, UNSPECIFIED] Onset: 09-16-2021 Unclassified (1 source) PERSONAL HISTORY OF COVID-19; Translations: [PERSONAL HISTORY OF COVID-19] Onset: 07-22-2021 Unclassified (1 source) Obesity, class 1; Translations: [Obesity, class 1] Onset: 08-31-2024 Past or Other Problems Problem Classification Problem Date Documented Da te Episodic/Chronic Abdominal hernia (3 sources) Unilateral inguinal hernia, without obstruction or gangrene, not specified as recurrent; Translations: [Hernia of abdominal cavity] Onset: 08-31-2024 08-31-2024 Episodic Abdominal pain (3 sources) Left lower quadrant pain; Translations: [Left lower quadrant pain] Onset: 08-31-2024 09-02-2024 Episodic Nonspecific chest pain (8 sources) Chest pain, unspecified; Translations: [Other chest pain] Onset: 07-22-2021 Episodic Other ear and sense organ disorders (1 source) Unspecified acute noninfective otitis externa, right ear Onset: 09-01-2021 Resolved: 09-01-2021 Episodic Other lower respiratory disease (1 source) Shortness of breath; Translations: [SHORTNESS OF BREATH] Onset: 09-16-2021 Episodic Other nervous system disorders (11 sources) Ataxia; Translations: [Ataxia, unspecified] Onset: 06-12-2024 06-12-2024 Episodic Other screening for suspected conditions (not mental disorders or infectious disease) (2 sources) Abnormal findings on diagnostic imaging of other abdominal regions, including retroperitoneum; Translations: [CT of abdomen abnormal] Onset: 08-31-2024 08-31-2024 Episodic Other upper respiratory infections (1 source) Acute sinusitis, unspecified Onset: 09-01-2021 Resolved: 09-01-2021 Episodic Otitis media and related conditions (1 source) Otitis media, unspecified, right ear Onset: 09-01-2021 Resolved: 09-01-2021 Episodic Unclassified (4 sources) Episodic migraine (CMS/HCC) 10-13-2024 Results Test Name Value Interpretation Reference Range Facility MR angio MR brain wo/w conon 07-14-2024 MR angio MR brain wo/w con [facility] [place] [address] MRI Report Signed Patient: Doroteo Sharif MR#: [id number] : 1985 Acct:[id number] Age/Sex: 39 / M ADM Date: 07/14/24 Loc: Room: Type: [facility] Attending Dr: Kristy LYONS Copies to: ELOY Reich Ordering Provider: ELOY Reich Date of Service: 07/14/24 MR/MR angio MR brain wo/w con: R47.01 MR angio MR brain wo/w con 07/14/2024 2:13 PM SIGN OF SYMPTOMS: Migraine headaches PROTOCOL: Multiplanar multisequence MR images of the brain were obtained with and without IV contrast. Images include noncontrast 3-D chne-vp-fnijzy MRA with 3-D reconstructions CONTRAST: 20 mL [...] Cornelius Bernal M.D.07/14/2024 5:22 PM Dictation Location: [place] [address] Transcribed By: [facility] 07/14/24 1722 Dictated By: Cornelius Bernal II, MD 07/14/24 1716 Signed By: 07/14/24 1722 Normal [facility] MR angio neck wo conon 07-14 MR angio neck wo con [facility] [place] [address] MRI Report Signed Patient: Doroteo Sharif MR#: [id number] : 1985 Acct:[id number] Age/Sex: 39 / M ADM Date: 07/14/24 Loc: MR Room: Type: [facility] Attending Dr: Kristy LYONS Copies to: ELOY Reich Ordering Provider: Kristy Grossman APRN-AJITH-Holley Date of Service: 07/14/24 MR/MR angio neck wo con: R47.01 MR angio neck wo con 07/14/2024 2:13 PM SIGNS AND SYMPTOMS: Migraine headaches PROTOCOL: Axial 3-D jwgp-fo-tbdttb MRA of the neck without contrast. 3-D [...] Cornelius Bernal M.D.07/14/2024 5:07 PM Dictation Location: [place] [address] Transcribed By: [facility] 07/14/241706 Dictated By: Cornelius Bernal II, MD 07/14/241704 Signed By: 07/14/241706 Normal [facility] Troponinon 04-19-2022 Troponin, High Sens <6 Normal 0-22 [facility] Comment on above: Result Comment: High Sensitivity Troponin values cannot be compared with other Troponin methodologies. Patients with high levels of Biotin oral intake (i.e >5mg/day) may have falsely decreased Troponin levels. Samples collected within 8 hours of biotin intake may require additional information for diagnosis. Performed By: #### T MICHELL #### [facility] [address] [place] [address] Mortgage Consultant: Bonilla Wilson MD Troponin, High Sensitivity <6 0 - 22 ng/L [facility] Comment on above: High Sensitivity Troponin values cannot be compared with other Troponin methodologies. Patients with high levels of Biotin oral intake (i.e >5mg/day) may have falsely decreased Troponin levels. Samples collected within 8 hours of biotin intake may require additional information for diagnosis. [facility] XR CHEST PORTABLEon 04-19-20 XR CHEST [...] Eduardo Mcclure MD 04/19/22 Final result Normal [facility] No acute process[facility] ONE XRAY VIEW OF THE CHEST 04/19/2022 4:25 pm COMPARISON: None. HISTORY: ORDERING SYSTEM PROVIDED HISTORY: Intermittent chest pain TECHNOLOGIST PROVIDED HISTORY: Intermittent chest pain FINDINGS: The lungs are without acute focal process. There is no effusion or pneumothorax. The cardiomediastinal silhouette is without acute process. The osseous structures are without acute process. [facility] Eduardo Mcclure MD - 04/19/2022 EXAMINATION: [...] without acute process. IMPRESSION: No acute process. [email or web address] Phone: Radiology Study observation (narrative) [facility] [employer] Phone: XR CHEST PORTABLEOrdered By: Eduardo Mcclure on 04-19-2022 [facility] [employer] Phone: CBC AUTO DIFFon 04-15-2022 BASO # 0.1 103/ul Normal 0.0-0.1 [facility] Comment on above: Performed By: #### C BC ####[facility] [address] [place], [place] [address]AhAlicia Chioma Agosto Basophils/100 WBC (Bld) 0.7 % Normal 0.2-2.0 [facility] Comment on above: Performed By: #### C BC ####[facility] [address] [place] [id number]. Chioma Agosto EO # 0.2 103/ul Normal 0.0-0.7 [facility] Comment on above: Performed By: #### C BC ####[facility] [address] [place] [address]Dr. Chioma Agosto Eosinophils/100 WBC (Bld) 1.8 % Normal 0.9-7.0 [facility] Comment on above: Performed By: #### C BC ####[facility] [address] [place], [place] [address]Dr. Chioma Agosto Erythrocyte distribution width (RBC) [Ratio] 13.0 % Normal 11.0-15.0 [facility] Comment on above: Performed By: #### C BC ####[facility] [address] [place], [place] [address]Dr. Chioma Agosto Hematocrit (Bld) [Volume fraction] 44.9 % Normal 42.0-54.0 [facility] Comment on above: Performed By: #### C BC ####[facility] [address] [place], [place] [address]Dr. Chioma Agosto Hemoglobin (Bld) [Mass/Vol] 14.9 g/dL Normal 14.0-18.0 [facility] Comment on above: Performed By: #### C BC ####[facility] [address] [place], [place] [address]Dr. Chioma Agosto IG # 0.03 10e3/ul Normal 0.00-0.03 [facility] Comment on above: Performed By: #### C BC ####[facility] [address] [place], [place] [address]Dr. Chioma Agosto IG % 0.4 % Normal 0.0-0.5 [facility] Comment on above: Performed By: #### C BC ####[facility] [address] [place], [place] [address]Dr. Chioma Agosto LYMPH # 2.6 103/ul Normal 1.2-3.8 [facility] Comment on above: Performed By: #### C BC ####[facility] [address] [place], [place] [address]Dr. Chioma Agosto Lymphocytes/100 WBC (Bld) 31.8 % Normal 20.5-60.0 [facility] Comment on above: Performed By: #### C BC ####[facility] [address] [place] [address]Dr. Chioma Agosto MANUAL DIFF REQ NO Normal [facility] Comment on above: Performed By: #### C BC ####[facility] [address] [place] [address]Dr. Chioma Agosto MCH (RBC) [Entitic mass] 31.8 pg Normal 25.9-34.0 [facility] Comment on above: Performed By: #### C BC ####[facility] [address] [place] [address]Dr. Chioma Agosto MCHC (RBC) [Mass/Vol] 33.2 g/dL Normal 29.9-35.2 [facility] Comment on above: Performed By: #### C BC ####[facility] [address] [place] [address]Dr. Chioma Agosto MCV (RBC) [Entitic vol] 95.7 fL Critically high 80.0-94.0 [facility] Comment on above: Performed By: #### C BC ####[facility] [address] [place] [address]Dr. Chioma Agosto MONO # 0.6 103/ul Normal 0.3-0.8 [facility] Comment on above: Performed By: #### C BC ####[facility] [address] [place] [address]Dr. Chioma Agosto Monocytes/100 WBC (Bld) 7.3 % Normal 1.7-12.0 [facility] Comment on above: Performed By: #### C BC ####[facility] [address] [place] [address]Dr. Chioma Agosto NEUT # 4.8 103/ul Normal 1.4-6.5 [facility] Comment on above: Performed By: #### C BC ####[facility] [address] [place] [address]Dr. Chioma Agosto Neutrophils/100 WBC (Bld) 58.0 % Normal 43.0-75.0 [facility] Comment on above: Performed By: #### C BC ####[facility] [address] [place] [address]Dr. Chioma Agosto Platelet mean volume (Bld) [Entitic vol] 10.7 fL Normal 9.5-13.5 [facility] Comment on above: Performed By: #### C BC ####[facility] [address] [place] [address]Dr. Chioma Agosto PLT 213 103/ul Normal 150-450 [facility] Comment on above: Performed By: #### C BC ####[facility] [address] [place] [address]Dr. Chioma Agosto RBC 4.69 106/ul Critically low 4.70-6.10 [facility] Comment on above: Performed By: #### C BC ####[facility] [address] [place] [address]Dr. Chioma Agosto WBC 8.2 103/ul Normal 4.0-11.0 [facility] Comment on above: Performed By: #### C BC ####[facility] [address] [place] [address]DrAlicia Agosto LIPASEon 04-15-2022 Lipase [Catalytic activity/Vol] 47.0 U/L Critically low 73.0-393.0 [facility] Comment on above: Performed By: #### C MP, HSTROPN, LIPA, MG #### [facility] [address] [place] [address] Dr. Chioma Agosto MAGNESIUMon 04-15-2022 Magnesium [Mass/Vol] 2.0 mg/dL Normal 1.8-2.4 [facility] Comment on above: Performed By: #### C MP, HSTROPN, LIPA, MG #### [facility] [address] [place] [address] Dr. Chioma Agosto PROF 14(COMP METB)on 022 Albumin [Mass/Vol] 4.2 g/dL Normal 3.4-5.0 [facility] Comment on above: Performed By: #### C MP, HSTROPN, LIPA, MG #### [facility] [address] [place] [address] Dr. Chioma Agosto Albumin/Globulin [Mass ratio] 1.4 {ratio} Normal [facility] Comment on above: Performed By: #### C MP, HSTROPN, LIPA, MG #### [facility] [address] [place] [address] Dr. Chioma Agosto ALP [Catalytic activity/Vol] 82 U/L Normal 46-116 [facility] Comment on above: Performed By: #### C MP, HSTROPN, LIPA, MG #### [facility] [address] [place] [address] Dr. Chioma Agosto ALT [Catalytic activity/Vol] 31 U/L Normal 16-63 [facility] Comment on above: Performed By: #### C MP, HSTROPN, LIPA, MG #### [facility] [address] [place] [address] Dr. Chioma Agosto Anion gap [Moles/Vol] 14.1 mmol/L Normal [facility] Comment on above: Performed By: #### C MP, HSTROPN, LIPA, MG #### [facility] [address] [place] [address] Dr. Chioma Agosto AST [Catalytic activity/Vol] 20 U/L Normal 15-37 [facility] Comment on above: Performed By: #### C MP, HSTROPN, LIPA, MG #### [facility] [address] [place] [address] Dr. Chioma Agosto Bilirubin [Mass/Vol] 0.6 mg/dL Normal 0.2-1.0 [facility] Comment on above: Performed By: #### C MP, HSTROPN, LIPA, MG #### [facility] [address] [place] [address] Dr. Chioma Agosto Calcium [Mass/Vol] 9.3 mg/dL Normal 8.5-10.1 [facility] Comment on above: Performed By: #### C MP, HSTROPN, LIPA, MG #### [facility] [address] [address] [address] Chioma Agosto Chloride [Moles/Vol] 105 mmol/L Normal 98-107 [facility] Comment on above: Performed By: #### C MP, HSTROPN, LIPA, MG #### [facility] [address] [address] [address] Chioma Agosto CO2 [Moles/Vol] 25.6 mmol/L Normal 21.0-32.0 [facility] Comment on above: Performed By: #### C MP, HSTROPN, LIPA, MG #### [facility] [address] [place] [address] Dr. Chioma Agosto Creatinine [Mass/Vol] 0.87 mg/dL Normal 0.70-1.30 [facility] Comment on above: Performed By: #### C MP, HSTROPN, LIPA, MG #### [facility] [address] [place] [address] Dr. Chioma Agosto EGFR-AF BENINESE >60 Normal >=60 [facility] Comment on above: Performed By: #### C MP, HSTROPN, LIPA, MG #### [facility] [address] [place] [address] Dr. Chioma Agosto EGFR-NON AF BENINESE >60 Normal >=60 [facility] Comment on above: Performed By: #### C MP, HSTROPN, LIPA, MG #### [facility] [address] [place] [address] Dr. Chioma Agosto Globulin (S) [Mass/Vol] 2.9 g/dL Normal [facility] Comment on above: Performed By: #### C MP, HSTROPN, LIPA, MG #### [facility] [address] [place] [address] Dr. Chioma Agosto Glucose [Mass/Vol] 123 mg/dL Critically high 74-106 [facility] Comment on above: Performed By: #### C MP, HSTROPN, LIPA, MG #### [facility] [address] [place] [address] Dr. Chioma Agosto Potassium [Moles/Vol] 3.7 mmol/L Normal 3.5-5.1 [facility] Comment on above: Performed By: #### C MP, HSTROPN, LIPA, MG #### [facility] [address] [place] [address] Dr. Chioma Agosto Protein [Mass/Vol] 7.1 g/dL Normal 6.4-8.2 [facility] Comment on above: Performed By: #### C MP, HSTROPN, LIPA, MG #### [facility] [address] [place] [address] Dr. Chioma Agosto Sodium [Moles/Vol] 141 mmol/L Normal 136-145 [facility] Comment on above: Performed By: #### C MP, HSTROPN, LIPA, MG #### [facility] [address] [place] [address] Dr. Chioma Agosto Urea nitrogen [Mass/Vol] 14.0 mg/dL Normal 7.0-18.0 [facility] Comment on above: Performed By: #### C MP, HSTROPN, LIPA, MG #### [facility] [address] [place] [address] Dr. Chioma Agosto Urea nitrogen/Creatinine [Mass ratio] 16.1 mg/mg Normal [facility] Comment on above: Performed By: #### C MP, HSTROPN, LIPA, MG #### [facility] [address] [place] [address] Dr. Chioma Agosto TROPONIN, HIGH SENSITIVITYon 04-15-2022 HSTROP 4.6 pg/mL Normal 4.0-76.1 [facility] Comment on above: Result Comment: CUT- OFF POINTS HAVE BEEN ESTABLISHED BASED ON THE FOURTH UNIVERSAL DEFINITIONS OF MYOCARDIAL INFARCTION. THE UPPER REFERENCE LIMIT (URL) OF TROPONIN, DEFINED THE 99TH PERCENTILE OF cTnI DISTRIBUTION IN A REFERENCE POPULATION, HAS BEEN CONFIRMED THE DECISION THRESHOLD FOR [place] DIAGNOSIS. Performed By: #### H STROPN #### [facility] [address] [place] [address] Dr. Chioma Agosto HSTROP 4.8 pg/mL Normal 4.0-76.1 [facility] Comment on above: Result Comment: CUT- OFF POINTS HAVE BEEN ESTABLISHED BASED ON THE FOURTH UNIVERSAL DEFINITIONS OF MYOCARDIAL INFARCTION. THE UPPER REFERENCE LIMIT (URL) OF TROPONIN, DEFINED THE 99TH PERCENTILE OF cTnI DISTRIBUTION IN A REFERENCE POPULATION, HAS BEEN CONFIRMED THE DECISION THRESHOLD FOR [place] DIAGNOSIS. Performed By: #### C MP, HSTROPN, LIPA, MG #### [facility] [address] [place] [address] Dr. Chioma Agosto XR CHEST 1 Von [...] CLIFTON GONZALEZ Date: 2022-04-15 19:29 Normal [facility] CBC AUTO DIFFon 03-19-2022 BASO # 0.1 103/ul Normal 0.0-0.1 [facility] Comment on above: Performed By: #### C BC #### [facility] [address] [place] [address] Dr. Chioma Agosto Basophils/100 WBC (Bld) 0.9 % Normal 0.2-2.0 [facility] Comment on above: Performed By: #### C BC #### [facility] [address] [place] [address] Dr. Chioma Agosto EO # 0.2 103/ul Normal 0.0-0.7 [facility] Comment on above: Performed By: #### C BC #### [facility] [address] [place] [address] Dr. Chioma Agosto Eosinophils/100 WBC (Bld) 4.1 % Normal 0.9-7.0 [facility] Comment on above: Performed By: #### C BC #### [facility] [address] [place] [address] Dr. Chioma Agosto Erythrocyte distribution width (RBC) [Ratio] 13.1 % Normal 11.0-15.0 [facility] Comment on above: Performed By: #### C BC #### [facility] [address] [place] [address] Dr. Chioma Agosto Hematocrit (Bld) [Volume fraction] 42.7 % Normal 42.0-54.0 [facility] Comment on above: Performed By: #### C BC #### [facility] [address] [place] [address] Dr. Chioma Agosto Hemoglobin (Bld) [Mass/Vol] 14.6 g/dL Normal 14.0-18.0 [facility] Comment on above: Performed By: #### C BC #### [facility] [address] [place] [address] Dr. Chioma Agosto IG # 0.01 10e3/ul Normal 0.00-0.03 [facility] Comment on above: Performed By: #### C BC #### [facility] [address] [place] [address] Dr. Chioma Agosto IG % 0.2 % Normal 0.0-0.5 [facility] Comment on above: Performed By: #### C BC #### [facility] [address] [place] [address] Dr. Chioma Agosto LYMPH # 2.0 103/ul Normal 1.2-3.8 [facility] Comment on above: Performed By: #### C BC #### [facility] [address] [place] [address] Dr. Chioma Agosto Lymphocytes/100 WBC (Bld) 34.5 % Normal 20.5-60.0 [facility] Comment on above: Performed By: #### C BC #### [facility] [address] [place] [address] Dr. Chioma Agosto MANUAL DIFF REQ NO Normal [facility] Comment on above: Performed By: #### C BC #### [facility] [address] [place] [address] Dr. Chioma Agosto MCH (RBC) [Entitic mass] 31.9 pg Normal 25.9-34.0 [facility] Comment on above: Performed By: #### C BC #### [facility] [address] [place] [address] Dr. Chioma Agosto MCHC (RBC) [Mass/Vol] 34.2 g/dL Normal 29.9-35.2 [facility] Comment on above: Performed By: #### C BC #### [facility] [address] [place] [address] Dr. Chioma Agosto MCV (RBC) [Entitic vol] 93.2 fL Normal 80.0-94.0 [facility] Comment on above: Performed By: #### C BC #### [facility] [address] [place] [address] Dr. Chioma Agosto MONO # 0.5 103/ul Normal 0.3-0.8 [facility] Comment on above: Performed By: #### C BC #### [facility] [address] [place] [address] Dr. Chioma Agosto Monocytes/100 WBC (Bld) 8.9 % Normal 1.7-12.0 [facility] Comment on above: Performed By: #### C BC #### [facility] [address] [place] [address] Dr. Chioma Agosto NEUT # 3.0 103/ul Normal 1.4-6.5 [facility] Comment on above: Performed By: #### C BC #### [facility] [address] [place] [address] Dr. Chioma Agosto Neutrophils/100 WBC (Bld) 51.4 % Normal 43.0-75.0 [facility] Comment on above: Performed By: #### C BC #### [facility] [address] [place] [address] Dr. Chioma Agosto Platelet mean volume (Bld) [Entitic vol] 10.2 fL Normal 9.5-13.5 [facility] Comment on above: Performed By: #### C BC #### [facility] [address] [address] [address] Chioma Agosto PLT 191 103/ul Normal 150-450 [facility] Comment on above: Performed By: #### C BC #### [facility] [address] [address] [address] Chioma Agosto RBC 4.58 106/ul Critically low 4.70-6.10 [facility] Comment on above: Performed By: #### C BC #### [facility] [address] [address] [address] Chioma Agosto WBC 5.8 103/ul Normal 4.0-11.0 [facility] Comment on above: Performed By: #### C BC #### [facility] [address] [address] [address] Chioma Agosto PROF 14(COMP METB)on 022 Albumin [Mass/Vol] 3.9 g/dL Normal 3.4-5.0 [facility] Comment on above: Performed By: #### H ANNAMARIA, CMP ####[facility] [address] [address]DrAlicia Agosto Albumin/Globulin [Mass ratio] 1.3 {ratio} Normal [facility] Comment on above: Performed By: #### H ANNAMARIA, CMP ####[facility] [address] [address]DrAlicia Agosto ALP [Catalytic activity/Vol] 101 U/L Normal 46-116 [facility] Comment on above: Performed By: #### H ANNAMARIA, CMP ####[facility] [address] [address]DrAlicia Agosto ALT [Catalytic activity/Vol] 38 U/L Normal 16-63 [facility] Comment on above: Performed By: #### H ANNAMARIA, CMP ####[facility] [address] [address]DrAlicia Agosto Anion gap [Moles/Vol] 11.4 mmol/L Normal [facility] Comment on above: Performed By: #### H ANNAMARIA, CMP ####[facility] [address] [address]Dr. Chioma Agosto AST [Catalytic activity/Vol] 17 U/L Normal 15-37 [facility] Comment on above: Performed By: #### H ANNAMARIA, CMP ####[facility] [address] [address]Dr. Chioma Agosto Bilirubin [Mass/Vol] 0.2 mg/dL Normal 0.2-1.0 [facility] Comment on above: Performed By: #### H ANNAMARIA, CMP ####[facility] [address] [place], [place] [address]Dr. Chioma Agosto Calcium [Mass/Vol] 8.9 mg/dL Normal 8.5-10.1 [facility] Comment on above: Performed By: #### H ANNAMARIA, CMP ####[facility] [address] [place], [place] [address]Dr. Chioma Agosto Chloride [Moles/Vol] 108 mmol/L Critically high 98-107 [facility] Comment on above: Performed By: #### Marlen YIN, CMP ####[facility] [address] [place], [place] [address]Dr. Chioma Agosto CO2 [Moles/Vol] 25.6 mmol/L Normal 21.0-32.0 [facility] Comment on above: Performed By: #### Marlen YIN, CMP ####[facility] [address] [place], [place] [address]Dr. Chioma Agosto Creatinine [Mass/Vol] 0.77 mg/dL Normal 0.70-1.30 [facility] Comment on above: Performed By: #### Marlen YIN, CMP ####[facility] [address] [address]Dr. Chioma Agosto EGFR-AF BENINESE >60 Normal >=60 [facility] Comment on above: Performed By: #### H ANNAMARIA, CMP ####[facility] [address] [place], [place] [address]Dr. Chioma Agosto EGFR-NON AF BENINESE >60 Normal >=60 [facility] Comment on above: Performed By: #### Marlen YIN, CMP ####[facility] [address] [address]Dr. Chioma Agosto Globulin (S) [Mass/Vol] 2.9 g/dL Normal [facility] Comment on above: Performed By: #### H ANNAMARIA, CMP ####[facility] [address] [place], [place] [address]Dr. Chioma Agosto Glucose [Mass/Vol] 98 mg/dL Normal 74-106 [facility] Comment on above: Performed By: #### H ANNAMARIA, CMP ####[facility] [address] [place], [place] [address]Dr. Chioma Agosto Potassium [Moles/Vol] 4.0 mmol/L Normal 3.5-5.1 [facility] Comment on above: Performed By: #### H ANNAMARIA, CMP ####[facility] [address] [place], [place] [address]Dr. Chioma Agosto Protein [Mass/Vol] 6.8 g/dL Normal 6.4-8.2 [facility] Comment on above: Performed By: #### H ANNAMARIA, CMP ####[facility] [address] [place], [place] [address]Dr. Chioma Agosto Sodium [Moles/Vol] 141 mmol/L Normal 136-145 [facility] Comment on above: Performed By: #### H ANNAMARIA, CMP ####[facility] [address] [place], [place] [address]Dr. Chioma Agosto Urea nitrogen [Mass/Vol] 16.0 mg/dL Normal 7.0-18.0 [facility] Comment on above: Performed By: #### H ANNAMARIA, CMP ####[facility] [address] [place], [place] [address]Dr. Jeaniejason Agosto Urea nitrogen/Creatinine [Mass ratio] 20.8 mg/mg Normal [facility] Comment on above: Performed By: #### H ANNAMARIA, CMP ####[facility] [address] [place], [place] [address]Dr. Chioma Agosto TROPONIN, HIGH SENSITIVITYon 03-19-2022 HSTROP <4.0 Normal 4.0-76.1 [facility] Comment on above: Result Comment: CUT- OFF POINTS HAVE BEEN ESTABLISHED BASED ON THE FOURTH UNIVERSAL DEFINITIONS OF MYOCARDIAL INFARCTION. THE UPPER REFERENCE LIMIT (URL) OF TROPONIN, DEFINED THE 99TH PERCENTILE OF cTnI DISTRIBUTION IN A REFERENCE POPULATION, HAS BEEN CONFIRMED THE DECISION THRESHOLD FOR [place] DIAGNOSIS. Performed By: #### H STROPN, CMP #### [facility] [address] [place], [place] [address] Dr. Chioma Agosto XR CHEST 1 Von [...] IVAN MAY Date: 2022-03-19 21:07 Normal [facility] BNPon 09-12-2021 Natriuretic peptide B (Bld) [Mass/Vol] 10.0 pg/mL Normal <=450.0 [facility] Comment on above: Performed By: #### C MP, BNP, HSTROPN ####[facility] [address] [address]Dr. Chioma Agosto CBC AUTO DIFFon 09-12-2021 BASO # 0.1 103/ul Normal 0.0-0.1 [facility] Comment on above: Performed By: #### C BC ####[facility] [address] [id number]. Chioma Agosto Basophils/100 WBC (Bld) 0.7 % Normal 0.2-2.0 [facility] Comment on above: Performed By: #### C BC ####[facility] [address] [address]Dr. Chioma Agosto EO # 0.3 103/ul Normal 0.0-0.7 [facility] Comment on above: Performed By: #### C BC ####[facility] [address] [address]Dr. Chioma Agosto Eosinophils/100 WBC (Bld) 3.4 % Normal 0.9-7.0 [facility] Comment on above: Performed By: #### C BC ####[facility] [address] [place], [place] [address]Dr. Jeaniejason Agosto Erythrocyte distribution width (RBC) [Ratio] 13.7 % Normal 11.0-15.0 [facility] Comment on above: Performed By: #### C BC ####[facility] [address] [place], [place] [address]Dr. Chioma Agosto Hematocrit (Bld) [Volume fraction] 48.9 % Normal 42.0-54.0 [facility] Comment on above: Performed By: #### C BC ####[facility] [address] [place], [place] [address]Dr. Chioma Agosto Hemoglobin (Bld) [Mass/Vol] 16.1 g/dL Normal 14.0-18.0 [facility] Comment on above: Performed By: #### C BC ####[facility] [address] [place], [place] [address]Dr. Chioma Agosto IG # 0.02 10e3/ul Normal 0.00-0.03 [facility] Comment on above: Performed By: #### C BC ####[facility] [address] [place], [place] [address]Dr. Chioma Agosto IG % 0.2 % Normal 0.0-0.5 [facility] Comment on above: Performed By: #### C BC ####[facility] [address] [place], [place] [address]Dr. Chioma Agosto LYMPH # 2.6 103/ul Normal 1.2-3.8 [facility] Comment on above: Performed By: #### C BC ####[facility] [address] [place], [place] [address]Dr. Chioma Agosto Lymphocytes/100 WBC (Bld) 30.7 % Normal 20.5-60.0 [facility] Comment on above: Performed By: #### C BC ####[facility] [address] [place], [place] [address]DrAlicia Agosto MANUAL DIFF REQ NO Normal [facility] Comment on above: Performed By: #### C BC ####[facility] [address] [address]DrAlicia Agosto MCH (RBC) [Entitic mass] 31.8 pg Normal 25.9-34.0 [facility] Comment on above: Performed By: #### C BC ####[facility] [address] [place], [place] [address]DrAlicia Agosto MCHC (RBC) [Mass/Vol] 32.9 g/dL Normal 29.9-35.2 [facility] Comment on above: Performed By: #### C BC ####[facility] [address] [place], [place] [address]DrAlicia Agosto MCV (RBC) [Entitic vol] 96.4 fL Critically high 80.0-94.0 [facility] Comment on above: Performed By: #### C BC ####[facility] [address] [place], [place] [address]DrAlicia Agosto MONO # 1.0 103/ul Critically high 0.3-0.8 [facility] Comment on above: Performed By: #### C BC ####[facility] [address] [place], [place] [address]DrAlicia Agosto Monocytes/100 WBC (Bld) 11.2 % Normal 1.7-12.0 [facility] Comment on above: Performed By: #### C BC ####[facility] [address] [place], [place] [address]DrAlicia Agosto NEUT # 4.6 103/ul Normal 1.4-6.5 [facility] Comment on above: Performed By: #### C BC ####[facility] [address] [place], [place] [address]DrAlicia Agosto Neutrophils/100 WBC (Bld) 53.8 % Normal 43.0-75.0 [facility] Comment on above: Performed By: #### C BC ####[facility] [address] [place], [place] [address]DrAlicia Agosto Platelet mean volume (Bld) [Entitic vol] 10.5 fL Normal 9.5-13.5 [facility] Comment on above: Performed By: #### C BC ####[facility] [address] [place], [place] [address]Vr. Chioma Agosto PLT 247 103/ul Normal 150-450 [facility] Comment on above: Performed By: #### C BC ####[facility] [address] [place], [place] [address]Ud. Chioma Agosto RBC 5.07 106/ul Normal 4.70-6.10 [facility] Comment on above: Performed By: #### C BC ####[facility] [address] [place], [place] [address]Li. Chioma Agosto WBC 8.6 103/ul Normal 4.0-11.0 [facility] Comment on above: Performed By: #### C BC ####[facility] [address] [place], [place] [address]UmAlicia Chioma Agosto D-DIMERon 09-12-2021 D-DIMER 0.28 mg/L FEU Normal 0.19-0.50 [facility] Comment on above: Performed By: #### D DIM ####[facility] [address] [place], [place] [address]Xm. Chioma Agosto D-DIMER COMMENTS SEE BELOW Normal [facility] Comment on above: Result Comment: Incr eases [...] generalized hospitalization. Performed By: #### D DIM ####[facility] [address] [place], [place] [address]YzAlicia Agosto PROF 14(COMP METB)on 021 Albumin [Mass/Vol] 4.3 g/dL Normal 3.5-5.0 [facility] Comment on above: Performed By: #### C MP, BNP, HSTROPN ####[facility] [address] [address]Dr. Chioma Agosto Albumin/Globulin [Mass ratio] 1.2 {ratio} Normal [facility] Comment on above: Performed By: #### C MP, BNP, HSTROPN ####[facility] [address] [place], [place] [address]Dr. Chioma Agosto ALP [Catalytic activity/Vol] 118 U/L Normal 38-126 [facility] Comment on above: Performed By: #### C MP, BNP, HSTROPN ####[facility] [address] [place], [place] [address]Dr. Chioma Agosto ALT [Catalytic activity/Vol] 48 U/L Normal 21-72 [facility] Comment on above: Performed By: #### C MP, BNP, HSTROPN ####[facility] [address] [place], [place] [address]Dr. Chioma Agosto Anion gap [Moles/Vol] 10.3 mmol/L Normal [facility] Comment on above: Performed By: #### C MP, BNP, HSTROPN ####[facility] [address] [place], [place] [address]Dr. Chioma Agosto AST [Catalytic activity/Vol] 17 U/L Normal 17-59 [facility] Comment on above: Performed By: #### C MP, BNP, HSTROPN ####[facility] [address] [place], [place] [address]Dr. Chioma Agosto Bilirubin [Mass/Vol] 0.3 mg/dL Normal 0.2-1.3 [facility] Comment on above: Performed By: #### C MP, BNP, HSTROPN ####[facility] [address] [place], [place] [address]Dr. Chioma Agosto Calcium [Mass/Vol] 9.7 mg/dL Normal 8.4-10.2 [facility] Comment on above: Performed By: #### C MP, BNP, HSTROPN ####[facility] [address] [address]Dr. Chioma Agosto Chloride [Moles/Vol] 100 mmol/L Normal 98-107 [facility] Comment on above: Performed By: #### C MP, BNP, HSTROPN ####[facility] [address] [address]Dr. Chioma Agosto CO2 [Moles/Vol] 29.0 mmol/L Normal 22.0-30.0 [facility] Comment on above: Performed By: #### C MP, BNP, HSTROPN ####[facility] [address] [address]Dr. Chioma Agosto Creatinine [Mass/Vol] 0.86 mg/dL Normal 0.66-1.25 [facility] Comment on above: Performed By: #### C MP, BNP, HSTROPN ####[facility] [address]keysx[address] [place], [place] [address]Dr. Chioma Agosto EGFR-AF BENINESE >60 Normal >=60 [facility] Comment on above: Performed By: #### C MP, BNP, HSTROPN ####[facility] [address] [place], [place] [address]Dr. Chioma Agosto EGFR-NON AF BENINESE >60 Normal >=60 [facility] Comment on above: Performed By: #### C MP, BNP, HSTROPN ####[facility] [address] [address]Dr. Chioma Agosto Globulin (S) [Mass/Vol] 3.6 g/dL Normal [facility] Comment on above: Performed By: #### C MP, BNP, HSTROPN ####[facility] [address] [address]Dr. Chioma Agosto Glucose [Mass/Vol] 79 mg/dL Normal 74-106 [facility] Comment on above: Performed By: #### C MP, BNP, HSTROPN ####[facility] [address] [address]Dr. Chioma Agosto Potassium [Moles/Vol] 4.3 mmol/L Normal 3.4-5.0 [facility] Comment on above: Performed By: #### C MP, BNP, HSTROPN ####[facility] [address] [address]Dr. Chioma Agosto Protein [Mass/Vol] 7.9 g/dL Normal 6.1-8.2 [facility] Comment on above: Performed By: #### C MP, BNP, HSTROPN ####[facility] [address] [address]Dr. Chioma Agosto Sodium [Moles/Vol] 135 mmol/L Critically low 137-145 [facility] Comment on above: Performed By: #### C MP, BNP, HSTROPN ####[facility] [address] [address]Dr. Chioma Agosto Urea nitrogen [Mass/Vol] 21.0 mg/dL Critically high 9.0-20.0 [facility] Comment on above: Performed By: #### C MP, BNP, HSTROPN ####[facility] [address] [place], [place] [address]Dr. Chioma Agosto Urea nitrogen/Creatinine [Mass ratio] 24.4 mg/mg Normal [facility] Comment on above: Performed By: #### C MP, BNP, HSTROPN ####[facility] [id number] [address] [place], [place] [address]Dr. Chioma Agosto TROPONIN, HIGH SENSITIVITYon 09-12-2021 HSTROP 5.2 pg/mL Normal 4.0-42.2 [facility] Comment on above: Result Comment: CUT- OFF POINTS HAVE BEEN ESTABLISHED BASED ON THE FOURTH UNIVERSAL DEFINITIONS OF MYOCARDIAL INFARCTION. THE UPPER REFERENCE LIMIT (URL) OF TROPONIN, DEFINED THE 99TH PERCENTILE OF cTnI DISTRIBUTION IN A REFERENCE POPULATION, HAS BEEN CONFIRMED THE DECISION THRESHOLD FOR [place] DIAGNOSIS. Performed By: #### C MP, BNP, HSTROPN ####[facility] [id number] [place] [address]Dr. Chioma Agosto XR CHEST 1 Von 09-12-2021 [...] by: ANTHONY SOMMER Date: 2021-09-12 17:53 Normal [facility] D-DIMERon 07-18-2021 D-DIMER 0.49 mg/L FEU Normal 0.19-0.50 [facility] Comment on above: Performed By: #### D DIM ####[facility] [id number] [place], [place] [address]GuAlicia Agosto D-DIMER COMMENTS SEE BELOW Normal [facility] Comment on above: Result Comment: Incr eases [...] generalized hospitalization. Performed By: #### D DIM ####[facility] [id number] [place], [place] [address]Mj. Chioma Agosto XR CHEST 1 Von 07-18-2021 [...] by: ANTHONY SOMMER Date: 2021-07-18 19:13 Normal [facility] Vital Signs Date Time Vital Sign Value Performing Clinician Facility 03-30-2025 10:32-0400 Body mass index (BMI) [Ratio] 36.67 kg/m2 Kristy Grossman NP Work Phone: [facility] 03-30-2025 10:32-0400 Body weight 109.41 kg Kristy Grossman [employer]PER[employer] Work Phone: [facility] 03-30-2025 10:32-0400 Diastolic blood pressure 86 mm[Hg] Kristy Grossman [employer] SUPERVISOR Work Phone: [facility] 03-30-2025 10:32-0400 Heart rate 85 /min Kristy Grossman [employer] SUPERVISOR Work Phone: [facility] 03-30-2025 10:32-0400 SaO2% (BldA) [Mass fraction] 97 % Kristy Grossman [employer]ACH[employer] SUPERVISOR Work Phone: [facility] 03-30-2025 10:32-0400 Systolic blood pressure 134 mm[Hg] Kristy Grossman [employer] SUPERVISOR Work Phone: [facility] 10-13-2024 13:19-0500 Body height 175.3 cm Kristy Grossman [employer] SUPERVISOR Work Phone: [facility] 10-13-2024 13:19-0500 Body mass index (BMI) [Ratio] 35 kg/m2 Kristy Grossman [employer] SUPERVISOR Work Phone: [facility] 10-13-2024 13:19-0500 Body weight 107.5 kg Kristy Grossman [employer] SUPERVISOR Work Phone: [facility] 10-13-2024 13:19-0500 Diastolic blood pressure 78 mm[Hg] Kristy Grossman [employer] SUPERVISOR Work Phone: [facility] 10-13-2024 13:19-0500 Heart rate 87 /min Kristy Grossman [employer] SUPERVISOR Work Phone: [facility] 10-13-2024 13:19-0500 SaO2% (BldA) [Mass fraction] 97 % Kristy Grossman [employer] SUPERVISOR Work Phone: [facility] 10-13-2024 13:19-0500 Systolic blood pressure 124 mm[Hg] Kristy Grossman [employer]OM[employer]ACH[employer] SUPERVISOR Work Phone: [facility] 08-31-2024 09:32-0400 Body height 175.3 cm Olga Chilel DO Work Phone: [facility] 08-31-2024 09:32-0400 Body mass index (BMI) [Ratio] 34.11 kg/m2 Olga Chilel DO Work Phone: [facility] 08-31-2024 09:32-0400 Body weight 104.78 kg Olga Chilel DO Work Phone: [facility] 08-17-2024 13:18-0400 Body height 175.3 cm Kristy Grossman [employer] SUPERVISOR Work Phone: [facility] 08-17-2024 13:18-0400 Body mass index (BMI) [Ratio] 33.82 kg/m2 Kristy Grossman [employer] SUPERVISOR Work Phone: [facility] 08-17-2024 13:18-0400 Body weight 103.87 kg Kristy Grossman [employer] SUPERVISOR Work Phone: [facility] 08-17-2024 13:18-0400 Diastolic blood pressure 72 mm[Hg] Kristy Grossman [employer] SUPERVISOR Work Phone: [facility] 08-17-2024 13:18-0400 Heart rate 83 /min Kristy Grossman [employer] SUPERVISOR Work Phone: [facility] 08-17-2024 13:18-0400 SaO2% (BldA) [Mass fraction] 97 % Kristy Grossman [employer] SUPERVISOR Work Phone: [facility] 08-17-2024 13:18-0400 Systolic blood pressure 116 mm[Hg] Kristy Grossman [employer] SUPERVISOR Work Phone: [facility] 07-14-2024 14:31-0400 Body height 175.26 cm DO Travis Rodriguezring Work Phone: [facility] 07-14-2024 14:31-0400 Body weight 104.32 kg DO Travis Elmore Work Phone: [facility] 06-16-2024 13:17-0400 Body height 175.3 cm Kristy Grossman [employer] SUPERVISOR Work Phone: [facility] 06-16-2024 13:17-0400 Body mass index (BMI) [Ratio] 34.53 kg/m2 Kristy Grossman [employer] SUPERVISOR Work Phone: [facility] 06-16-2024 13:17-0400 Body weight 106.05 kg Kristy Grossman [employer] SUPERVISOR Work Phone: [facility] 06-16-2024 13:17-0400 Diastolic blood pressure 85 mm[Hg] Kristy Grossman [employer] SUPERVISOR Work Phone: [facility] 06-16-2024 13:17-0400 Heart rate 69 /min Kristy Grossman [employer] SUPERVISOR Work Phone: [facility] 06-16-2024 13:17-0400 SaO2% (BldA) [Mass fraction] 95 % Kristy Grossman [employer] SUPERVISOR Work Phone: [facility] 06-16-2024 13:17-0400 Systolic blood pressure 129 mm[Hg] Kristy Grossman [employer] SUPERVISOR Work Phone: [facility] 07-21-2022 06:44-0400 Body height 175.26 cm DO Rory Moya Work Phone: [facility] 07-21-2022 06:44-0400 Body weight 86.18 kg DO Rory Moya Work Phone: [facility] 04-19-2022 16:44-0400 Diastolic blood pressure 81 mm[Hg] Ivy [facility] 04-19-2022 16:44-0400 Heart rate 88 /min Ivy Gomez Work Phone: [facility] [employer] 04-19-2022 16:44-0400 Respiratory rate 24 /min Ivy Gomez [facility] 04-19-2022 16:44-0400 SaO2% (BldA) [Mass fraction] 97 % Ivy Gomez Work Phone: [facility] [employer] 04-19-2022 16:44-0400 Systolic blood pressure 124 mm[Hg] Ivy Gomez Work Phone: [employer] 04-19-2022 15:58-0400 Body temperature 98.8 [degF] Ivy Gomez Work Phone: [facility] [employer] 09-01-2021 13:30-0400 Body height 175.26 cm Luana Ricksmond Other [employer] Other 09-01-2021 13:30-0400 Body mass index (BMI) [Ratio] 27.32 kg/m2 Luana Kristyn Other [employer] Other 09-01-2021 13:30-0400 Body temperature 100.1 [degF] Luana Ricksmond Other [employer] Other 09-01-2021 13:30-0400 Body weight 83.92 kg Luana Ricksmond Other [employer] Other 09-01-2021 13:30-0400 Respiratory rate 18 /min Luana Simons Other [employer] Other 09-01-2021 13:30-0400 SaO2% (BldA) [Mass fraction] 97 % Luana Ricksmond Other [employer] Other Encounters Encounter Date Encounter Type Care Provider Facility Start: 03-30-2025 End: 03-30-2025 Office outpatient visit 25 minutes Kristy Grossman [employer]PER[employer]OR Work Phone: [facility] Comment on above: Episodic migraine (C MS/HCC) (Primary Dx); Dizziness; Expressive aphasia; Intracranial hemorrhage (CMS/HCC) Start: 03-30-2025 End: 03-30-2025 ambulatory KRISTY GROSSMAN Not Available Start: 01-23-2025 End: 01-23-2025 ambulatory KRISTY GROSSMAN Not Available Start: 10-13-2024 End: 10-13-2024 Bamboo flowsheet Kristy Grossman [employer] SUPERVISOR Work Phone: [facility] Start: 10-13-2024 End: 10-13-2024 Bamboo flowsheet Kristy Grossman [employer]ACH[employer] SUPERVISOR Work Phone: [facility] Start: 10-13-2024 End: 10-13-2024 Office outpatient visit 25 minutes Kristy Grossman [employer] SUPERVISOR Work Phone: [facility] Comment on above: Episodic migraine (C MS/HCC) (Primary Dx); Dizziness; Expressive aphasia; Intracranial hemorrhage (CMS/HCC) Start: 10-13-2024 End: 10-13-2024 ambulatory KRISTY GROSSMAN Not Available Start: 09-06-2024 End: 02-23-2025 Telephone encounter Dorota Urbina [facility] Start: 09-01-2024 ambulatory IVY GOMEZ [facility] Start: 08-31-2024 End: 08-31-2024 Office outpatient new 45 minutes Olga Sukhdev Chilel DO Work Phone: [facility] Comment on above: Left inguinal hernia (Primary Dx); Abnormal CT of the abdomen; Class 1 drug-induced obesity with serious comorbidity and body mass index (BMI) of 34.0 to 34.9 in adult; Diverticular disease; Left lower quadrant abdominal pain Start: 08-31-2024 End: 08-31-2024 ambulatory OLGA CHILEL [facility] Start: 08-17-2024 End: 08-17-2024 Bamboo flowsheet Kristy Grossman [employer] SUPERVISOR Work Phone: [facility] Start: 08-17-2024 End: 08-17-2024 Bamboo flowsheet Kristy Grossman [employer] SUPERVISOR Work Phone: [facility] Start: 08-17-2024 End: 08-17-2024 Office outpatient visit 25 minutes Kristy Grossman [employer]ACH[employer] SUPERVISOR Work Phone: [facility] Comment on above: Episodic migraine (C MS/HCC) (Primary Dx); Dizziness; Expressive aphasia; Intracranial hemorrhage (CMS/HCC) Start: 08-17-2024 End: 08-17-2024 ambulatory KRISTY GROSSMAN Not Available Start: 07-19-2024 End: 07-20-2024 Telephone encounter Kristy Grossman [employer]ACH[employer] SUPERVISOR Work Phone: [facility] Start: 07-14-2024 End: 07-14-2024 Patient encounter procedure DO Travis Elmore Work Phone: [facility] [place] Work Phone: Start: 07-14-2024 End: 07-14-2024 ambulatory DO Travis Elmore Work Phone: [facility] Work Phone: Start: 06-16-2024 End: 06-16-2024 Office outpatient visit 25 minutes Kristy Jonesoll [employer]ACH[employer] SUPERVISOR Work Phone: [facility] Comment on above: Episodic migraine (C MS/HCC) (Primary Dx); Dizziness; Expressive aphasia Start: 06-16-2024 End: 06-16-2024 ambulatory KRISTY GROSSMAN Not Available Start: 07-21-2022 End: 07-21-2022 Patient encounter procedure DO Rory Moya Work Phone: [facility] Start: 04-19-2022 Emergency department patient visit IVY GOMEZ [facility] Start: 04-19-2022 End: 04-19-2022 Emergency department patient visit Ivy Gomez Work Phone: [facility] ED Comment on above: Atypical chest pain (Primary Dx); Dizziness Start: 04-15-2022 End: 04-16-[address] IVY GOMEZ Facility:[facility]1 Start: 03-19-2022 End: 03-20-[address] IVY GOMEZ Facility:[facility] Start: 09-12-2021 End: 09-12-[address] IVY GOMEZ Facility:[facility] Start: 09-01-2021 End: 09-01-2021 ambulatory Luana Kristyn Other [employer] Other Start: 09-01-2021 Office outpatient ne w 20 minutes Luana Simons [facility] Start: 07-18-2021 End: 07-18-2021 ambulatory [facility] Facility: Procedures Date Procedure Procedure Detail Performing Clinician Start: 07-14-2024 MR angiography of he ad with contrast DO Travis Elmore Work Phone: Start: 07-21-2022 MRI of head DO Esdras Moya Work Phone: Start: 04-19-2022 Radiologic exam ches t single view Erik Mora PA-C Work Phone: Start: 04-19-2022 Assay of troponin quantitative Erik Mora PA-C Work Phone: Start: 04-19-2022 Ecg routine ecg w/le ast 12 lds w/i&r Erik Mora PA-C Work Phone: Plan of Treatment Date Care Activity Detail Author Start: 09-02-2025 Tobacco Screening Tobacco Screening [facility] Start: 08-31-2025 Adult BMI Screening Adult BMI Screen ing [facility] Start: 08-31-2025 Tobacco Screening Tobacco Screening [facility] Start: 07-03-2025 Influenza vaccination Influenza Vacc ine [facility] Start: 01-23-2025 End: 01-23-2025 Patient encounter procedure 01/23/2025 11:20 AM EDT Office Visit [facility] [address] [place] [id number] Kristy rGossman NP [address] [place] [address] [facility] Start: 10-13-2024 End: 10-13-2024 Patient encounter procedure [facility] Comment on above: Arrived Start: 09-12-2024 End: 09-12-2024 Admission to same day surgery center 09/12/2024 1:00 PM EST - 09/12/2024 1:30 PM EST Surgery [facility] [address] [place] [address] Olga Chilel, DO [address] [place] [address] COLONOSCOPY DIAGNOSTIC / SCREENING [16068 (CPT )] [facility] Comment on above: COLONOSCOPY DIAGNOST IC / SCREENING [01614 (CPT )] Start: 09-12-2024 End: 09-12-2024 Colonoscopy flx dx w/collj spec when pfrmd COLONOSCOPY DIAGNOSTIC / SCREENING Diverticular disease; Left lower quadrant pain 09/12/2024 1:00 PM EST [facility] Start: 09-12-2024 Subsequent hospital visit by physician 09/12/2024 1:00 PM EST Hospital Encounter [facility] [address] [facility] [place] [address] [phone] Olga Chilel, DO [address] [place] [address] [facility] Start: 09-06-2024 End: 09-06-2024 ambulatory 09/06/2024 3:50 PM EST Support Visit [facility] Admit [address] [facility] [place] [address] [facility] - Pre Admit Start: 08-17-2024 End: 08-17-2024 Patient encounter procedure 08/17/2024 1:20 PM EDT Office Visit [facility] [address] [place] [address] Kristy Grossman NP [address] [place] [address] Arrived [facility] [address] [facility] Comment on above: Arrived Start: 07-21-2024 End: 07-21-2024 Patient encounter procedure 07/21/2024 1:20 PM EDT Office Visit [facility] [address] [place] [phone] Kristy Grossman, [employer] SUPERVISOR [address] [place] [address] [facility] [address] [facility] Start: 07-14-2024 Magnetic resonance angiography of neck without contrast MR angio neck wo con [facility] Start: 06-22-2024 End: 06-22-2025 MR Brain WO and W contrast IV MR brain w and wo contrast routine Imaging Routine Episodic migraine (CMS/HCC) Expressive aphasia Expected: 06/22/2024 (Approximate), Expires: 06/22/2025 [facility] Work Phone: Comment on above: Expected: 06/22/2024 (Approximate), Expires: 06/22/2025 Start: 06-22-2024 End: 06-22-2025 MRA Head vessels WO contrast MR angiogram head wo IV contrast Imaging Routine Expressive aphasia Expected: 06/22/2024 (Approximate), Expires: 06/22/2025 [facility] Comment on above: Expected: 06/22/2024 (Approximate), Expires: 06/22/2025 Start: 06-22-2024 End: 06-22-2025 MRA Neck vessels WO contrast MR angiogram neck wo IV contrast Imaging Routine Expressive aphasia Expected: 06/22/2024 (Approximate), Expires: 06/22/2025 [facility] Comment on above: Expected: 06/22/2024 (Approximate), Expires: 06/22/2025 Start: 07-03-2022 Influenza vaccination Flu vacc ine (Season Ended) [facility] Start: 2002 DTaP,Tdap and Td Vaccines (1 - Tdap) DTaP,Tdap and Td Vaccines (1 - Tdap) [facility] Start: 2002 DTaP/Tdap/Td vaccine (1 - Tdap) DTaP/Tdap/Td vaccine (1 - Tdap) [employer] [facility] Start: 2001 Adult BMI Follow Up Plan Adult BMI Follow Up Plan [facility] Start: 2001 Hepatitis C screening Hepatitis C sc reen [facility] Start: 1998 HIV screening HIV screen [facility] Start: 1995 Depression Screen Depression Screen [facility] Start: 1995 Depression Screening Depression Scre gabrielle [facility] Start: 1989 Pneumococcal 0-64 ye ars Vaccine (1 - PCV) Pneumococcal 0-64 years Vaccine (1 - PCV) [facility] Start: 1988 COVID-19 Vaccine (1) COVID-19 Vaccin e (1) [facility] Start: 1984 Varicella vaccine (1 of 2 - 2-dose childhood series) Varicella vaccine (1 of 2 - 2-dose childhood series) [facility] End: 08-31-2025 Colonoscopy Colonoscopy GI Routine Diverticular disease Left lower quadrant abdominal pain 1 Occurrences starting 08/31/2024 until 08/31/2025 [employer] Work Phone: Comment on above: 1 Occurrences starti ng 08/31/2024 until 08/31/2025 EKG 12 Lead EKG 12 Lead ECG Routine 04/19/2022 4:18 PM EDT [facility] Work Phone: Immunizations Immunization Date Immunization Notes Care Provider Avril alvarez 08-25-2024 influenza virus vaccine, unspecified formulation Dorota Urbina [facility] Payers Date Payer Category Payer Self-pay 2024 Medicaid [id number] 2024 Medicaid [id number] 6a [id number] 1983 Unknown [id number] 2.16.84 [id number] 1983 Unknown [id number] 2.16.84 [id number] 1983 Unknown [id number] 2.16.84 [id number] 1983 Unknown [id number] 2.16.84 [id number] 1983 Unknown [id number] 2.16.8 [id number] 1983 Unknown [id number] 2.16.8 [id number] 1983 Unknown [id number] 2.16.8 [id number] 1983 Unknown [id number] 2.16.84 [id number] 1983 Unknown [id number] 2.16.84 [id number] 1983 Unknown [id number] 2.16.84 [id number] 1983 Unknown [id number] 2.16.84 [id number] 1983 Unknown [id number] 2.16.84 [id number] 1959 Unknown [id number] Unknown [id number] 2.16.8 [id number] Social History Date Type Detail Facility Start: 04-19-2022 Tobacco smoking stat [facility] Smokes tobacco daily [employer] Other Start: 03-06-1995 End: 07-22-2022 History of tobacco use Cigarette Smoker [employer] Phone: Start: 04-19-2022 End: 03-30-2025 Cigarettes smoked current (pack per day) - Reported 1 [employer] Phone: Start: 04-19-2022 End: 08-31-2024 Tobacco use and exposure Smokeless tobacco non-user [employer] Phone: Start: 04-19-2022 End: 09-02-2024 Alcohol intake Ex-drinker (finding) [employer] Work Phone: Start: 1985 Sex Assigned At Not on file [employer] Phone: Start: 04-09-2022 End: 04-19-2022 Exposure to SARS-CoV-2 (event) Not sure [employer] Phone: Start: 07-20-2024 End: 03-30-2025 Sex Assigned At [facility] [employer] Other Start: 1985 Sex Assigned At Male [facility] Start: 07-20-2024 End: 08-31-2024 Tobacco smoking status [facility] Ex-smoker [facility] Start: 03-06-1995 End: 07-22-2022 History of tobacco use Current smoker [facility] Start: 07-20-2024 Tobacco use and exposure Former smokeless tobacco user [facility] Start: 07-20-2024 End: 03-30-2025 Alcoholic beverage intake Lifetime non-drinker (finding) [facility] Childcare Unknown [facility] Start: 08-31-2024 Tobacco Comment NICOTINE TABLETS [facility] Start: 06-07-2015 Sex Male (finding) [facility] Clinical Notes 09-01-2021 to 03-30-2025 Kristy Grossman NP - 03/30/2025 10:40 AM EDTPatient InstructionsKristy Grossman NP - 10/13/2024 1:20 PM ESTPatient InstructionsTelephone Encounter - Dorota KARIS Urbina - 09/06/2024 3:25 PM EST Note Date & Type Note Facility 03-30-2025 History of Present illness Narrative Images from the original note were not included. Chief Complaint Patient presents with Migraine Dizziness Subjective Doroteo Sharif is a 40 y.o. male. History of Present Illness The patient presents today for follow-up. At the prior neurology appointment, Nurtec was stopped, and Ubrelvy was started. The patient states he took Ubrelvy a few times, but the Nurtec was more effective and had a longer duration of action. He stopped Ubrelvy and started taking Nurtec again for this reason. Verapamil dose was also increased at the prior office visit. The patient is taking verapamil 180 mg daily. He denies any adverse effects but states this has not caused any noticeable improvement in his migraines or dizziness. He is having approximately 3 migraines per week recently. These are still preceded by visual aura and accompanied by increased sensitivity to light and occasionally nausea. He states they are unchanged in location or severity. He is currently seeing a halo of light in his vision and states he knows he will develop a migraine soon. The patient did return to vestibular therapy for further treatments but reports a difficult time performing some of the maneuvers/exercises due to his COPD and shortness of breath. He denies any subjective benefit in dizziness with the VT. The patient denies any new signs or symptoms of stroke since the prior neurology appointment. In particular, he denies visual changes, double vision, vision loss, cognitive changes, facial droop, coordination difficulty, swallowing difficulty, weakness, numbness, or paresthesias. He denies any further new concerns. Review of Systems Constitutional: Positive for fatigue. Negative for appetite change, chills, fever and unexpected weight change. HENT: Negative for ear discharge, ear pain, trouble swallowing and voice change. Eyes: Negative for visual change, double vision or loss of vision Respiratory: Positive for shortness of breath (intermittent, history of COPD). Negative for cough and wheezing. Cardiovascular: Negative for chest pain and palpitations. Gastrointestinal: Negative for abdominal pain, blood in stool, nausea and vomiting. Musculoskeletal: Negative for arthralgias, gait problem and myalgias. Neurological: Positive for dizziness, speech difficulty (word-finding difficulty) and headaches (accompanied by photophobia). Negative for tremors, seizures, syncope, facial asymmetry, weakness, light-headedness and numbness. Psychiatric/Behavioral: Negative for confusion, hallucinations and suicidal ideas. The patient is not nervous/anxious. Past Medical History: Diagnosis Date Anxiety COPD (chronic obstructive pulmonary disease) (CMS/HCC) Diverticulitis Hypertension (CMS/HCC) Migraine Vertigo Past Surgical History: Procedure Laterality Date OTHER SURGICAL HISTORY Broken arm OTHER SURGICAL HISTORY Family History Problem Relation Name Age of Onset Asthma Mother Hypertension Mother Alcohol abuse Mother Alcohol abuse Father Social History Tobacco Use Smoking status: Former Types: Cigarettes Smokeless tobacco: Former Substance Use Topics Alcohol use: Never Allergies: Augmentin [amoxicillin-pot clavulanate] Vitals: 03/30/25 1032 BP: 134/86 Pulse: 85 SpO2: 97% Body mass index is 36.67 kg/m . Weight: 241 lb 3.2 oz Neurologic exam: Mental status and general appearance: Awake and alert with unlabored respirations. Oriented to person, place, and time. Recent and remote memory are intact. Speech is clear and fluent without aphasia. Speech is non-dysarthric. Attention and concentration are normal. Fund of knowledge is appropriate for level of education. Pleasant. Cranial nerves: CN II: Visual acuity is normal. Visual [place] full to confrontation. CN III, IV, : Pupils are equal, round, and reactive to light. Extraocular movements intact. No ptosis present. CN V: Facial sensation is normal. CN VII: Full and symmetric facial movement. CN VIII: Hearing is normal to finger rub bilaterally. CN IX and X: Palate elevates symmetrically. CN XI: Shoulder shrug is normal bilaterally. CN XII: Tongue is midline without atrophy or fasciculation. Motor: RUE strength deltoid , biceps , triceps , wrist extensors , wrist flexor , and news librarian strength 5/5. LUE strength deltoid , biceps , triceps , wrist extensors , wrist flexor , and news librarian strength 5/5. RLE strength iliopsoas, quadriceps, tibialis anterior, and plantar flexion strength 5/5. LLE strength iliopsoas, quadriceps, tibialis anterior, and plantar flexion strength 5/5. Tone and bulk are normal. Sensory: Sensation is intact to light touch throughout all four extremities. Reflexes: RUE biceps reflex 2+ , brachioradialis reflex 2+. LUE biceps reflex 2+ , brachioradialis reflex 2+. RLE knee reflex 1+. LLE knee reflex 1+. Coordination: [id number]-kw-[id number] testing normal. Rapid alternating movements are normal. Gait: Normal. Review and summary of old records: [place] brain [place] [facility]: No focal stenosis, occlusion, or aneurysmal dilatation. Focal encephalomalacia is noted in the left frontal lobe with accompanying hemosiderin staining suggesting a previous hemorrhage. This is of uncertain etiology but is new when compared to the prior MRI from 07/21/2022. No mass or abnormal postcontrast enhancement. MR angiogram of the [place] w/o contrast [place] [facility] [place]: No evidence of significant stenosis, occlusion, or aneurysmal dilatation. [place] brain [place] [facility] [place]: No acute intracranial pathology. Assessment/Plan Diagnoses and all orders for this visit: Episodic migraine (CMS/HCC) Mr. Sharif is a 40-year-old male who I believe likely has migraines. The patient reports episodic dizziness (described as a false sensation of movement) which can precede some of his migraines. He can also experience mild vestibular symptoms in the absence of migraines at times. This raises suspicion for possible vestibular migraine. The patient initially had a positive response to verapamil but denies further improvement in symptoms since the dose increase in December 2024. He is having approximately 3 migraines per week. MRI of the brain on 07/14/2024 did not identify a secondary headache cause, and clinical examination today reveals no new neurologic deficits. I believe he could benefit from a medication adjustment to help improve symptom management. Of note - Sumatriptan was highly effective for acute migraine treatment but caused side effects of fatigue and weakness previously. Rizatriptan was less effective than sumatriptan and also caused fatigue. Nurtec was more effective than Ubrelvy. PLAN: - Reduce verapamil ER to 120 mg by mouth once a day for migraine prevention (180 mg dose was no more effective) - Start topiramate 25 mg by mouth once daily at bedtime. I counseled the patient on possible adverse effects of this medication in detail including VBA DEVELOPER depressant effects. He verbalizes understanding and wishes to proceed. He will notify the office should he develop any adverse effects - Avoid beta blockers due to history of COPD - Stop Ubrelvy - Restart Nurtec 75 mg ODT as needed for migraine - AVOID TRIPTANS IF POSSIBLE DUE TO CONCERN FOR HISTORY OF INTRACRANIAL HEMORRHAGE - Ensure adequate hydration, adequate sleep, healthy diet, and regular physical activity as tolerated - Avoidance of triggers Dizziness See above. The patient's dizziness is not necessarily provoked by orthostatic position changes, and he denies tinnitus or hearing loss. He also denies syncope, double vision, swallowing difficulty, or dysarthria. I believe his dizziness may represent vestibular migraine. However, he does also note that certain head movements can trigger his symptoms, and this raises suspicion for concurrent BPPV. Vestibular therapy did not provide subjective benefit, and he reports intolerance to some of the exercises due to his history of COPD. Meclizine has been helpful previously, and he requests a prescription for this today. PLAN: - Will send in low-dose meclizine 12.5 mg by mouth up to 3 times per day as needed for dizziness. We discussed possible adverse effects and that this medication should only be taken as needed rather than [id number]. We discussed that I would not recommend long-term use of meclizine. Patient is understanding and wishes to proceed Expressive aphasia The patient reported a strange episode in May 2024 where he awoke from his sleep to the sensation of a water balloon bursting on his forehead. He also reported hearing a loud, pop, at the time but denied accompanying headache. He reports subjective expressive aphasia since that time. MRI of the brain on 07/14/24 revealed evidence of a remote hemorrhage, however, I would not necessarily expect this to explain the patient's subacute symptoms. MRA of the head and neck were generally unremarkable. His speech and language are seemingly normal today. PLAN: - Monitor clinically Intracranial hemorrhage (CMS/HCC) MRI of the brain on 07/14/24 identified an area of focal encephalomalacia in the left frontal lobe with accompanying hemosiderin staining suggestive of a previous hemorrhage. We discussed that this may have occurred secondary to elevated blood pressure or smoking in the past. MRA of the head and neck on 07/14/24 did not identify aneurysm. The patient does not take any anticoagulant or antiplatelet medications. He is a former smoker and denies history of significant head injury or trauma. PLAN: - Avoid tobacco use and to avoid illicit drug use - Follow up closely with primary care provider to ensure optimal blood pressure control - I counseled the patient on signs and symptoms of stroke and advised the patient to seek emergent care in the emergency department if he develops any of these in the future. He verbalizes understanding Diagnosis and treatment options discussed in detail. All questions answered. The patient verbalizes understanding and is agreeable to the plan. Discussion in layman's terms. Follow up in the office within 3 months; sooner if needed for new or worsening symptoms. Kristy Grossman NP [facility] Advanced Neurology documented in this encounter [facility] 03-30-2025 Instructions Kristy Grossman NP - 03/30/2025 10:40 AM EDT - stop Ubrelvy - Restart Nurtec - reduce verapamil to 120 mg by mouth once a day for migraine prevention - start topiramate 25 mg by mouth daily at bedtime documented in this encounter [facility] 10-13-2024 History of Present illness Narrative Images from the original note were not included. Kristy Grossman NP Chief Complaint Patient presents with Migraine Dizziness Subjective Doroteo Sharif is a 39 y.o. male. HPI The patient presents today for follow up. At the prior neurology appointment, rizatriptan was prescribed for migraine , and the patient was advised to start taking verapamil ER. The patient is taking verapamil ER 120 mg once a day. He has tolerated the medication well and denies any adverse effects. He states verapamil ER has effectively reduced the frequency, severity, and duration of his migraines. His intermittent word-finding difficulty has remained the same, and he denies any new signs or symptoms of stroke since the prior neurology appointment. In particular, he denies visual changes, double vision, vision loss, cognitive changes, coordination difficulty, swallowing difficulty, weakness, numbness, or paresthesias. Prior to starting verapamil ER, the patient reported 2-3 migraines per week. Since starting the medication, frequency has improved to approximately 1 migraine per week. These are unchanged in location from the prior appointment. He states they no longer start off severe; they now start off as a mild headache and then gradually worsen. They are accompanied by increased sensitivity to light. They are not accompanied by nausea, vomiting, or sound sensitivity. He took rizatriptan 5 mg once and feels as if sumatriptan worked better for him. He states rizatriptan took longer to abort his migraine, and he still felt fatigued after taking it. The patient reports dizziness without accompanying symptoms approximately 2-3 days per week. He describes it as a false sensation of swaying or spinning. He states this can be provoked by looking at TVs on the wall, looking left to right multiple times while at a stop sign, and shifting his truck into park, as it causes the truck to move forward slightly. It is not provoked by orthostatic position changes. It can last minutes to 2 hours. The patient also notes involuntary twitching of the left eye over the past 2 to 3 days. He states this happens intermittently and is completely random. It lasts a few seconds and then resolves. It has not happened today but happened at least once an hour yesterday on 10/12/2024. Review of Systems Constitutional: Positive for fatigue. Negative for appetite change, chills, fever and unexpected weight change. HENT: Negative for ear discharge, ear pain, trouble swallowing and voice change. Eyes: Negative for visual change, double vision or loss of vision Respiratory: Negative for cough, shortness of breath and wheezing. Cardiovascular: Negative for chest pain and palpitations. Gastrointestinal: Negative for abdominal pain, blood in stool, nausea and vomiting. Musculoskeletal: Negative for arthralgias, gait problem and myalgias. Neurological: Positive for dizziness, speech difficulty (word-finding difficulty) and headaches (accompanied by photophobia). Negative for tremors, seizures, syncope, facial asymmetry, weakness, light-headedness and numbness. Psychiatric/Behavioral: Negative for confusion, hallucinations and suicidal ideas. The patient is not nervous/anxious. Past Medical History: Diagnosis Date Anxiety Diverticulitis Hypertension (CMS/HCC) Migraine (CMS/HCC) Past Surgical History: Procedure Laterality Date OTHER SURGICAL HISTORY Broken arm OTHER SURGICAL HISTORY Family History Problem Relation Name Age of Onset Asthma Mother Hypertension Mother Alcohol abuse Mother Alcohol abuse Father Social History Tobacco Use Smoking status: Former Types: Cigarettes Smokeless tobacco: Former Substance Use Topics Alcohol use: Never Allergies: Augmentin [amoxicillin-pot clavulanate] Vitals: 10/13/24 1319 BP: 124/78 Pulse: 87 SpO2: 97% Body mass index is 35 kg/m . weight: 237 lb Neurologic exam: Mental status and general appearance: Awake and alert with unlabored respirations. Oriented to person, place, and time. Recent and remote memory are intact. Speech is clear and fluent without aphasia. Speech is non-dysarthric. Attention and concentration are normal. Fund of knowledge is appropriate for level of education. Cranial nerves: CN II: Visual acuity is normal. Visual [place] full to confrontation. CN III, IV, : Pupils are equal, round, and reactive to light. Extraocular movements intact. No ptosis present. CN V: Facial sensation is normal. CN VII: Full and symmetric facial movement. CN VIII: Hearing is normal to finger rub bilaterally. CN IX and X: Palate elevates symmetrically. CN XI: Shoulder shrug is normal bilaterally. CN XII: Tongue is midline without atrophy or fasciculation. Motor: RUE strength deltoid , biceps , triceps , wrist extensors , wrist flexor , and news librarian strength 5/5. LUE strength deltoid , biceps , triceps , wrist extensors , wrist flexor , and news librarian strength 5/5. RLE strength iliopsoas, quadriceps, tibialis anterior, and plantar flexion strength 5/5. LLE strength iliopsoas, quadriceps, tibialis anterior, and plantar flexion strength 5/5. Tone and bulk are normal. Sensory: Sensation is intact to light touch throughout all four extremities. Sensation is intact to temperature in all extremities. Reflexes: RUE biceps reflex 2+ , brachioradialis reflex 2+. LUE biceps reflex 2+ , brachioradialis reflex 2+. RLE Knee reflex 1+. LLE Knee reflex 1+. Coordination: Nngwbi-jh-fudq testing normal. Rapid alternating movements are normal. Gait: Normal. Review and summary of old records: MRI brain and [place] of [place] [facility]: No focal stenosis, occlusion, or aneurysmal dilatation. Focal encephalomalacia is noted in the left frontal lobe with accompanying hemosiderin staining suggesting a previous hemorrhage. This is of uncertain etiology but is new when compared to the prior MRI from 07/21/2022. No mass or abnormal postcontrast enhancement. MR [place]ogram of the [place] w/o contrast [place] [facility] [place]: No evidence of significant stenosis, occlusion, or aneurysmal dilatation. [place] brain [place] [facility] [place]: No acute intracranial pathology. Assessment/Plan Diagnoses and all orders for this visit: Episodic migraine (CMS/HCC) It is my impression that the patient has migraines. MRI of the brain on 07/21/22 was unremarkable for secondary headache cause. The patient reports episodic dizziness (described as a false sensation of movement) which can precede some of his migraines. He can also experience mild vestibular symptoms in the absence of migraines intermittently. I have suspicion for vestibular migraine. Since starting verapamil, headache frequency, severity, and duration have significantly improved. He is now only having approximately 4 migraines per month. Sumatriptan was highly effective for acute migraine treatment but caused side effects of fatigue and weakness previously. Rizatriptan was less effective than sumatriptan and also caused fatigue. Will trial an alternative medication for migraine . PLAN: - Continue verapamil ER 120 mg by mouth once a day for migraine prevention - Stop rizatriptan - Start Nurtec 75 mg ODT needed for migraine . Take no more than 1 dose in 24 hours. I counseled the patient on proper use and potential side effects. He verbalizes understanding and wishes to proceed - I encouraged adequate hydration, regular physical activity as tolerated, and sleep hygiene Dizziness See above. The patient's dizziness is not provoked by orthostatic position changes, and he denies auditory symptoms such as tinnitus or hearing loss. He also denies syncope, diplopia, dysphagia, or dysarthria. I believe his dizziness may represent vestibular migraine. However, he does also note that certain head movements can trigger his symptoms, and this raises suspicion for concurrent BPPV. He would like to try vestibular therapy. PLAN: - Referral to vestibular therapy for evaluation and treatment Expressive aphasia The patient reported a strange episode in May 2024 where he awoke from his sleep to the sensation of a water balloon bursting on his forehead. He also reported hearing a loud, pop, at the time but denied accompanying headache. He states he has experienced expressive aphasia since that time. MRI of the brain on 07/14/24 revealed evidence of a remote hemorrhage, however, I would not necessarily expect this to explain the patient's subacute symptoms. MRA of the head and neck were generally unremarkable. His speech and language are seemingly normal today. PLAN: - Monitor clinically Intracranial hemorrhage (CMS/HCC) MRI of the brain on 07/14/24 identified an area of focal encephalomalacia in the left frontal lobe with accompanying hemosiderin staining suggestive of a previous hemorrhage. We discussed that this may have occurred secondary to elevated blood pressure or smoking in the past. MRA of the head and neck on 07/14/24 did not identify aneurysm. The patient does not take any anticoagulant or antiplatelet medications. He is a former smoker and denies history of significant head injury or trauma. PLAN: - Avoid tobacco use and to avoid illicit drug use - Follow up closely with primary care provider to ensure optimal blood pressure control - I counseled the patient on signs and symptoms of stroke and advised the patient to seek emergent care in the emergency department if he develops any of these in the future. He verbalizes understanding The patient describes today was sounds like blepharospasm on the left. I asked him to please keep track of his symptoms and update us at follow-up. Diagnosis and treatment options discussed in detail. All questions answered. The patient verbalizes understanding and is agreeable to the plan. Discussion in layman's terms. Follow up in the office within 2 months; sooner if needed for new or worsening symptoms. Kristy Grossman NP [facility] Advanced Neurology documented in this encounter [facility] 10-13-2024 Instructions Kristy Grossman NP - 10/13/2024 1:20 PM EST - Start Nurtec 75 mg ODT as needed for acute migraine treatment - Referral to vestibular therapy for dizziness documented in this encounter [facility] 09-06-2024 Miscellaneous Notes I called Doroteo and informed him that there was a surgery cancellation and his surgery was moved up to 12:00pm noon - with an arrival time of 10:00 am. He was fine with that and had no questions. Doroteo called into the office to cancel his colonoscopy on Thursday09/12/[address] Chilel. He said he couldn't afford the bowel prep provided by [facility]. I said I could give him a free sample however he still declined. I called Sherley at [facility] and cancelled the surgery - I called and moved the last patient up. documented in this encounter [facility] 09-06-2024 Telephone encounter Note I called Doroteo and informed him that there was a surgery cancellation and his surgery was moved up to 12:00pm noon - with an arrival time of 10:00 am. He was fine with that and had no questions. [facility] 09-06-2024 Telephone encounter Note Doroteo called into the office to cancel his colonoscopy on Thursday09/12/[address] Chilel. He said he couldn't afford the bowel prep provided by [facility]. I said I could give him a free sample however he still declined. I called Sherley at [facility] and cancelled the surgery - I called and moved the last patient up. [facility] 08-31-2024 History of Present illness Narrative Images from the original note were not included. [facility] [address] [facility] [id number] CONSULT NOTE CHIEF COMPLAINT Chief Complaint Patient presents with Hernia LEFT ING HERNIA, REF BY DR. RAMÍREZ Sadler Juan Sharif is a 39 y.o. male who presents today complaining of about a left inguinal hernia which he states he has known about for about 10-15 years. He has had pain off and on in that area and he recently had a CT scan done 1 month ago at the [facility] which demonstrated a left inguinal hernia. He denies any nausea vomiting or bowel habit changes. He went to the [place] ED in June for left lower quadrant pain was diagnosed with diverticulitis and placed on antibiotics and he has been treated twice a year for several years for diverticulitis and has never had endoscopy performed. He complains of fullness and discomfort in that area He is unemployed and is applying for disability due to COPD diverticulitis and migraine headaches. 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 He is an ex tobacco user and quit smoking tobacco 2 years ago prior to that he smoked for 20-25 years. He has a history of vertigo as well. Patient listed on his intake that he had inguinal hernia surgery in 2023 but upon further questioning he misinterpreted that. We will try to get it extracted from his chart. Again for clarification he has not had inguinal hernia repair in 2023. MEDICATION Current Outpatient Medications: albuterol (PROVENTIL HFA;VENTOLIN HFA) 90 mcg/actuation inhaler, Inhale 2 puffs daily as needed., Disp: , Rfl: ANORO ELLIPTA 62.5-25 mcg/actuation blister with device, Inhale 1 puff in the morning., Disp: , Rfl: escitalopram (LEXAPRO) 5 mg tablet, Take 1 tablet (5 mg total) by mouth in the morning., Disp: , Rfl: lisinopriL (PRINIVIL,ZESTRIL) 10 mg tablet, Take 1 tablet (10 mg total) by mouth in the morning., Disp: , Rfl: meclizine (ANTIVERT) 25 mg tablet, Take 1 tablet (25 mg total) by mouth every 8 (eight) hours as needed., Disp: , Rfl: rizatriptan (MAXALT) 5 mg tablet, Take 1 tablet (5 mg total) by mouth once as needed., Disp: , Rfl: verapamil SR (CALAN-SR) 120 mg CR tablet, Take 1 tablet (120 mg total) by mouth nightly., Disp: , Rfl: ALLERGY Allergies Allergen Reactions Amoxicillin-Pot Clavulanate Nausea And Vomiting and Swelling MEDICAL HISTORY Past Medical History: Diagnosis Date Anxiety Chronic headache 2019 COPD (chronic obstructive pulmonary disease) ([facility]) 8-24 Diverticulitis HTN (hypertension) Hx of vertigo Migraine 2019 Varicella 1987 SURGICAL HISTORY Past Surgical History: Procedure Laterality Date ABDOMINAL SURGERY d/t pyloric stenosis as an ARM SURGERY 1991 FRACTURE SURGERY 1991 HERNIA REPAIR 1982 INGUINAL HERNIA REPAIR 2023 UMBILICAL HERNIA REPAIR 1982 SOCIAL HISTORY Social History Socioeconomic History Marital status: Spouse name: Not on file Number of children: Not on file Years of education: Not on file Highest education level: Not on file Occupational History Not on file Tobacco Use Smoking status: Former Current packs/day: 0.00 Average packs/day: 1 pack/day for 27.4 years (27.4 ttl pk-yrs) Types: Cigarettes Start date: 03/06/1995 Quit date: 07/22/2022 Years since quittin.1 Smokeless tobacco: Never Tobacco comments: NICOTINE TABLETS Vaping Use Vaping status: Never Used Substance and Sexual Activity Alcohol use: Not Currently Drug use: Not Currently Sexual activity: Yes Partners: Female control/protection: Surgical Other Topics Concern Caffeine Use Yes Social History Narrative Not on file Social Drivers of Health Financial Resource Strain: Not on file Food Insecurity: Not on file Transportation Needs: Not on file Physical Activity: Not on file Stress: Not on file Social Connections: Not on file Interpersonal Safety: Not on file Housing Instability: Not on file FAMILY HISTORY Family History Problem Relation Age of Onset Asthma Mother COPD Mother Hypertension Mother Hypertension Brother Learning disabilities Son Autism Breast cancer Maternal Aunt COPD Maternal Grandfather Breast cancer Cousin REVIEW OF SYSTEMS: Constitutional: Denies fevers, denies recent illnesses. Eyes: Denies any vision changes. ENT: Denies any throat pain. Neck: Denies any neck pain. Cardiovascular denies chest pain. Denies palpitations. Respiratory: Denies shortness of breath, denies cough, denies history of asthma or any other pulmonary illnesses. Gastrointestinal: Negative for abdominal pain, nausea, melena, hematochezia, weight loss, change in bowel habits or weight loss or emesis. Genitourinary negative for dysuria hematuria urinary frequency or urgency. Musculoskeletal: Negative for extremity pains or joint discomfort. Neurologic: +migraines and vertigo; No change in sensation or paresthesias or history of seizure disorder skin: No rashes. Hematologic: No anemia. No purpura. No petechiae and no prolonged or excessive bleeding Allergic and immunologic: No pruritus. No swelling. Endocrine: No unexplained weight loss. No polydipsia. No polyuria. No polyphagia. PHYSICAL EXAM Constitutional: He is oriented to person, place, and time. Vital signs are normal. He appears well-developed and well-nourished. HEENT: Head: Normocephalic and atraumatic. Eyes: Conjunctivae, EOM and lids are normal. Neck: Trachea normal. Neck supple. No thyroid mass present. Cardiovascular: Normal rate and regular rhythm. Pulmonary/Chest: Effort normal and breath sounds normal. Abdominal: Soft. Normal appearance. Obese nontender He exhibits no distension and no mass. There is no hepatosplenomegaly or splenomegaly. There is negative Glaser's sign. No hernia especially in left inguinal area. No bulge or asymmetry. Musculoskeletal: Normal range of motion. Lymphadenopathy: He has no cervical adenopathy. He has no axillary adenopathy. Right: No inguinal and no supraclavicular adenopathy present. Left: No inguinal and no supraclavicular adenopathy present. Neurological: He is alert and oriented to person, place, and time. Skin: Skin is warm, dry and intact. Psychiatric: He has a normal mood and affect. His speech is normal and behavior is normal. Cognition and memory are normal. IMPRESSION 1. Left inguinal pain without visible hernia on physical examination even though CT scan reports fat containing inguinal hernia done at [facility] 2. Diverticulitis and/losis by history multiple episodes without ever having endoscopy 3. History of COPD secondary to past tobacco use, history of vertigo, migraine headaches and hypertension ASSESSMENT & PLAN Colonoscopy with possible biopsy or polypectomy. I discussed the risks, benefits, alternatives to the above which may include perforation or bleeding or risks of anesthesia. They understood all the above and wished to proceed. Recommend no surgery for fat containing left inguinal hernia that contains no bowel and there is nothing visible on physical examination at this time. I am more concerned about his diverticular disease in the fact that he has never had a colonoscopy has had multiple attacks over the last several years 3-4 in the past year. Stricture needs to be ruled out as well as malignancy. He may need elective colon resection either open or robotic if he continues to have multiple attacks of diverticular disease. He is encouraged to lose weight. Evaluation included: Preparing to see the patient (e.g., review of tests) Obtaining and/or reviewing separately obtained history Performing a medically appropriate examination and/or evaluation Counseling and educating the patient/family/caregiver Referring and communicating with other health care trainer Left inguinal hernia [K40.90] Olga Chilel, This note was created with the assistance of a speech recognition program. While intending to generate a timely document that accurately reflects the content of the visit, no guarantee can be provided that every grammatical or spelling mistake has been or will be identified or corrected. Thank you for your understanding. documented in this encounter [facility] 08-17-2024 History of Present illness Narrative Images from the original note were not included. Kristy Grossman NP Chief Complaint Patient presents with Migraine Subjective Doroteo Sharif is a 39 y.o. male. HPI The patient presents today for follow up. He had an MRI of the brain and MRA of the head and neck completed in July 2024. Results of this were reviewed with the patient via telephone encounter on 07/20/2024. The patient continues to have intermittent word-finding difficulty but states this has improved since the prior neurology appointment. He also reports losing his train of thought during a conversation at times. He denies any new signs or symptoms of stroke since the previous appointment. He is not smoking. At the prior appointment, verapamil was prescribed. The patient states he just picked this medication up from the pharmacy on 08/14/2024, as there was a pharmacy issue. He plans to start it soon. He states he would like to discuss an alternative abortive medication for migraines, as sumatriptan makes him feel fatigued and generally weak when he takes it. The patient has had approximately 2 to 3 migraines per week recently. These are unchanged in location or characteristic. They are located on the vertex of his head. They are preceded by dizziness and accompanied by light and sound sensitivity. They are not accompanied by visual disturbance, weakness, numbness, or paresthesias. No further concerns reported. The patient denies history of cardiac disease, bradycardia, or heart block. Review of Systems Constitutional: Positive for fatigue. Negative for appetite change, chills, fever and unexpected weight change. HENT: Negative for ear discharge, ear pain, trouble swallowing and voice change. Eyes: Negative for visual change, double vision or loss of vision Respiratory: Negative for cough, shortness of breath and wheezing. Cardiovascular: Negative for chest pain and palpitations. Gastrointestinal: Negative for abdominal pain, blood in stool, nausea and vomiting. Musculoskeletal: Negative for arthralgias, gait problem and myalgias. Neurological: Positive for dizziness, speech difficulty (word-finding difficulty) and headaches (associated with photophobia and phonophobia). Negative for tremors, seizures, syncope, facial asymmetry, weakness, light-headedness and numbness. Psychiatric/Behavioral: Negative for confusion, hallucinations and suicidal ideas. The patient is not nervous/anxious. Medication List albuterol HFA 90 mcg/act inhaler escitalopram 5 MG tablet; Commonly known as: Lexapro lisinopril 10 MG tablet SUMAtriptan 50 MG tablet; Commonly known as: Imitrex Past Medical History: Diagnosis Date Anxiety Diverticulitis Hypertension (CMS/HCC) Migraine (CMS/HCC) Past Surgical History: Procedure Laterality Date OTHER SURGICAL HISTORY Broken arm OTHER SURGICAL HISTORY Family History Problem Relation Name Age of Onset Asthma Mother Hypertension Mother Alcohol abuse Mother Alcohol abuse Father Social History Tobacco Use Smoking status: Former Types: Cigarettes Smokeless tobacco: Former Substance Use Topics Alcohol use: Never Allergies: Augmentin [amoxicillin-pot clavulanate] Vitals: 08/17/24 1318 BP: 116/72 Pulse: 83 SpO2: 97% Body mass index is 33.82 kg/m . weight: 229 lb Neurologic exam: Mental status and general appearance: Awake and alert with unlabored respirations. Oriented to person, place, and time. Recent and remote memory are intact. Speech is clear and fluent without aphasia. Speech is non-dysarthric. Attention and concentration are normal. Fund of knowledge is appropriate for level of education. Cranial nerves: CN II: Visual acuity is normal. Visual [place] full to confrontation. CN III, IV, : Pupils are equal, round, and reactive to light. Extraocular movements intact. No ptosis present. CN V: Facial sensation is normal. CN VII: Full and symmetric facial movement. CN VIII: Hearing is normal to finger rub bilaterally. CN IX and X: Palate elevates symmetrically. CN XI: Shoulder shrug is normal bilaterally. CN XII: Tongue is midline without atrophy or fasciculation. Motor: RUE strength deltoid , biceps , triceps , wrist extensors , wrist flexor , and news librarian strength 5/5. LUE strength deltoid , biceps , triceps , wrist extensors , wrist flexor , and news librarian strength 5/5. RLE strength iliopsoas, quadriceps, tibialis anterior, plantar flexion, and dorsiflexion strength 5/5. LLE strength iliopsoas, quadriceps, tibialis anterior, plantar flexion, and dorsiflexion strength 5/5. Tone and bulk are normal. Sensory: Sensation is intact to light touch throughout all four extremities. Sensation is intact to temperature in all extremities. Reflexes: RUE biceps reflex 2+ , brachioradialis reflex 2+. LUE biceps reflex 2+ , brachioradialis reflex 2+. RLE Knee reflex 1+. LLE Knee reflex 1+. Coordination: [id number] testing normal. Rapid alternating movements are normal. Gait: Normal. Review and summary of old records: [place] brain [place] [facility] [place] No focal stenosis, occlusion, or aneurysmal dilatation. Focal encephalomalacia is noted in the left frontal lobe with accompanying hemosiderin staining suggesting a previous hemorrhage. This is of uncertain etiology but is new when compared to the prior MRI from 07/21/2022. No mass or abnormal postcontrast enhancement. MR [place] of the [place] w[place] [facility] [place]: No evidence of significant stenosis, occlusion, or aneurysmal dilatation. [place] brain [place] [facility] [place]: No acute intracranial pathology. Assessment/Plan Diagnoses and all orders for this visit: Episodic migraine (CMS/HCC) It is my impression that the patient has migraines. MRI of the brain on 07/21/22 was unremarkable for secondary headache cause. The patient has had approximately 8 to 12 migraines per month recently. He reports episodic dizziness (described as a false sensation of movement) which can precede some of his migraines. This typically lasts a few minutes. He can also experience mild vestibular symptoms in the absence of migraines at times. I have suspicion for vestibular migraine. Sumatriptan has been highly effective for acute migraine treatment, but the patient is interested in trying an alternative medication due to side effects of fatigue and weakness. PLAN: - Start verapamil ER 120 mg by mouth once a day for migraine prevention. This medication was ordered at the prior appointment, and the patient states he plans to start it soon. I advised him to notify our office if he experiences any adverse effects. He verbalizes understanding - Stop sumatriptan - Start rizatriptan 5 mg by mouth as needed for migraine . I counseled the patient on proper use and potential side effects. He verbalizes understanding and wishes to proceed - Adequate hydration, regular physical activity as tolerated, sleep hygiene, and stress management Dizziness See above. The patient's dizziness is not provoked by positional changes or head movements, and he denies auditory symptoms such as tinnitus or hearing loss. He also denies syncope, diplopia, dysphagia, or dysarthria. I believe his dizziness may represent vestibular migraine. Expressive aphasia The patient reported a strange episode in May 2024 where he awoke from his sleep to the sensation of a water balloon bursting on his forehead. He also reported hearing a loud, pop, at the time but denied accompanying headache. He states he has experienced expressive aphasia since that time. MRI of the brain on 07/14/24 revealed evidence of a remote hemorrhage, however, I would not necessarily expect this to explain the patient's subacute symptoms. MRA of the head and neck were generally unremarkable. His speech and language are seemingly normal throughout our appointment today. PLAN: - Monitor clinically Intracranial hemorrhage (CMS/HCC) MRI of the brain on 07/14/24 identified an area of focal encephalomalacia in the left frontal lobe with accompanying hemosiderin staining suggestive of a previous hemorrhage. We discussed that this may have occurred secondary to elevated blood pressure or smoking in the past. MRA of the head and neck on 07/14/24 did not identify aneurysm. The patient does not take any anticoagulant or antiplatelet medications. He is a former smoker and denies history of significant head injury or trauma. PLAN: - I advised the patient to avoid tobacco use and to avoid illicit drug use - I advised the patient to follow up closely with his primary care provider to ensure optimal blood pressure control to help prevent a future stroke - I counseled the patient on signs and symptoms of stroke and advised the patient to seek emergent care in the emergency department if he develops any of these in the future. He verbalizes understanding Diagnosis and treatment options discussed in detail. All questions answered. The patient verbalizes understanding and is agreeable to the plan. Discussion in layman's terms. Follow up in the office within 1 to 2 months; sooner if needed for new or worsening symptoms. Kristy Grossman NP [facility] Advanced Neurology documented in this encounter [facility] 08-17-2024 Instructions Kristy Grossman NP - 08/17/2024 1:20 PM EDT - Stop sumatriptan - Start rizatriptan as directed for migraine documented in this encounter [facility] 07-20-2024 Telephone encounter Note During our phone conversation, the patient states he never received the prescription to start verapamil. It looks like this was discontinued for unknown reason. I will reorder it today. I advised him to notify our office if he does not receive verapamil prescription within 1 week. [facility] 07-20-2024 Miscellaneous Notes During our phone conversation, the patient states he never received the prescription to start verapamil. It looks like this was discontinued for unknown reason. I will reorder it today. I advised him to notify our office if he does not receive verapamil prescription within 1 week. I called the patient this evening. I discussed results of his MRI of the brain and MRA of the head and neck with him. I informed the patient that MR angiogram of the head and neck identified no significant artery narrowing, blockage, or aneurysm. I informed the patient that MRI of the brain identified an area of cerebral softening likely secondary to a previous brain bleed. The patient is a former smoker but states he no longer smokes. He denies illicit drug use. He denies any new neurologic symptoms since the prior neurology appointment. I recommended the patient follow up closely with his primary care provider to ensure adequate blood pressure control. I recommended he avoid tobacco use and illicit drug use. I counseled the patient on signs symptoms of TIA/stroke and educated the patient to seek emergent care in the emergency department if he develops any of these in the future. He verbalized understanding. All questions answered. Patient returned your call, I spoke with patient to let him know you would call him back. I called the patient to discuss MRI of the brain results with him but was sent to voicemail. I left a message asking the patient to please call our office back to discuss. documented in this encounter [facility] 07-20-2024 Telephone encounter Note I called the patient this evening. I discussed results of his MRI of the brain and MRA of the head and neck with him. I informed the patient that MR angiogram of the head and neck identified no significant artery narrowing, blockage, or aneurysm. I informed the patient that MRI of the brain identified an area of cerebral softening likely secondary to a previous brain bleed. The patient is a former smoker but states he no longer smokes. He denies illicit drug use. He denies any new neurologic symptoms since the prior neurology appointment. I recommended the patient follow up closely with his primary care provider to ensure adequate blood pressure control. I recommended he avoid tobacco use and illicit drug use. I counseled the patient on signs symptoms of TIA/stroke and educated the patient to seek emergent care in the emergency department if he develops any of these in the future. He verbalized understanding. All questions answered. [facility] 07-20-2024 Telephone encounter Note Patient returned your call, I spoke with patient to let him know you would call him back. [facility] 07-19-2024 Telephone encounter Note I called the patient to discuss MRI of the brain results with him but was sent to voicemail. I left a message asking the patient to please call our office back to discuss. [facility] 06-16-2024 History of Present illness Narrative Images from the original note were not included. Kristy Grossman NP Chief Complaint Patient presents with Migraine Subjective Doroteo Sharif is a 39 y.o. male. HPI The patient presents today for follow up. His migraines have been generally unchanged since the prior neurology appointment. The patient has around 3-4 migraines per week. Approximately 1-2 times per week, he can take Tylenol with relief. Approximately 2 days per week, he will use his sumatriptan for relief. Sumatriptan aborts his migraines within 30 minutes of use. The patient's migraines are located on the, top of my head, on the right. He describes them as sharp. They are preceded by visual aura (seeing light around objects) and associated with increased sensitivity to light. They are not associated with nausea, vomiting, weakness, numbness, or paresthesias. Severity is typically moderate. The patient had an episode approximately 1 month ago where he awoke from his sleep to a strange, sudden sensation in his forehead. He states it felt like someone burst a water balloon on his forehead, and he heard a loud, pop. The symptoms resolved very quickly. He did not have a headache at the time and denies blurred vision. He also denies visual changes, double vision, vision loss, numbness, paresthesias, or weakness. Ever since the episode, the patient states, it seems like I struggle with sentences. He has difficulty with word finding and will lose his train of thought in the middle of a conversation. He is concerned by this episode and worried about a possible aneurysm or what may have caused this. He denies history of similar episodes. He denies any further new concerns. Review of Systems Constitutional: Negative for appetite change, chills, fatigue, fever and unexpected weight change. HENT: Negative for ear discharge, ear pain, trouble swallowing and voice change. Eyes: Negative for visual change, double vision or loss of vision Respiratory: Negative for cough, shortness of breath and wheezing. Cardiovascular: Negative for chest pain and palpitations. Gastrointestinal: Negative for abdominal pain, blood in stool, nausea and vomiting. Musculoskeletal: Negative for arthralgias, gait problem and myalgias. Neurological: Positive for dizziness, speech difficulty (word-finding difficulty) and headaches (associated with photophobia and phonophobia). Negative for tremors, seizures, syncope, facial asymmetry, weakness, light-headedness and numbness. Psychiatric/Behavioral: Negative for confusion, hallucinations and suicidal ideas. The patient is not nervous/anxious. The patient denies history of cardiac disease, bradycardia, or heart block. Medication List escitalopram 5 MG tablet; Commonly known as: Lexapro lisinopril 10 MG tablet SUMAtriptan 50 MG tablet; Commonly known as: Imitrex Past Medical History: Diagnosis Date Anxiety Diverticulitis Hypertension (CMS/HCC) Migraine (CMS/HCC) Past Surgical History: Procedure Laterality Date OTHER SURGICAL HISTORY Broken arm OTHER SURGICAL HISTORY Family History Problem Relation Name Age of Onset Asthma Mother Hypertension Mother Alcohol abuse Mother Alcohol abuse Father Social History Tobacco Use Smoking status: Former Types: Cigarettes Smokeless tobacco: Not on file Substance Use Topics Alcohol use: Never Allergies: Augmentin [amoxicillin-pot clavulanate] Vitals: 06/16/24 1317 BP: 129/85 Pulse: 69 SpO2: 95% Body mass index is 34.53 kg/m . weight: 233 lb 12.8 oz Neurologic exam: Mental status: Awake and alert with unlabored respirations. Oriented to person, place and time. Recent and remote memory are intact. Speech is clear and fluent without aphasia. Attention and concentration are normal. Fund of knowledge is appropriate for level of education. Cranial nerves: CN II: Visual acuity is normal. Visual [place] full to confrontation. CN III, IV, : Pupils are equal, round and reactive to light. Extraocular movements intact. No ptosis present. CN V: Facial sensation is normal. CN VII: Full and symmetric facial movement. CN VIII: Hearing is normal to finger rub bilaterally. CN IX and X: Palate elevates symmetrically. CN XI: Shoulder shrug is normal bilaterally. CN XII: Tongue is midline without atrophy or fasciculation. Motor: RUE strength deltoid , biceps , triceps , wrist extensors , wrist flexor , and news librarian strength 5/5. LUE strength deltoid , biceps , triceps , wrist extensors , wrist flexor , and news librarian strength 5/5. RLE strength iliopsoas, quadriceps, tibialis anterior, plantar flexion, and dorsiflexion strength 5/5. LLE strength iliopsoas, quadriceps, tibialis anterior, plantar flexion, and dorsiflexion strength 5/5. Tone and bulk are normal. Sensory: Sensation is intact to light touch throughout all four extremities. Sensation is intact to temperature in all extremities. Reflexes: RUE biceps reflex 2+ , brachioradialis reflex 2+. LUE biceps reflex 2+ , brachioradialis reflex 2+. RLE Knee reflex 1+. LLE Knee reflex 1+. Coordination: [id number] testing normal. Rapid alternating movements are normal. Gait: Normal. Review and summary of old records: [place] [facility] [place] No acute intracranial pathology. Assessment/Plan Diagnoses and all orders for this visit: Episodic migraine (CMS/HCC) It is my impression that the patient has migraines. MRI of the brain on 07/21/22 was unremarkable for secondary headache cause. The patient has approximately 12 to 16 migraines per month. He reports episodic dizziness (described as a false sensation of movement) which can precede some of his migraines. This typically lasts a few minutes. He can also experience mild vestibular symptoms in the absence of migraines at times. Given the clinical description, I have suspicion for vestibular migraine. Sumatriptan is highly effective for acute migraine treatment. However, the patient runs out of this prescription monthly, as his migraine frequency exceeds the number of sumatriptan pills he receives. He has never trialed preventative treatment but is interested in doing so. PLAN: - MRI of the brain - Start verapamil ER 120 mg by mouth once a day for migraine prevention. I counseled the patient on potential side effects. He verbalizes understanding and wishes to proceed - Continue sumatriptan 50 mg by mouth as needed for migraine . Take no more than 2 doses in 24 hours. I reviewed potential side effects of this medication with the patient - Adequate hydration, regular physical activity as tolerated, sleep hygiene, and stress management Dizziness See above. The patient's dizziness is not provoked by positional changes or head movements, and he denies auditory symptoms such as tinnitus or hearing loss. He also denies syncope, diplopia, dysphagia, or dysarthria. I believe his dizziness may represent vestibular migraine. Expressive aphasia The patient presents today reporting a strange episode approximately 1 month ago where he awoke from his sleep to the sensation of a water balloon bursting on his forehead. He also notes hearing a loud, pop, at the time. He states he has experienced expressive aphasia since that time. Though, his speech and language are seemingly normal throughout our appointment today. I explained to the patient that the etiology of his symptoms is unclear to me. However, I do think intracranial imaging for stroke work up is warranted, as stroke can cause sudden onset of new expressive aphasia. PLAN: - MRI of the brain to assess for an intracranial process which may be contributing to the patient's symptoms - MRA of the head and neck to assess for an intracranial or extracranial artery abnormality which may have contributed to the patient's symptoms Diagnosis and treatment options discussed in detail. All questions answered. Patient understands and is agreeable to the plan. Discussion in layman's terms. Follow up in the office within 1 month; sooner if needed for new or worsening symptoms. Kristy Grossman NP [facility] Advanced Neurology documented in this encounter [facility] 06-16-2024 Instructions Kristy Grossman NP - 06/16/2024 1:20 PM EDT - MRI of the brain - MRA of the head and neck - Start verapamil ER 120 mg by mouth once a day documented in this encounter [facility] 04-19-2022 Hospital Discharge instructions Erik Mora PA-C - 04/19/2022 Follow-up with primary care doctor 3 days for reevaluation. Continue home medications as prescribed. Avoid known causes that provoke your symptoms. Promptly return to emergency department for new, changing, worsening of symptoms or other concerns. The following attachments cannot be sent through Care Everywhere.Dizziness ([place])Lightheadedness or Faintness ([place])documented in this encounter [employer] Phone: 09-01-2021 Evaluation note Encounter Date Diagnosis Assessment Notes Aug, Acute non-recurrent sinusitis, unspecified location (ICD-10 - J01.90) Aug, Right otitis media, unspecified otitis media type (ICD-10 - H66.91) Aug, Acute otitis externa of right ear, unspecified type (ICD-10 - H60.501) [employer] Other Evaluation note* Diagnosis Atypical chest pain- Primary Other chest pain Dizziness Dizziness and giddiness documented in this encounter [facility] Work Phone: evaluation noteNo assessment information available [facility] Work Phone: Evaluation note* Diagnosis Episodic migraine (CMS/HCC)- Primary Dizziness Dizziness and giddiness Expressive aphasia Intracranial hemorrhage (CMS/HCC) Unspecified intracranial hemorrhage documented in this encounter [facility] Diagnosis Episodic migraine (CMS/HCC)- Primary Dizziness Dizziness and giddiness Expressive aphasia Intracranial hemorrhage (CMS/HCC) Unspecified intracranial hemorrhage documented [facility] encounter [facility]* Diagnosis Episodic migraine (CMS/HCC)- Primary Dizziness Dizziness and giddiness Expressive aphasia documented in this encounter [facility]* Diagnosis Episodic migraine (CMS/HCC)- Primary documented in this encounter [facility] Healthcare[facility]* Diagnosis Left inguinal hernia- Primary Inguinal hernia without mention of obstruction or gangrene, unilateral or unspecified, (not specified as recurrent) Abnormal CT of the abdomen Nonspecific (abnormal) findings on radiological and other examination of abdominal area, including retroperitoneum Class 1 drug-induced obesity with serious comorbidity and body mass index (BMI) of 34.0 to 34.9 in adult Diverticular disease Diverticulosis of colon (without mention of hemorrhage) Left lower quadrant abdominal pain [facility] Diagnosis Episodic migraine (CMS/HCC)- Primary Dizziness Dizziness and giddiness Expressive aphasia Intracranial hemorrhage (CMS/HCC) Unspecified intracranial hemorrhage documented in this encounter [facility] HealthcareHistory general Narrative - Reported* Type Description Date Medical History HTN (hypertension) Surgical History fracture repair right arm [employer] Other InstructionsNot on filedocumented in this encounter [facility] filed[facility] Summary Purpose Family History No Family History Records Found Relationship Condition Age at Onset Recorded Date/T ernie mother Hypertension Unknown Advance Directives No Advanced Directives Records Found Advance Directive Response Recorded Date/ Time Advance Directives No July 10:26am Chief Complaint and Reason for Visit Chief Complaint r27.0 Chief Complaint r47.01 g43.909 Reason for Referral Specialty Diagnoses / Procedures Referred By Contac t Referred To Contact Radiology Diagnoses Expressive aphasia Procedures MR angiogram neck wo IV contrast Kristy Grossman NP [address] [place] [phone] Referral ID Status Reason Start Date Expiration Date V isits Requested Visits Authorized [id number] Pending Review 06/22/2024 12/19/2024 1 1 Specialty Diagnoses / Procedures Referred By Contac t Referred To Contact Radiology Diagnoses Expressive aphasia Procedures MR angiogram head wo IV contrast Kristy Grossman NP [address] [place] [phone] Referral ID Status Reason Start Date Expiration Date V isits Requested Visits Authorized [id number] Pending Review 06/22/2024 12/19/2024 1 1 Specialty Diagnoses / Procedures Referred By Contac t Referred To Contact Radiology Diagnoses Episodic migraine (CMS/HCC) Expressive aphasia Procedures MR brain w and wo contrast routine Kristy Grossman NP [address] [place] [phone] Referral ID Status Reason Start Date Expiration Date V isits Requested Visits Authorized [id number] Pending Review 06/22/2024 12/19/2024 1 1 Additional Source Comments (unrecognized sect ion and content) No Status Records FoundNo Status Records FoundNo Status Records FoundNo Status Records FoundNo Status Records Found INFORMATION SOURCE (unrecogn ized section and content) DATE CREATED AUTHOR 04/18/2022 [facility] DATE CREATED AUTHOR AUTHOR'S ORGANIZ ATION 04/20/2022 [facility] DATE CREATED AUTHOR AUTHOR'S ORGANIZ ATION 07/18/[address] [facility] DATE CREATED AUTHOR AUTHOR'S ORGANIZ ATION 09/01/2024 [facility] DATE CREATED AUTHOR AUTHOR'S ORGANIZ ATION 04/01/2025 [facility] Reason for Visit (unrecogniz ed section and content) Reason Comments Dizziness started yesterday Chest Pain at times Shortness of Breath off and on Reason Comments Migraine Reason Comments Migraine Dizziness Reason Comments Migraine Reason Comments Hernia LEFT ING HERNIA, REF BY DR. ELMORE Reason Comments Migraine Dizziness Care Teams (unrecognized sec tion and content) Senior Java Web Developer Relationship Specialty Start Date End Date Ivy Gomez [address] [place] [address] PCP - General Family Medicine 04/19/22 Team Status: Inactive Member Role Status Dates Rory Moya , Attending Provider Active Ivy Gomez MD Primary Care Provider Active Team Status: Active Member Role Status Dates Ivy Gomez MD Primary Care Provider Active Team Status: Active Member Role Status Dates Travis Elmore DO Primary Care Provider Active Team Status: Inactive Member Role Status Dates Kristy Grossman , SR TECHNICAL SALES CONSULTANT-CABBAGE SALTER-C Attending Provider Active Start: July 14, 2024 End: July 14, 2024 Travis Elmore DO Primary Care Provider Active Start: July 14, 2024 End: July 14, 2024 Senior Java Web Developer Relationship Specialty Start Date End Date Ivy Gomez MD [address] [address] PCP - General Family Medicine 12/31/23 Senior Java Web Developer Relationship Specialty Start Date End Date Ivy Gomez MD [address] [address] PCP - General Family Medicine 12/31/23 Senior Java Web Developer Relationship Specialty Start Date End Date Ivy Gomez MD [address] [address] PCP - General Family Medicine 12/31/23 Senior Java Web Developer Relationship Specialty Start Date End Date Ivy Gomez MD [address] [place] [address] PCP - General Family Medicine 12/31/23 Senior Java Web Developer Relationship Specialty Start Date End Date Ivy Gomez MD [address] [place] [address] PCP - General Family Medicine 12/31/23 Senior Java Web Developer Relationship Specialty Start Date End Date Ivy Gomez MD [address] [place] [address] PCP - General Family Medicine 12/31/23 Senior Java Web Developer Relationship Specialty Start Date End Date Travis Elmore DO [address] [place] [address] PCP - General 08/30/24 Senior Java Web Developer Relationship Specialty Start Date End Date Travis Elmore DO [address] [place] [address] PCP - General 08/30/24 Senior Java Web Developer Relationship Specialty Start Date End Date Ivy Gomez MD [address] [place] [address] PCP - General Family Medicine 12/31/23 Kristy Grossman NP [address] [phone] Nurse Practitioner Neurology 01/23/25 Goals (unrecognized section and content) Goals may [...] BE BASED ON THE PRIMARY CLINICAL RECORDS. [facility] [employer] [facility]. provides no warranty or guarantee of the accuracy or completeness of information in this document.
[2025-06-29] MEDS: KETOROLAC TROMETHAMINE 30 MG/ML VIAL 15 MG IVP (11:23)
[2025-06-29 11:28] LABS: Hematocrit 46.3 % (42.0-54.0); Hemoglobin 16.2 g/dL (14.0-18.0); Immature Granulocytes Abs Auto 0.02 10^3/uL (0.00-0.03); Immature Granulocytes Pct Auto 0.3 % (0.0-0.5); Lymphocytes Absolute Auto 1.7 10^3/uL (1.2-3.8); Mean Corpuscular HGB Conc 35.0 g/dL (29.9-35.2); Mean Corpuscular Hemoglobin 31.6 pg (25.9-34.0); Mean Corpuscular Volume 90.4 fL (80.0-94.0); Platelet Count 252 10^3/uL (150-450); Red Blood Count 5.12 10^6/uL (4.70-6.10); White Blood Count 6.3 10^3/uL (4.0-11.0)
[2025-06-29 11:40] LABS: Alanine Aminotransferase 66 U/L (16-63); Albumin Globulin Ratio 1.1; Albumin Level 4.0 g/dL (3.4-5.0); Alkaline Phosphatase 114 U/L (46-116); Anion Gap 11.9; Aspartate Amino Transferase 23 U/L (15-37); Blood Urea Nitrogen 18.0 mg/dL (7.0-18.0); Calcium 9.1 mg/dL (8.5-10.1); Carbon Dioxide 26.3 mmol/L (21.0-32.0); Chloride 103 mmol/L (98-107); Estimated GFR (African America >60 (>=60 mL/min/1.73m^2); Estimated GFR (Non-African Ame >60 (>=60 mL/min/1.73m^2); Globulin 3.7 g/dL; Glucose 133 mg/dL (74-106); Potassium 4.2 mmol/L (3.5-5.1); Sodium 137 mmol/L (136-145); Total Protein 7.7 g/dL (6.4-8.2)
[2025-06-29 13:48] VITALS: BP 119/91; PULSE 79; O2SAT 99
--- NOTE | 2025-06-29 14:02 | ED_ITS ---
HPI - Abdominal Pain General Chief Complaint: Abdominal Pain Stated Complaint: LOWER ABDOMINAL PAIN Time Seen by Provider: 06/29/25 11:10 Source: patient Mode of arrival: walk-in Limitations: no limitations History of Present Illness HPI narrative: 40-year-old male is coming to the ER with a right upper quadrant pain that started last night, according to the patient have a history of diverticulitis and he is presenting today because he thinks you have another episode of that. The patient have no nausea no vomiting and that he had a normal appetite his last meal was last night Patient also have some constipation which is usually his baseline Related Data Home Medications ?Medication ?Instructions ?Recorded ?Confirmed escitalopram oxalate 5 mg tablet 5 mg PO DAILY 4 06/29/25 (Lexapro) lisinopril 10 mg tablet 10 mg PO DAILY 06/19/2406/03 tiotropium bromide 2.5 inhalation 06/29/25 mcg/actuation mist for inhalation (Spiriva Respimat) umeclidinium 62.5 mcg-vilanterol inhalation 06/29/25 25 mcg/actuation powdr for inhalation (Anoro Ellipta) verapamil 120 mg tablet,extended mg PO 06/29/25 release Allergies Allergy/AdvReac Type Severity Reaction Status Date / Time amoxicillin (From Augmentin) AdvReac Unknown Unknown Verified 06/19/24 16:47 clavulanic acid (From AdvReac Unknown Unknown Verified 06/19/24 16:47 Augmentin) Review of Systems ROS Status of ROS 10 or more systems reviewed and unremark able except as noted in history and below [facility] Medical History (Updated 06/29/25 @ 14:05 by Yudi Pearson MD) Mitral valve prolapse ?I34.1 - Nonrheumatic mitral (valve) prolapse (ICD-10) Inguinal hernia ?K40.90 - Unilateral inguinal hernia, without obstruction or gangrene, not specified as recurrent (ICD-10) Fatty liver ?K76.0 - Fatty (change of) liver, not elsewhere classified (ICD-10) Hypertension ?I10 - Essential (primary) hypertension (ICD-10) COPD (chronic obstructive pulmonary disease) ?J44.9 - Chronic obstructive pulmonary disease, unspecified (ICD-10) Brain bleed ?I61.9 - Nontraumatic intracerebral hemorrhage, unspecified (ICD-10) Pyloric stenosis ?K31.1 - Adult hypertrophic pyloric stenosis (ICD-10) Diverticulitis ?K57.92 - Diverticulitis of intestine, part unspecified, without perforation or abscess without bleeding (ICD-10) Surgical History (Updated 06/29/25 @ 13:25 by Jaimie Whelan RN) History of surgery on arm ?Z98.890 - Other specified postprocedural states (ICD-10) Social History Little interest or pleasure in doing things: not at all Feeling down, depressed, or hopeless: not at all Exam Narrative Exam Narrative: Nurses notes and vital signs reviewed and patient is not hypoxic. General: Well-appearing and in no apparent distress. Skin: Warm, dry, no pallor noted. No rash. Head: Normocephalic, atraumatic. Neck: Supple, non-tender. Cardiovascular: Regular Rate and Rhythm without murmur, gallop or rub. Respiratory: No accessory muscle use or respiratory distress. Lungs are clear to auscultation, no wheezing, rales or rhonchi Chest Wall: no tenderness Back: No midline thoracic or lumbar vertebral tenderness. No CVA tenderness Musculoskeletal: normal ROM, no calf or popliteal tenderness, no lower extremity edema/swelling GI: Abdomen is soft, non-distended. Normal bowel sounds. No masses appreciated. Right lower quadrant tenderness noted on palpation with a positive McBurney Neurological: A&O x4. No cranial nerve dysfunction observed. Constitutional Vital Signs, click to edit/add: Last Vital Signs Temp 98.6 F 06/29/25 11:06 Pulse 79 06/29/25 13:48 Resp 18 06/29/25 13:48 BP 119/91 06/29/25 13:48 Pulse Ox 99 06/29/25 13:48 O2 Del Method Room Air 06/29/25 11:06 Course Vital Signs Vital signs: Vital Signs Temperature 98.6 F 06/29/25 11:06 Pulse Rate 89 06/29/25 11:06 Respiratory Rate 18 06/29/25 11:06 Blood Pressure 128/106 H 06/29/25 11:06 Pulse Oximetry 99 06/29/25 11:06 Oxygen Delivery Method Room Air 06/29/25 11:06 Temperature 98.6 F 06/29/25 11:06 Pulse Rate 79 08/28/25 13:48 Respiratory Rate 18 06/29/25 13:48 Blood Pressure 119/91 06/29/25 13:48 Pulse Oximetry 99 06/29/25 13:48 Oxygen Delivery Method Room Air 06/29/25 11:06 MDM - Abdominal Pain MDM Narrative Medical decision making narrative: The patient CBC and chemistry showed no acute pathology CAT scan of the abdomen pelvis showed that the patient have possible acute appendicitis The patient case was discussed with from general surgery from [facility] and he requested the patient to be n.p.o. and transferred to his care The patient does not want to wait for the ambulance and he would like to take his own car to [facility], although I did explain to him that medically he need to be transferred by the ambulance but the patient insisted saying that he does not want to leave his car in the [facility] The patient right now is stable he will be transferring himself by private car and he was instructed about going there directly with provided information The patient provided with a nicotine patch as well Lab Data Labs: Lab Results 06/29/25 Range/Units 11:17 WBC 6.3 (4.0-11.0) 10^3/uL RBC 5.12 (4.70-6.10) 10^6/uL Hgb 16.2 (14.0-18.0) g/dL Hct 46.3 (42.0-54.0) % MCV 90.4 (80.0-94.0) fL MCH 31.6 (25.9-34.0) pg MCHC 35.0 (29.9-35.2) g/dL RDW 12.4 (11.0-15.0) % Plt Count 252 (150-450) 10^3/uL MPV 10.3 (9.5-13.5) fL Neut % (Auto) 59.0 (43.0-75.0) % Lymph % (Auto) 27.4 (20.5-60.0) % [place] % (Auto) 9.2 (1.7-12.0) % Eos % (Auto) 3.3 (0.9-7.0) % Baso % (Auto) 0.8 (0.2-2.0) % Neut # (Auto) 3.7 (1.4-6.5) 10^3/uL Lymph # (Auto) 1.7 (1.2-3.8) 10^3/uL [place] # (Auto) 0.6 (0.3-0.8) 10^3/uL Eos # (Auto) 0.2 (0.0-0.7) 10^3/uL Baso # (Auto) 0.1 (0.0-0.1) 10^3/uL Abs Immat Gran (auto) 0.02 (0.00-0.03) 10^3/uL Imm/Tot Granulo (auto) 0.3 (0.0-0.5) % Sodium 137 (136-145) mmol/L Potassium 4.2 (3.5-5.1) mmol/L Chloride 103 (98-107) mmol/L Carbon Dioxide 26.3 (21.0-32.0) mmol/L Anion Gap 11.9 BUN 18.0 (7.0-18.0) mg/dL Creatinine 0.94 (0.70-1.30) mg/dL Est GFR ( Amer) >60 (>=60 mL/min/1.73m^2) Est GFR (Non-Af Amer) >60 (>=60 mL/min/1.73m^2) BUN/Creatinine Ratio 19.1 Glucose 133 H (74-106) mg/dL Calcium 9.1 (8.5-10.1) mg/dL Total Bilirubin 0.5 (0.2-1.0) mg/dL AST 23 (15-37) U/L ALT 66 H (16-63) U/L Alkaline Phosphatase 114 (46-116) U/L Total Protein 7.7 (6.4-8.2) g/dL Albumin 4.0 (3.4-5.0) g/dL Globulin 3.7 g/dL Albumin/Globulin Ratio 1.1 Discharge Plan Discharge Chief Complaint: Abdominal Pain Clinical Impression: Acute appendicitis Patient Disposition: [facility] Time of Disposition Decision: 14:04
== END 2025-06-29 14:36 | disposition short-term general hospital (02) ==
PROVIDERS: Emergency Provider Emergency Medicine; PCP Family Medicine
DX: K35.80 Unspecified acute appendicitis (principal)
CPT/HCPCS: 36415; 74176; 80053; 85025; 96374; 99285; J1885